=== PATIENT | female | born 1975 | race Caucasian/White ===

== ENCOUNTER 2021-03-25 10:08 | Inpatient (IN) ==
[2021-03-25] MEDS ORDERED: CEFEPIME 2,000 MG/20 ML VIAL IV STA (10:52)
[2021-03-25] MEDS ORDERED: SODIUM CHLORIDE 0.9% 1000ML 1,000 ML IV SCH ×2 (11:00→12:00)
[2021-03-25] MEDS ORDERED: ACETAMINOPHEN 1000 MG/100 ML IV IV STA (11:02)
--- NOTE | 2021-03-25 11:09 | Emergency Department Note ---
Impression & Plan Fever, Tachycardia, Dysuria, Vaginal discharge, Failure of outpatient treatment ED Provider Note NAME: YANE OCONNOR AGE: 45 SEX: F : 1975 ARRIVES VIA: Ambulance INFORMANT: [Patient] ED PROVIDER(S): [Manjinder Garay MD] CHIEF COMPLAINT: Illness HISTORY OF PRESENT ILLNESS: The patient is a 45-year-old female presents with about 10 days of symptoms. She initially had some burning with urination and felt she may have had a UTI. She was started on Cipro for a UTI by her doctors office but, the culture returned negative so it was stopped. The patient then went to urgent care. A pelvic exam was performed and she was given antibiotics for the possibility of PID. She received a shot of what sounds like ceftriaxone and was placed on doxycycline and Flagyl. The patient states that she was told that all of her STD cultures returned negative. The patient has had a fever, headache and some nausea with some mild diarrhea for about a week. She has noticed continued vaginal discharge. Patient was seen a few days ago here in the ED and a Gomez catheter was placed because of urinary retention. She was placed on cefdinir in addition to the doxycycline and Flagyl for a potential of UTI. Yesterday, the patient saw urology and they felt this was a pelvic issue, not a urinary issue. 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 There has been no cough or congestion. She has had no vomiting. She does have an IUD. She is vaccinated for COVID-19, no influenza vaccination. REVIEW OF SYSTEMS: See HPI for pertinent positives and negatives. A total of ten systems were reviewed and were otherwise negative. PMHx/PSHx: See Below SOCIAL HISTORY: See Below. PHYSICAL EXAM: GENERAL: Patient is in no acute distress. HEENT: No acute trauma, normocephalic atraumatic, mucous membranes moist, no nasal congestion, no scleral icterus. NECK: No stridor, no adenopathy, no meningismus, trachea is midline. LUNGS: Clear to auscultation bilaterally, no wheeze, no rhonchi, breath sounds equal. HEART: Mildly tachycardic, regular rhythm, no murmurs. ABDOMEN: Soft, nontender, bowel sounds positive, no hernias, no peritonitis. EXTREMITIES: No cyanosis or edema, full range of motion of all the joints without pain or difficulty, no signs for acute trauma. NEUROLOGIC: Oriented x 3, no acute motor or sensory deficits, no focal weakness. SKIN: No rash, no jaundice, no diaphoresis. Vaginal: There is a Gomez catheter in place. Patient has a brown murky di scharge noted vaginally. A culture was obtained. She is quite tender in the vaginal area although, there is no erythema of the vaginal area/groin that would indicate cellulitis. The patient could not tolerate a speculum exam. This exam was performed with a nurse duralumin mechanic. DIFFERENTIAL DIAGNOSIS: Endometritis, UTI, PID, vaginitis, cervicitis, sepsis, bacteremia, dehydration, viral illness, COVID-19 or influenza, among others. EMERGENCY DEPARTMENT COURSE/PROCEDURES: ECG: Indication was tachycardia. The ECG shows a sinus tachycardia with a rate of 107. There is no ST elevation, no PVCs. The QTc is 448. Continuous Cardiac Monitoring: An order was placed for continuous cardiac monitoring. The monitor shows a rate of 109 with sinus tachycardia. Critical Care Note: I have personally spent 47 minutes of critical care time in the direct management of this patient. This includes bedside care, interpretation of diagnostic studies, and testing, discussion with consultants, patient, and family members, and other required patient management activities. This 47 minutes is in excess of all separately billable procedures. MEDICAL DECISION MAKING: There is no leukocytosis, in fact, the white count was slightly low. There was a subtle anemia with a hemoglobin of 11.7. There was a normal platelet count. No coagulopathy. Sodium was slightly low at 133, no kidney failure. Lactic acid level was not elevated making severe sepsis less likely. AST was slightly elevated, the alk phos and bilirubin were essentially normal. Procalcitonin level was normal. testing was negative. Urinalysis showed some blood and a few white cells, no bacteria by UA. Covid testing returned negative. Influenza testing returned negative. RSV testing returned negative. Chest film did not show any evidence for pneumonia. A culture of the vaginal discharge was sent. The patient presents febrile and tachycardic. She has been on different antibiotics without any improvement. She presents today as she is feeling no better. I do think the patient requires a hospital stay. I am concerned about a vaginal/uterine infection. I did contact OB. The patient was seen by OB in this ED department. The patient will be hospitalized. OB was concerned for the possibility of a herpes infection. The patient is aware of her findings. She understands the need for a hospital stay. I did speak with case management. During the patient's ER time, she was given IV saline, 2 L. She was given IV cefepime and IV Tylenol. Past Med/Surg History Medical History (Updated 03/25/21 @ 14:20 by Manjinder Garay MD) Chronic steroid use Diabetes Hearing loss IUD (intrauterine device) in place No pertinent family history UTI (urinary tract infection) Surgical History H/O sinus surgery Family History Other No pertinent family history Social History Smoking Status: Never smoker Preferred Language: Slovenian Communication Ability: Effective Visual Impairment: No Limitations Hearing Ability: Hard of Hearing Feels Safe at Home: Yes Allergies Allergies Allergy/AdvReac Type Severity Reaction Status Date / Time morphine Allergy Mild HIVES Verified 03/25/21 12:13 Penicillins Allergy Mild HIGH FEVER Verified 03/25/21 12:13 AND HIVES Sulfa (Sulfonamide Allergy Mild HIVES Verified 03/25/21 12:13 Antibiotics) clindamycin Allergy Hives Unverified 03/25/21 12:13 Home Meds Home Medications Medication Instructions Recorded Confirmed azathioprine 50 mg tablet 100 mg PO BID 07/19/18 03/25/21 ibuprofen 200 mg tablet 600 mg PO QID PRN 07/19/18 03/25/21 lisinopril 20 0 tab PO QAM 07/19/18 03/25/21 mg-hydrochlorothiazide 12.5 mg tablet omeprazole 20 mg capsule,delayed 20 mg PO QAM 07/19/18 03/25/21 release semaglutide 1 mg/dose (2 mg/1.5 1 mg SUBCUT WK 07/19/18 03/25/21 mL) subcutaneous pen injector (Ozempic) cholecalciferol (vitamin D3) 25 1,000 unit PO QAM 08/29/18 03/25/21 mcg (1,000 unit) capsule (Vitamin D3) levonorgestrel 14 mcg/24 hrs (3 14 mcg INTRAUTERINE UD 08/29/18 03/23/21 yrs) 13.5 mg intrauterine device (Yumiko) prednisone 5 mg tablet 7.5 mg PO QAM 08/29/18 03/25/21 doxycycline hyclate 100 mg capsule 100 mg PO BID 03/23/21 03/25/21 acetaminophen 500 mg tablet 1,000 mg PO QID PRN 03/25/21 03/25/21 Previous Rx's Medication Instructions Recorded cefdinir 300 mg capsule 300 mg PO BID 10 Days #20 cap 03/23/21 Results & Data (ED) Vital Signs Vital Signs - 24 hr 03/25/21 10:13 03/25/21 12:45 03/25/21 13:00 Temperature 39.3 C H Temperature Source Oral Pulse Rate - Lying 107 H Pulse Rate - Sitting 119 H Pulse Rate - Standing 122 H Pulse Rate 120 H Pulse Rate [Right Finger] 109 H Respiratory Rate 18 18 Respiratory Depth Normal Blood Pressure - Lying 103/69 Blood Pressure - Sitting 116/72 Blood Pressure- Standing 105/69 Blood Pressure 139/76 Blood Pressure [Left Arm] 128/73 Blood Pressure Mean 97 Blood Pressure Mean [Left Arm] 91 Pulse Oximetry 97 97 Oxygen Delivery Method Room Air Room Air Sepsis Recent Fever Within 48 Hours No Sepsis New/Unexplained Change in Mental Status N/A Sepsis Action Taken by Nursing Physician Notified 03/25/21 13:03 Temperature Temperature Source Pulse Rate - Lying Pulse Rate - Sitting Pulse Rate - Standing Pulse Rate Pulse Rate [Right Finger] Respiratory Rate Respiratory Depth Blood Pressure - Lying Blood Pressure - Sitting Blood Pressure- Standing Blood Pressure Blood Pressure [Left Arm] Blood Pressure Mean Blood Pressure Mean [Left Arm] Pulse Oximetry Oxygen Delivery Method Room Air Sepsis Recent Fever Within 48 Hours Sepsis New/Unexplained Change in Mental Status Sepsis Action Taken by Assisted Medications Current Medication List: was personally reviewed by me Laboratory Data Attestation: I reviewed the patient's lab results. Result diagrams: 03/25/21 11:09 03/25/21 11:09 Lab Results 03/25/21 03/25/21 03/25/21 Range/Units 11:09 11:09 11:09 WBC 4.48 L (4.8-10.8) K/uL RBC 3.77 L (4.2-5.4) M/uL Hgb 11.7 L (12.0-16.0) g/dL Hct 35.2 L (37-47) % MCV 93.4 (80-100) fL MCH 31.0 (25-34) pg MCHC 33.2 (32-36) g/dL RDW Std Deviation 53.9 H (36.4-46.3) fL RDW Coeff of Don 15.7 H (11.5-14.5) % Plt Count 244 (130-400) K/uL MPV 10.9 H (7.4-10.4) fL Immature Gran % (Auto) 1.6 % Neut % (Auto) 87.7 % Lymph % (Auto) 5.4 % [place] % (Auto) 4.9 % Eos % (Auto) 0.2 % Baso % (Auto) 0.2 % Neut # (Auto) 3.93 (1.4-6.5) K/uL Lymph # (Auto) 0.24 L (1.2-3.4) K/uL [place] # (Auto) 0.22 (0.11-0.59) K/uL Eos # (Auto) 0.01 (0-0.5) K/uL Baso # (Auto) 0.01 (0-0.2) K/uL Immature Gran # (Auto) 0.07 H (0.00-0.02) K/uL PT 11.7 (9.0-12.0) Seconds INR 1.2 H (0.9-1.1) APTT 28.5 (21.0-31.0) Seconds PTT Ratio 1.1 Sodium (136-145) mmol/L Potassium (3.5-5.1) mmol/L Chloride (98-107) mmol/L Carbon Dioxide (21-32) mmol/L Anion Gap (3-11) BUN (7-18) mg/dl Creatinine (0.6-1.2) mg/dl Est Cr Clr Drug Dosing ml/min Est GFR ( Amer) ml/min Est GFR (Non-Af Amer) ml/min BUN/Creatinine Ratio (10-20) Glucose (70-99) mg/dl Lactate (0.4-2.0) mmol/L Calcium (8.5-10.1) mg/dl Magnesium (1.8-2.4) mg/dl Total Bilirubin (0.2-1) mg/dl AST (15-37) U/L ALT (12-78) Alkaline Phosphatase (45-117) U/L Total Protein (6.4-8.2) gm/dl Albumin (3.4-5.0) gm/dl Globulin (2.5-4.0) gm/dl Albumin/Globulin Ratio (0.9-2) Procalcitonin 0.34 (0-0.5) ng/ml HCG, Qual Negative (Negative) Urine Color Urine Appearance (Clear) Urine pH (4.5-7.5) Ur Specific Ransom (1.000-1.030) Urine Protein (Negative) Urine Glucose (UA) (Negative) Urine Ketones (Negative) Urine Blood (Negative) Urine Nitrite (Negative) Urine Bilirubin (Negative) Urine Urobilinogen (Negative) Ur Leukocyte Esterase (Negative) Urine WBC (Auto) (0-5) /hpf Urine RBC (Auto) (0-4) /hpf U Hyaline Cast (Auto) (0-5) /lpf U Epithel Cells (Auto) (0-5) /lpf Urine Bacteria (Auto) (Negative) SARS-CoV-2 (PCR) (Negative) Influenza Type A (PCR) (Neg) Influenza Type B (PCR) (Neg) RSV (RT-PCR) (Neg) 03/25/21 03/25/21 03/25/21 Range/Units 11:09 11:09 12:30 WBC (4.8-10.8) K/uL RBC (4.2-5.4) M/uL Hgb (12.0-16.0) g/dL Hct (37-47) % MCV (80-100) fL MCH (25-34) pg MCHC (32-36) g/dL RDW Std Deviation (36.4-46.3) fL RDW Coeff of Don (11.5-14.5) % Plt Count (130-400) K/uL MPV (7.4-10.4) fL Immature Gran % (Auto) % Neut % (Auto) % Lymph % (Auto) % [place] % (Auto) % Eos % (Auto) % Baso % (Auto) % Neut # (Auto) (1.4-6.5) K/uL Lymph # (Auto) (1.2-3.4) K/uL [place] # (Auto) (0.11-0.59) K/uL Eos # (Auto) (0-0.5) K/uL Baso # (Auto) (0-0.2) K/uL Immature Gran # (Auto) (0.00-0.02) K/uL PT (9.0-12.0) Seconds INR (0.9-1.1) APTT (21.0-31.0) Seconds PTT Ratio Sodium 133 L (136-145) mmol/L Potassium 3.5 (3.5-5.1) mmol/L Chloride 102 (98-107) mmol/L Carbon Dioxide 25 (21-32) mmol/L Anion Gap 6.0 (3-11) BUN 8 D (7-18) mg/dl Creatinine 0.82 (0.6-1.2) mg/dl Est Cr Clr Drug Dosing 95.4 ml/min Est GFR ( Amer) 101.6 ml/min Est GFR (Non-Af Amer) 87.6 ml/min BUN/Creatinine Ratio 9.3 L (10-20) Glucose 158 H (70-99) mg/dl Lactate 0.9 (0.4-2.0) mmol/L Calcium 8.6 (8.5-10.1) mg/dl Magnesium 2.0 (1.8-2.4) mg/dl Total Bilirubin 0.8 (0.2-1) mg/dl AST 87 H (15-37) U/L ALT 68 (12-78) Alkaline Phosphatase 44 L (45-117) U/L Total Protein 7.1 (6.4-8.2) gm/dl Albumin 2.5 L (3.4-5.0) gm/dl Globulin 4.6 H (2.5-4.0) gm/dl Albumin/Globulin Ratio 0.5 L (0.9-2) Procalcitonin (0-0.5) ng/ml HCG, Qual (Negative) Urine Color Dark Yellow Urine Appearance Clear (Clear) Urine pH 6.0 (4.5-7.5) Ur Specific [place]ansom 1.022 (1.000-1.030) Urine Protein 1+ H (Negative) Urine Glucose (UA) Negative (Negative) Urine Ketones 1+ H (Negative) Urine Blood 3+ H (Negative) Urine Nitrite Negative (Negative) Urine Bilirubin Negative (Negative) Urine Urobilinogen Negative (Negative) Ur Leukocyte Esterase 1+ H (Negative) Urine WBC (Auto) 10-30 H (0-5) /hpf Urine RBC (Auto) >30 H (0-4) /hpf U Hyaline Cast (Auto) 1-5 (0-5) /lpf U Epithel Cells (Auto) 20-30 H (0-5) /lpf Urine Bacteria (Auto) Negative (Negative) SARS-CoV-2 (PCR) (Negative) Influenza Type A (PCR) (Neg) Influenza Type B (PCR) (Neg) RSV (RT-PCR) (Neg) 03/25/21 Range/Units 13:13 WBC (4.8-10.8) K/uL RBC (4.2-5.4) M/uL Hgb (12.0-16.0) g/dL Hct (37-47) % MCV (80-100) fL MCH (25-34) pg MCHC (32-36) g/dL RDW Std Deviation (36.4-46.3) fL RDW Coeff of Don (11.5-14.5) % Plt Count (130-400) K/uL MPV (7.4-10.4) fL Immature Gran % (Auto) % Neut % (Auto) % Lymph % (Auto) % [place] % (Auto) % Eos % (Auto) % Baso % (Auto) % Neut # (Auto) (1.4-6.5) K/uL Lymph # (Auto) (1.2-3.4) K/uL [place] # (Auto) (0.11-0.59) K/uL Eos # (Auto) (0-0.5) K/uL Baso # (Auto) (0-0.2) K/uL Immature Gran # (Auto) (0.00-0.02) K/uL PT (9.0-12.0) Seconds INR (0.9-1.1) APTT (21.0-31.0) Seconds PTT Ratio Sodium (136-145) mmol/L Potassium (3.5-5.1) mmol/L Chloride (98-107) mmol/L Carbon Dioxide (21-32) mmol/L Anion Gap (3-11) BUN (7-18) mg/dl Creatinine (0.6-1.2) mg/dl Est Cr Clr Drug Dosing ml/min Est GFR ( Amer) ml/min Est GFR (Non-Af Amer) ml/min BUN/Creatinine Ratio (10-20) Glucose (70-99) mg/dl Lactate (0.4-2.0) mmol/L Calcium (8.5-10.1) mg/dl Magnesium (1.8-2.4) mg/dl Total Bilirubin (0.2-1) mg/dl AST (15-37) U/L ALT (12-78) Alkaline Phosphatase (45-117) U/L Total Protein (6.4-8.2) gm/dl Albumin (3.4-5.0) gm/dl Globulin (2.5-4.0) gm/dl Albumin/Globulin Ratio (0.9-2) Procalcitonin (0-0.5) ng/ml HCG, Qual (Negative) Urine Color Urine Appearance (Clear) Urine pH (4.5-7.5) Ur Specific [place] (1.000-1.030) Urine Protein (Negative) Urine Glucose (UA) (Negative) Urine Ketones (Negative) Urine Blood (Negative) Urine Nitrite (Negative) Urine Bilirubin (Negative) Urine Urobilinogen (Negative) Ur Leukocyte Esterase (Negative) Urine WBC (Auto) (0-5) /hpf Urine RBC (Auto) (0-4) /hpf U Hyaline Cast (Auto) (0-5) /lpf U Epithel Cells (Auto) (0-5) /lpf Urine Bacteria (Auto) (Negative) SARS-CoV-2 (PCR) NEGATIVE (Negative) Influenza Type A (PCR) Negative (Neg) Influenza Type B (PCR) Negative (Neg) RSV (RT-PCR) Negative (Neg) Administered Medications Valacyclovir HCl (Valacyclovir Hcl 500 Mg Tablet) 1,000 mg PO BID KATHY Stop: 04/04/21 12:59 Last Admin: 03/25/21 13:37 Dose: 1,000 mg Documented by: [id number] Discontinued Medications Acetaminophen (Acetaminophen 1000 Mg/100 Ml Iv) 1,000 mg IV NOW STA Stop: 03/25/21 11:03 Last Admin: 03/25/21 12:31 Dose: 1,000 mg Documented by: [id number] Cefepime HCl (Maxipime) 2,000 mg in 20 mls @ 5 mls/min IV NOW STA; Protocol Stop: 03/25/21 10:55 Last Admin: 03/25/21 12:21 Dose: 5 mls/min Documented by: [id number] Imaging Data Radiologist's Impression: Chest X-Ray 03/25/21 10:53 XR chest 1V portable CLINICAL HISTORY: SEPSIS COMPARISON STUDY: Chest radiograph and chest CT September 14, 2020. FINDINGS: Lung volumes are normal. Linear left lower lung opacity reflects subsegmental atelectasis. There is no pneumothorax or pleural effusion. Cardiac size is normal. Mediastinal contours are normal. There is no evidence for pulmonary edema. IMPRESSION: No acute cardiopulmonary findings. ACT 112: Negative or not required by law. Electronically signed by: Aldo Reeder M.D. 03/25/2021 11:07 AM Discharge Plan Visit Data Chief Complaint: Illness ED Provider: Manjinder Garay Discharge Problem: Fever, Tachycardia, Dysuria, Vaginal discharge, Failure of outpatient treatment Patient Disposition: Admitted As Inpatient Condition: Fair Forms Stand Alone Forms: [facility] Nicut Xierkang Prescriptions Prescriptions: No Action prednisone 5 mg tablet 7.5 mg PO QAM RF: 0 cholecalciferol (vitamin D3) [Vitamin D3] 1,000 unit Capsule 1,000 unit PO QAM RF: 0 Yumiko 14 mcg/24 hrs (3 yrs) 13.5 mg Intrauterine Device 14 mcg INTRAUTERINE UD RF: 0 lisinopril-hydrochlorothiazide 20-12.5 mg tablet 0 tab PO QAM RF: 0 azathioprine 50 mg tablet 100 mg PO BID RF: 0 ibuprofen 200 mg Tablet 600 mg PO QID PRN (Reason: Pain) RF: 0 omeprazole 20 mg capsule,delayed release(DR/EC) 20 mg PO QAM RF: 0 Ozempic 1 mg/dose (2 mg/1.5 mL) pen injector 1 mg subcut WK RF: 0 acetaminophen 500 mg Tablet 1,000 mg PO QID PRN (Reason: Fever) RF: 0 doxycycline hyclate 100 mg capsule 100 mg PO BID RF: 0 cefdinir 300 mg capsule 300 mg PO BID 10 Days Qty: 20 RF: 0 Referrals Referrals: John Matt DO [Primary Care Provider] -
[2021-03-25 12:37] LABS: Hematocrit (blood only) 35.2 % (37-47); Hemoglobin 11.7 g/dL (12.0-16.0); Mean Corpuscular Hgb Conc 33.2 g/dL (32-36); Mean Corpuscular Volume 93.4 fL (80-100); Red Blood Count 3.77 M/uL (4.2-5.4); White Blood Count 4.48 K/uL (4.8-10.8)
[2021-03-25 12:38] LABS: Basophils # (auto) 0.01 K/uL (0-0.2); Basophils % (auto) 0.2 %; Eosinophils # (auto) 0.01 K/uL (0-0.5); Eosinophils % (auto) 0.2 %; Immature Granulocytes # (auto) 0.07 K/uL (0.00-0.02); Immature Granulocytes % (auto) 1.6 %; Lymphocytes # (auto) 0.24 K/uL (1.2-3.4); Lymphocytes % (auto) 5.4 %; Mean Platelet Volume 10.9 fL (7.4-10.4); Monocytes # (auto) 0.22 K/uL (0.11-0.59); Monocytes % (auto) 4.9 %; Neutrophils # (auto) 3.93 K/uL (1.4-6.5); Neutrophils % (auto) 87.7 %; Platelet Count 244 K/uL (130-400); RDW Coefficient of Variation 15.7 % (11.5-14.5); RDW Standard Deviation 53.9 fL (36.4-46.3)
[2021-03-25 12:48] LABS: Appearance Urine Clear (Clear); Bacteria Urine Automated Negative (Negative); Bilirubin Urine Negative (Negative); Blood Urine 3+ (Negative); Color Urine Dark Yellow; Epithelial Cell Urine Auto 20-30 /lpf (0-5); Glucose Urine UA Negative (Negative); Ketones Urine 1+ (Negative); Leukocyte Esterase Urine 1+ (Negative); Nitrite Urine Negative (Negative); Protein Urine 1+ (Negative); RBC Urine Automated >30 /hpf (0-4); Specific Gravity Urine 1.022 (1.000-1.030); Urobilinogen Urine Negative (Negative)
[2021-03-25 12:51] LABS: INR 1.2 (0.9-1.1); Partial Thromboplastin Ratio 1.1; Partial Thromboplastin Time 28.5 Seconds (21.0-31.0); Prothrombin Time 11.7 Seconds (9.0-12.0)
[2021-03-25 13:02] LABS: Pregnancy Test, Serum Negative (Negative)
[2021-03-25 13:14] LABS: Albumin Globulin Ratio 0.5 (0.9-2); Albumin Level 2.5 gm/dl (3.4-5.0); BUN Creatinine Ratio 9.3 (10-20); Bilirubin,Total 0.8 mg/dl (0.2-1); Calcium 8.6 mg/dl (8.5-10.1); Creatinine Clr Calc Pharmacy 95.4 ml/min; Est GFR (African American) 101.6 ml/min; Est GFR (Non-African American) 87.6 ml/min; Globulin 4.6 gm/dl (2.5-4.0); Potassium 3.5 mmol/L (3.5-5.1); Total Protein 7.1 gm/dl (6.4-8.2)
[2021-03-25 13:20] LABS: Procalcitonin 0.34 ng/ml (0-0.5)
[2021-03-25] MEDS: valACYclovir HCL 500 MG TABLET PO SCH ×2 (13:37→22:06)
[2021-03-25 14:03] LABS: Influenza A virus by PCR Negative (Neg); Influenza B virus by PCR Negative (Neg); RSV by PCR Negative (Neg)
[2021-03-25] MEDS: LACTATED RINGER'S 1,000 ML IV SCH (17:00)
[2021-03-25] MEDS: IBUPROFEN 600 MG TAB PO PRN (19:53)
[2021-03-25] MEDS ORDERED: GLUCOSE 40% GEL 15 GM TUBE PO PRN (20:15)
[2021-03-25] MEDS ORDERED: GLUCAGON FOR INJ 1 MG VIAL SQ PRN (20:15)
[2021-03-25] MEDS ORDERED: GLUCOSE 10 TABS/TUBE PO PRN (20:15)
[2021-03-25] MEDS ORDERED: CARBOHYDRATES FOR HYPOGLYCEMIA PO PRN (20:15)
[2021-03-25] MEDS ORDERED: DEXTROSE 50% 50 ML SYRINGE IV PRN (20:15)
[2021-03-25] MEDS ORDERED: INSULIN ASPART 100 UNITS/ML 3 ML PEN SC SCH (21:00)
[2021-03-25] MEDS: CEFDINIR 300 MG CAP PO SCH (22:04)
[2021-03-25] MEDS: DOXYCYCLINE HYCLATE 100 MG CAP PO SCH (22:05)
[2021-03-25] MEDS: azaTHIOprine 50 MG TAB PO SCH (22:07)
[2021-03-26] MEDS: LACTATED RINGER'S 1,000 ML IV SCH ×3 (00:55→16:48)
[2021-03-26] MEDS: azaTHIOprine 50 MG TAB PO SCH ×2 (08:51→20:13)
[2021-03-26] MEDS: CEFDINIR 300 MG CAP PO SCH ×2 (08:53→20:14)
[2021-03-26] MEDS: CHOLECALCIFEROL 1,000 UNITS 25 MCG TAB PO SCH (08:54)
[2021-03-26] MEDS: DOXYCYCLINE HYCLATE 100 MG CAP PO SCH ×2 (08:54→20:13)
[2021-03-26] MEDS: LISINOPRIL/HCTZ 20/12.5MG 1 TAB TAB PO SCH (08:55)
[2021-03-26] MEDS: PANTOprazole 40 MG TAB PO SCH (08:57)
[2021-03-26] MEDS: predniSONE 2.5 MG TAB PO SCH (08:57)
[2021-03-26] MEDS: valACYclovir HCL 500 MG TABLET PO SCH ×2 (08:58→20:12)
--- NOTE | 2021-03-26 11:55 | Progress Note ---
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
[2021-03-26 12:08] LABS: Basophils # (auto) 0.01 K/uL (0-0.2); Basophils % (auto) 0.3 %; Eosinophils # (auto) 0.03 K/uL (0-0.5); Eosinophils % (auto) 0.9 %; Hematocrit (blood only) 34.3 % (37-47); Immature Granulocytes # (auto) 0.05 K/uL (0.00-0.02); Immature Granulocytes % (auto) 1.5 %; Lymphocytes # (auto) 0.26 K/uL (1.2-3.4); Mean Corpuscular Hemoglobin 30.7 pg (25-34); Mean Corpuscular Volume 95.8 fL (80-100); Mean Platelet Volume 10.3 fL (7.4-10.4); Monocytes # (auto) 0.19 K/uL (0.11-0.59); Monocytes % (auto) 5.9 %; Neutrophils # (auto) 2.69 K/uL (1.4-6.5); Neutrophils % (auto) 83.4 %; Platelet Count 267 K/uL (130-400); RDW Standard Deviation 56.6 fL (36.4-46.3); Red Blood Count 3.58 M/uL (4.2-5.4); White Blood Count 3.23 K/uL (4.8-10.8)
[2021-03-26 12:12] LABS: Mean Corpuscular Hgb Conc 32.1 g/dL (32-36)
[2021-03-26 12:33] LABS: Albumin Level 2.2 gm/dl (3.4-5.0); BUN Creatinine Ratio 11.9 (10-20); Creatinine Clr Calc Pharmacy 130.4 ml/min; Est GFR (African American) 132.4 ml/min; Est GFR (Non-African American) 114.2 ml/min; Potassium 3.5 mmol/L (3.5-5.1)
[2021-03-26 12:36] LABS: Albumin Globulin Ratio 0.5 (0.9-2); Bilirubin,Total 0.8 mg/dl (0.2-1); Globulin 4.2 gm/dl (2.5-4.0); Total Protein 6.4 gm/dl (6.4-8.2)
--- NOTE | 2021-03-26 12:55 | Electrocardiogram Report ---
Test Reason : Blood Pressure : / mmHG Vent. Rate : 107 BPM Atrial Rate : 107 BPM P-R Int : 152 ms QRS Dur : 076 ms QT Int : 336 ms P-R-T Axes : 046 043 048 degrees QTc Int : 448 ms Sinus tachycardia Otherwise normal ECG When compared with ECG of 14-SEP-2020 11:04, No significant change was found Confirmed by Abhishek Kidd ([id number]) on 03/26/2021 12:55:07 PM Referred By: REFERRED SELF Confirmed By:Abhishek Kidd
[2021-03-26] MEDS: LIDOCAINE 4% CREAM 15 GM TUBE EXT PRN (16:51)
[2021-03-26] MEDS: IBUPROFEN 600 MG TAB PO PRN (16:52)
[2021-03-26] MEDS: ACETAMINOPHEN 500 MG TAB PO PRN (20:33)
[2021-03-27] MEDS: LACTATED RINGER'S 1,000 ML IV SCH ×2 (00:15→08:09)
--- NOTE | 2021-03-27 07:14 | Gynecologic Progress Note ---
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 Plan to d/c home tomorrow if doing well Admission and Anticipated Discharge Date Admission Date: March 25, 2021 Subjective Patient comfortable in bed, was unable to urinate during night or first thing this AM. States she did not drink much liquid overnight, however normally she is able to urinate first thing in the morning. She had diarrhea last night. Denies fevers or chills. Otherwise feeling well. Patient states she is not keen to have a catheter placed, and one of the worse top 3 pains of her life. Review of Systems Review of Systems: All systems reviewed & are unremarkable except as noted in HPI & below Physical Exam Constitutional: WD/WN, vitals as above Respiratory: normal respiratory effort, lungs clear to auscultation Cardiovascular: RRR, no murmur, no edema Gastrointestinal (Abdomen): normal bowel sounds, soft, nontender, no hepatosplenomegaly Results & Data ([facility]) Vital Signs (Past 12 Hours) Vital Signs Temp Pulse Resp BP Pulse Ox 03/27/21 00:15 36.5 C 78 16 118/71 98 03/26/21 19:55 37.0 C 87 17 111/77 98
[2021-03-27] MEDS ORDERED: LORazepam 0.5 MG TAB SL STA (07:55)
[2021-03-27] MEDS: CEFDINIR 300 MG CAP PO SCH ×2 (08:05→20:59)
[2021-03-27] MEDS: azaTHIOprine 50 MG TAB PO SCH ×2 (08:05→20:59)
[2021-03-27] MEDS: DOXYCYCLINE HYCLATE 100 MG CAP PO SCH ×2 (08:06→21:00)
[2021-03-27] MEDS: CHOLECALCIFEROL 1,000 UNITS 25 MCG TAB PO SCH (08:06)
[2021-03-27] MEDS: LISINOPRIL/HCTZ 20/12.5MG 1 TAB TAB PO SCH (08:07)
[2021-03-27] MEDS: predniSONE 2.5 MG TAB PO SCH (08:07)
[2021-03-27] MEDS: PANTOprazole 40 MG TAB PO SCH (08:07)
[2021-03-27] MEDS: valACYclovir HCL 500 MG TABLET PO SCH ×2 (08:08→20:59)
[2021-03-27] MEDS ORDERED: BENZOCAINE 20% AER SPR 82.5 GM CAN EXT PRN (08:48)
[2021-03-27] MEDS: LIDOCAINE 4% CREAM 15 GM TUBE EXT PRN (08:50)
[2021-03-27] MEDS ORDERED: BENZOCAINE 20% AER SPR 82.5 GM CAN EXT ONE (08:50)
[2021-03-27] MEDS: ACETAMINOPHEN 500 MG TAB PO PRN (16:17)
[2021-03-27] MEDS: IBUPROFEN 600 MG TAB PO PRN (17:35)
[2021-03-27 18:16] LABS: SARS CoV2 RNA(COVID-19) InHosp NEGATIVE (Negative)
[2021-03-28 05:45] LABS: Basophils # (auto) 0.02 K/uL (0-0.2); Basophils % (auto) 0.5 %; Eosinophils # (auto) 0.07 K/uL (0-0.5); Eosinophils % (auto) 1.9 %; Hemoglobin 10.9 g/dL (12.0-16.0); Immature Granulocytes # (auto) 0.04 K/uL (0.00-0.02); Immature Granulocytes % (auto) 1.1 %; Lymphocytes # (auto) 0.73 K/uL (1.2-3.4); Lymphocytes % (auto) 19.6 %; Mean Corpuscular Hemoglobin 30.9 pg (25-34); Mean Corpuscular Hgb Conc 32.1 g/dL (32-36); Mean Corpuscular Volume 96.3 fL (80-100); Mean Platelet Volume 9.5 fL (7.4-10.4); Monocytes % (auto) 10.8 %; Neutrophils # (auto) 2.46 K/uL (1.4-6.5); Neutrophils % (auto) 66.1 %; Platelet Count 350 K/uL (130-400); RDW Coefficient of Variation 15.6 % (11.5-14.5); RDW Standard Deviation 54.9 fL (36.4-46.3); Red Blood Count 3.53 M/uL (4.2-5.4); White Blood Count 3.72 K/uL (4.8-10.8)
[2021-03-28 06:23] LABS: Albumin Level 2.2 gm/dl (3.4-5.0); BUN Creatinine Ratio 10.2 (10-20); Calcium 8.5 mg/dl (8.5-10.1); Creatinine Clr Calc Pharmacy 119.7 ml/min; Est GFR (African American) 128.7 ml/min; Potassium 3.5 mmol/L (3.5-5.1)
[2021-03-28 06:26] LABS: Albumin Globulin Ratio 0.6 (0.9-2); Bilirubin,Total 0.7 mg/dl (0.2-1); Total Protein 6.2 gm/dl (6.4-8.2)
[2021-03-28] MEDS: valACYclovir HCL 500 MG TABLET PO SCH ×2 (07:44→20:52)
[2021-03-28] MEDS: DOXYCYCLINE HYCLATE 100 MG CAP PO SCH (07:44)
[2021-03-28] MEDS: CHOLECALCIFEROL 1,000 UNITS 25 MCG TAB PO SCH (07:45)
[2021-03-28] MEDS: PANTOprazole 40 MG TAB PO SCH (07:45)
[2021-03-28] MEDS: azaTHIOprine 50 MG TAB PO SCH ×2 (07:45→20:52)
[2021-03-28] MEDS: LISINOPRIL/HCTZ 20/12.5MG 1 TAB TAB PO SCH (07:45)
[2021-03-28] MEDS: CEFDINIR 300 MG CAP PO SCH (07:46)
[2021-03-28] MEDS: predniSONE 2.5 MG TAB PO SCH (07:46)
--- NOTE | 2021-03-28 17:26 | Obstetrical Progress Note ---
Date of Service March 28, 2021 Assessment & Plan (1) Herpes, vulvovaginitis: Hd #4 Pt doing well Folety cath reinserted yesterday for urinary retention PE; Vulva lesions improved compared to day of admission Discussed continuing marvin for 1 more week before removal or trial of removal with Cardura tonight Pt Wishes to try the later Plan remove marvin tonight and start Cardura and blader scan Subjective Review of Systems All systems reviewed & are unremarkable except as noted in HPI & below Physical Exam Constitutional WD/WN, vitals as above Eyes PERRL, conjunctivae normal, anicteric sclerae ENMT external ear and nose normal, oropharynx normal Neck trachea midline, no thyromegaly Respiratory normal respiratory effort, lungs clear to auscultation Cardiovascular RRR, no murmur, no edema Chest (Breasts) normal inspection/palpation of breasts Gastrointestinal (Abdomen) normal bowel sounds, soft, nontender, no hepatosplenomegaly Musculoskeletal no cyanosis or clubbing, extremities motor strength 5/5 Skin + incision (Incision clean,dry and intact) Neurologic patellar DTR's 2+ bilat, sensation intact Psychiatric A+Ox3, euthymic affect Genitourinary no vaginal lesions, no adnexal mass Lymphatic no cervical or axillary lymphadenopathy Results & Data ([facility]) Vital Signs (Past 12 Hours) Vital Signs Temp Pulse Resp BP Pulse Ox 03/28/21 15:27 36.8 C 84 18 116/73 97 03/28/21 11:15 36.9 C 84 18 118/79 96 03/28/21 07:45 37.6 C H 84 18 123/76 96
[2021-03-28] MEDS ORDERED: DOXAZosin MESYLATE TAB 2 MG TAB PO SCH (21:00)
[2021-03-29] MEDS: valACYclovir HCL 500 MG TABLET PO SCH (08:25)
[2021-03-29] MEDS: azaTHIOprine 50 MG TAB PO SCH (08:25)
[2021-03-29] MEDS: CHOLECALCIFEROL 1,000 UNITS 25 MCG TAB PO SCH (08:26)
[2021-03-29] MEDS: PANTOprazole 40 MG TAB PO SCH (08:26)
[2021-03-29] MEDS: LISINOPRIL/HCTZ 20/12.5MG 1 TAB TAB PO SCH (08:27)
[2021-03-29] MEDS: predniSONE 2.5 MG TAB PO SCH (08:27)
[2021-03-29] MEDS: LIDOCAINE 4% CREAM 15 GM TUBE EXT PRN (08:28)
[2021-03-29] MEDS ORDERED: SEMAGLUTIDE INJ SQ SCH ×2 (09:00)
--- NOTE | 2021-03-29 09:15 | Gynecologic Progress Note ---
Date of Service March 29, 2021 Assessment & Plan (1) Herpes, vulvovaginitis: Plan: Hd #5 Pt doing well Continue Cardura and f/u in office in 1 week Admission and Anticipated Discharge Date Admission Date: March 25, 2021 Subjective Patient doing well since Gomez was removed. She is able to ambulate, and urinate. Postvoid residual bladder scans have all been less than 100. She is keen to go home this morning. No other complaints. Review of Systems Review of Systems: All systems reviewed & are unremarkable except as noted in HPI & below Physical Exam Constitutional: WD/WN, vitals as above Respiratory: normal respiratory effort, lungs clear to auscultation Cardiovascular: RRR, no murmur, no edema Gastrointestinal (Abdomen): normal bowel sounds, soft, nontender, no hepatosplenomegaly Results & Data ([facility]) Vital Signs (Past 12 Hours) Vital Signs Temp Pulse Pulse Resp BP Pulse Ox 03/29/21 07:40 36.4 C L 101 H 16 109/73 03/29/21 03:30 36.4 C L 96 H 18 111/74 96 03/28/21 23:30 37.1 C 92 H 16 115/73 96
[2021-03-29 11:11] LABS: Chlamydia Trach RNA NOT DETECTED (NOT DETECTED); GC (Neis gonorrhoeae) RNA NOT DETECTED (NOT DETECTED)
[2021-03-29 21:06] LABS: Herpes Simplex Ab IgG-1 <0.90 index; Herpes Simplex Ab IgG-2 <0.90 index
== END 2021-03-29 11:58 | disposition home or self-care (01) | DRG 758 ==
LOC: ED 10:08 → EDINP 12:10 → 4N 19:09

== ENCOUNTER 2023-03-31 18:59 | Inpatient (IN) ==
--- OUTSIDE RECORDS SUMMARY | 2023-03-31 19:05 | External Medical Summary ---
Author Name Unknown Address Unknown Organization [id number]:[facility] [place] [address] Laboratory Report Ordering Provider Test Date Status 03/28/2023 10:51:27 Final Observation Date Value Abnormality Reference (Units ) Status BUN 03/28/2023 10:51:27 21 Above high normal 6-20 (mg/dL) Final Creatinine 03/28/2023 10:51:27 0.8 0.5-1.0 (mg/dL) Final Glomerular filtration rate/1.73 sq M.predicted [Volume Rate/Area] in Serum, Plasma or Blood by Creatinine-based formula (CKD-EPI) 03/28/2023 10:51:27 >90 >=60 (mL/min) Final eGFR is calculated based on the CKD-EPI 2020 equation SODIUM 03/28/2023 10:51:27 133 Below low normal 135 -146 (mmol/L) Final Potassium 03/28/2023 10:51:27 4.1 3.5-5.1 (m mol/L) Final Cl 03/28/2023 10:51:27 99 98-107 (mm ol/L) Final CO2 03/28/2023 10:51:27 20 Below low normal 22- 32 (mmol/L) Final Anion gap 03/28/2023 10:51:27 14 7-15 (mmol /L) Final Glucose 03/28/2023 10:51:27 208 Above high normal 70 -120 (mg/dL) Final Calcium 03/28/2023 10:51:27 8.4 8.4-10.2 ( mg/dL) Final Performing Location [facility] [place] [address]
--- OUTSIDE RECORDS SUMMARY | 2023-03-31 19:05 | External Medical Summary | Summary of Care ---
Author Name Unknown Organization [facility] Address [address] [place] [address] Phone [phone] Care Team Providers Care Central Supply Supervisor Name Role Phone Babatunde Mattnancy Buitragosimon Primary Care Provider Reason for Visit * Reason Comments Emergency Department Follow-Up Pt save stew with a fever the Saturday before , went to urgent care-started on doxy, continued to not feel better-went to ER treated for UTI, this past week fever was 104 at night. Went back to ER and was started back on doxy for anaplasmosis. Temp this morning was 100, pt now c/o nausea, heart is racing, short of breath, weakness. Encounter Details Date Type Department Care Team (Late st Contact Info) Description 03/28/2023 9:40 AM EST Office Visit [facility] [address] [facility] [address] Alisia Walton PA-C [address] [place] [place] [address] Anaplasmosis*; Generalized weakness; Fever in other diseases; Nausea; Dehydration; Type 2 diabetes mellitus with hemoglobin A1c goal of less than 7.0% (HCC); HTN, goal below 140/90 Allergies Active Allergy Reactions Criticality Noted Date Comments Clindamycin Hives 09/13/2020 Morphine Sulfate 01/05/2005 Penicillins 01/24/1999 hives Sulfa Antibiotics 09/03/2002 documented as of this encounter (statuses as of 03/28/2023) Medications Medication Sig Dispensed Refills Start Date End Date Status FERROUS GLUCONATE 225 (27 FE) MG PO TABS Take by mouth every morning. 0 Active Blood Glucose Monitoring Suppl (ONETOUCH ULTRA SYSTEM) w/Device KITIndications:Typ e 2 diabetes mellitus with hemoglobin A1c goal of less than 7.0% (HCC),Family history of ischemic heart disease,HTN, goal below 140/90 Use as directed 4 times a day as needed for Hyperglycemia (high sugar). 1 Kit 0 01/20/2018 Active Cholecalciferol (VITAMIN D) 1000 units Tablet Take 1 Tablet by mouth in the morning. 0 Active Kyleena 19.5 MG Intrauterine Intrauterine Device (Levonorgestrel)In dications:Encounte r for IUD insertion Insert 1 Each into uterus once. 0 Active OneTouch Ultra Blue In Vitro Strip (Glucose Blood)Indications: Type 2 diabetes mellitus with hemoglobin A1c goal of less than 7.0% (HCC),Family history of ischemic heart disease,HTN, goal below 140/90 Use up to four times a day as directed 400 Strip 4 12/12/2021 Active metFORMIN HCl 500 MG Oral Tablet (Glucophage)Indica tions:Type 2 diabetes mellitus with hemoglobin A1c goal of less than 7.0% (HCC),Family history of ischemic heart disease,HTN, goal below 140/90 TAKE 1 TABLET BY MOUTH EVERY DAY WITH BREAKFAST 90 Tablet 3 01/26/2022 Active B-12-SL 1000 MCG Sublingual Tablet Sublingual (Cyanocobalamin)In dications:B12 deficiency Place 1,000 mcg under the tongue in the morning. 90 Tablet 3 07/03/2022 Active Ozempic (1 MG/DOSE) 4 MG/3ML Subcutaneous Solution Pen-injector (Semaglutide (1 MG/DOSE))Indicatio ns:Type 2 diabetes mellitus with hemoglobin A1c goal of less than 7.0% (HCC) Inject 1 mg under the skin once a week. 9 mL 5 07/03/2022 Active Lisinopril 20 MG Oral Tablet (Prinivil)Indicati ons:HTN, goal below 140/90 TAKE 1 TABLET BY MOUTH EVERY MORNING 90 Tablet 3 07/06/2022 Active Diclofenac Sodium 1 % External Gel (Voltaren)Indicati ons:Plantar fasciitis,Right foot pain,Left foot pain APPLY 4 GRAMS TOPICALLY ON THE AREA OF THE BILATERAL FEET UP TO THREE TIMES DAILY NEEDED FOR PAIN. 150 g 3 08/03/2022 Active azaTHIOprine 50 MG Oral Tablet (Imuran)Indication s:pt taking 4 pills daily Take 2 Tablets by mouth in the morning and 2 Tablets before bedtime. 4 pills daily. 360 Tablet 3 10/15/2022 Active predniSONE 5 MG Oral Tablet (Deltasone)Indicat ions:Autoimmune inner ear disease, bilateral Take 1.5 Tablets by mouth in the morning. 135 Tablet 3 10/15/2022 Active valACYclovir HCl 500 MG Oral Tablet (Valtrex)Indicatio ns:Herpes simplex virus infection TAKE 1 TABLET BY MOUTH EVERY DAY FOR TRANSMISSION REDUCTION 90 Tablet 3 12/13/2022 Active OneTouch Delica Lancets 33GIndications:Typ e 2 diabetes mellitus with hemoglobin A1c goal of less than 7.0% ([facility]),Type 2 diabetes mellitus with diabetic polyneuropathy, without long-term current use of insulin ([facility]) Use up to 4 times daily as needed to check for hyper or hypo glycemia 100 Each 3 01/01/2023 Active Omeprazole 20 MG Oral Capsule Delayed Release (PriLOSEC)Indicati ons:Gastro-esophag eal reflux disease without esophagitis TAKE 1 CAPSULE BY MOUTH EVERY MORNING 90 Capsule 1 03/15/2023 Active Doxycycline Hyclate 100 MG Oral Tablet Take 1 Tablet by mouth in the morning and 1 Tablet before bedtime. 0 03/20/2023 Active Probiotic Daily Oral Capsule Take 1 Capsule by mouth in the morning. 0 Active Ondansetron HCl 4 MG Oral TabletIndications: Nausea Take 1 Tablet by mouth every 6 hours as needed for Nausea. 30 Tablet 1 03/28/2023 Active documented as of this encounter (statuses as of 03/28/2023) Active Problems Problem Noted Date Diagnosed Date URI with cough and congestion 07/18/2022 Type 2 diabetes mellitus with diabetic polyneuro anton 07/18/2021 Acute urinary retention 05/04/2021 Neuropathy 10/26/2020 Gastro-esophageal reflux disease without esophag itis 10/26/2020 Posterior subcapsular polar age-related cataract , bilateral 10/26/2020 Disorder involving the immune mechanism 05/06/19 20 High risk for fracture due to osteoporosis by DE XA scan 05/06/2019 Oscillopsia 07/02/2017 HTN, goal below 140/90 06/27/2015 Overview: Consider change to Labetalol before attempting conception Type 2 diabetes mellitus wit h hemoglobin A1c goal of less than 7.0% 07/20/2014 Overview: ICD-10 update of inactive term 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 Rheum consult suggested, placed. Balance disorder 05/19/2014 Family history of ischemic heart disease 012 Vertigo 10/17/2009 documented as of this encounter (statuses as of 03/28/2023) Resolved Problems Problem Noted Date Diagnosed Date Resolved Date PID (acute pelvic inflammatory disease) 04/10/2021 04/10/2021 Cervical high risk human pap illomavirus (HPV) DNA test positive 07/19/2017 05/06/2019 Overview: Pap negative, 2018. Suggest colpo. IUD (intrauterine device) in place 07/09/2017 04/24/2021 Overview: Yumiko. 2017. 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 CDC/WHO level 3 risk Tobacco use disorder 10/04/2005 012 PRESCRIP-ORAL CONTRACEPT 10/04/2005 documented as of this encounter (statuses as of 03/28/2023) Immunizations Name Administration Dates Next Due COVID-19 mRNA, LNP-s, No Pre serve, 2-Dose Series (TrepUp) 04/26/2021,08/26/2020,08/03/2020 Hepatitis B, 20+ yrs 10/20/2004,05/23/2004,04/22 PPD 05/22/2010 Pneumococcal Conjugate Vacc, 13 Valent (Prevnar) 06/02/2019 Pneumococcal Conjugate Vacci ne, 20-valent ([id number]) 07/03/2022 Pneumococcal Polysaccharide PPV23 (Pneumovax) 10/18/2014 SEASONAL INFLUENZA, PF, 6 M & Above, IM , (FLULAVAL or FLUZONE) 01/01/2023,02/13/2020 Seasonal Influenza, QUAD, wi th Preserv, 6 mons & Above, 0.5 mL, IM 04/10/2022 TDAP (age 10 and older)(Boostrix) 10/26/2020 TDAP (age 11 and older)(Adacel) 05/22/2010 documented as of this encounter Social History Tobacco Use Types Packs/Day Years Used Date Smoking Tobacco: Former Cigarettes 0.5 12 Q uit: 07/28/2010 Smokeless Tobacco: Never Comments:started age 20 Alcohol Use Standard Drinks/Week Comments Yes 0 (1 standard drink = 0.6 oz pur e alcohol) glass wine every month PHQ-2 Answer Date Recorded PHQ Adult Total Score 1 07/03/2022 Hunger Vital Sign Answer Date Recorded Worried About Running Out of Food in the Last Ye ar Never true 07/01/2019 Ran Out of Food in the Last Year Never true 07/01/2019 Sex and Gender Information Value Date Recorded Sex Assigned at Female 09/15/2020 2:43 PM EDT Gender Identity Female 09/15/2020 2:43 PM EDT Sexual Orientation Straight 09/15/2020 2: 43 PM EDT Job Start Date Occupation Industry Not on file Not on file Not on file documented as of this encounter Last Filed Vital Signs Vital Sign Reading Time Taken Comments Blood Pressure 80/44 03/28/2023 9:38 AM EST Pulse 114 03/28/2023 9:38 AM EST Temperature 36.8 C (98.2 F) 03/28/2023 9:38 AM ES T Respiratory Rate 16 03/28/2023 9:38 AM EST Oxygen Saturation 96% 03/28/2023 9:38 AM EST Inhaled Oxygen Concentration - - Weight 78.5 kg (173 lb 1.9 oz) 03/28/2023 9:38 A M EST Height 165.1 cm (5' 5") 03/28/2023 9:38 AM EST Body Mass Index 28.81 03/28/2023 9:38 AM EST documented in this encounter Progress Notes * Alisia Walton PA-C - 03/28/2023 10:16 AM EST Images from the original note were not included. History of Present Illness Tahira Alvarado is a 47 year old female that presents for Emergency Department Follow-Up (Pt started with a fever the Saturday before , went to urgent care-started on doxy, continued to notfeel better-went to ER treated for UTI, this past week fever was 104 at night. Went back to ER and was started back on doxy for anaplasmosis. Temp this morning was 100, pt now c/o nausea, heart is racing, short of breath, weakness.) Patient is a 47 year old female who presents for a follow up from the ER. Has had multiple trips tothe ER with illness. She has been experiencing fever, headache, weakness, fatigue Vegetarian diet. Diabetic Has not been able to eat much Physical Exam Vitals: 03/28/23 0938 Temp: 36.8 C (98.2 F) Pulse: 114 Resp: 16 SpO2: 96% BP: 80/44 BMI: 28.81 BP Readings from Last 3 Encounters: 03/28/23 80/44 03/13/23 106/68 01/01/23 112/78 Wt Readings from Last 3 Encounters: 03/28/23 78.5 kg (173 lb 1.9 oz) 03/13/23 83.6 kg (184 lb 6.4 oz) 01/01/23 84.4 kg (186 lb 2 oz) General: alert, no distress, well nourished, well developed, and cooperative Head: Normocephalic, No masses, lesions, tenderness or abnormalities Eye Exam: PERRLA, extraocular movements intact, conjunctiva are pink and non- injected, sclera clear Ears: External ears normal, Canals clear, TM's Normal Nose: no mucosal erythema, no mucosal edema, no purulent discharge Oropharynx: no exudate, no erythema, lips, buccal mucosa, and tongue normal, and mucous membranes are moist Neck: supple, no adenopathy, no bruits, thyroid normal size, non-tender, without nodularity Heart: regular rate & rhythm, no murmur, and no gallops Lungs: chest symmetric with normal AP diameter, no chest deformities noted, normal respiratory rateand rhythm, no chest wall tenderness, diaphragmatic excursion normal, lungs clear to auscultation Abdomen: abdomen soft, non-tender, normal bowel sounds, no masses or organomegaly, no rebound or guarding, no CVA tenderness, no bladder distention identified, and no bruits Extremities: less than 2 second capillary refill, no joint deformities, effusion, or inflammation, no edema, no skin discoloration, no clubbing, no cyanosis Skin: skin color, texture, turgor are normal, no rashes or significant lesions I have reviewed the following results: CBC and BMP Assessment and Plan Anaplasmosis (Primary) Generalized weakness Fever in other diseases Nausea - Ondansetron HCl 4 MG Oral Tablet; Take 1 Tablet by mouth every 6 hours as needed for Nausea. Dehydration - CBC; Future; Expected date: 03/28/2023 - BASIC METABOLIC PANEL; Future; Expected date: 03/28/2023 - IV HYDRATION, INITIAL, 31 MIN - 1 HR - CBC - BASIC METABOLIC PANEL Type 2 diabetes mellitus with hemoglobin A1c goal of less than 7.0% (HCC) HTN, goal below 140/90 Unable to get IV. Patient refused 2nd attempt at an IV. Discussed diet recommended ensure. Wrap-Up Time: I spent a total of 30-39 minutes (exact time 39 mins) on the date of service in preparation, delivery, and documentation of the care provided to Tahira Alvarado excluding any time spent in the performance of separately billed services. documented in this encounter Nursing Notes * Mago Flores LPN - 03/28/2023 9:38 AM EST The patient has been properly identified by confirmation of name and date of . Chief Complaint Patient presents with Emergency Department Follow-Up Pt started with a fever the Saturday before , went to urgent care- started on doxy, continued to not feel better-went to ER treated for UTI, this past week fever was 104 at night. Went back to ER and was started back on doxy for anaplasmosis. Temp this morning was 100, pt now c/o nausea, heart is racing, short of breath, weakness. documented in this encounter Plan of Treatment Upcoming Encounters Date Type Department Care Team (Late st Contact Info) Description 07/18/2023 4:40 PM EDT Office Visit Family Practice [facility] [address] [place] [address] John Matt, [address] [place] [address] 11/04/2023 4:00 PM EDT Imaging Radiology [facility] [address] [place] [address] Scheduled Orders Name Type Priority Associated Diagnoses Orde r Schedule IV HYDRATION, INITIAL, 31 MIN - 1 HR Procedures Routine Dehydration Ordered: 03/28/2023 Health Maintenance Due Date Last Done Comments HPV/Co-Test 09/15/2007 Cologuard 2022 Colonoscopy 2022 Colorectal Cancer Screening 2022 Fecal Occult Blood Test 2022 Sigmoidoscopy 2022 Cervical Cancer Screening 12/09/2022 Pap Smear 12/09/2022 12/10/2019, 04/23, 07/09/2017, Additional history exists COVID-19 Vaccine ( season) 2022 04/26/2021, 08/26/2020, 08/03/2020 HbA1c 06/29/2023 12/29/2022, 03/0 12/2022, 09/25/2021, Additional history exists Depression Screening 07/04/2023 07/03/2022 Diabetic Foot Exam 07/04/2023 07/03/2022, 0 07/03/2022, 03/31/2020, Additional history exists Diabetic Eye Exam 07/07/2023 07/06/2022, , 03/31/2020, Additional history exists DXA Scan 10/11/2023 10/10/2020, 10/07/2017 Mammogram 11/02/2023 11/01/2022, 02/20, 09/16/2020, Additional history exists Albumin/Creatinine Ratio 12/30/2023 023, 06/28/2022, 10/07/2019, Additional history exists B-12 12/30/2023 12/29/2022, 05/2022, 09/25/2021, Additional history exists GFR 03/28/2024 03/28/2023, 12/2022, 06/28/2022, Additional history exists Lipid Panel 12/30/2027 12/29/2022, 12/2022, 09/25/2021, Additional history exists DTaP,Tdap,and Td Vaccines (8 - Td or Tdap) 10/26/2030 10/26/2020, 05/22/2010, 06/08/2003, Additional history exists Hepatitis B Completed 10/20/2004, 04/2004, 04/22/2004 Pneumococcal Vaccine: Pediatrics (0 to 5 Years) and At-Risk Patients (6 to 64 Years) Completed 07/03/2022, 06/02/2019, 10/18/2014 Influenza Vaccine (FLU shot) Completed 03/2023, 04/10/2022, 02/13/2020 GARDASIL-HPV IMMUNIZATION SERIES Aged Out No longer eligible based on patient's age to complete this topic MENINGOCOCCAL (MENACTRA/MENVEO) Aged Out No longer eligible based on patient's age to complete this topic documented as of this encounter Medical Devices Implanted Type Area Vermin Exterminator Device Identifier Shelf Expiration Date Model / Serial / Lot Screw 4mm Ti Low Pro Sdrill - [id number] Implanted:Qty: 2 on 10/20/2019 by Eriberto Gar MD at [facility] Right: Ear [employer] 10/19/2020 [id number] / / documented as of this encounter Procedures Procedure Name Priority Date/Time Associated Diagnosis Comments BASIC METABOLIC PANEL Routine 03/28/2023 10:51 AM EST Dehydration CBC Routine 03/28/2023 10:51 AM EST Dehydration documented in this encounter Results * (ABNORMAL) BASIC METABOLIC PANEL (03/28/2023 10:51 AM EST) BUN 21(H) 6 - 20 mg/dL 03/28/2023 12:37 PM EST [place] [address] Creatinine 0.8 0.5 - 1.0 mg/dL 03/28/2023 12:37 PM EST [place] [address] Estimated Glomerular Filtration Rate >90 >=60 mL/min 03/28/2023 12:[address] Comment:eGFR is calculated b ased on the CKD-EPI 2020 equation Sodium 133(L) 135 - 146 mmol/L 03/28/2023 12:37 PM [place] [address] Potassium 4.1 3.5 - 5.1 mmol/L 03/28/2023 12:37 PM EST [place] [address] Chloride 99 98 - 107 mmol/L 03/28/2023 12:37 PM [place] [address] CO2 20(L) 22 - 32 mmol/L 03/28/2023 12:37 PM [place] [address] Anion Gap 14 7 - 15 mmol/L 03/28/2023 12:37 PM [place] [address] Glucose 208(H) 70 - 120 mg/dL 03/28/2023 12:37 PM [place] [address] Calcium 8.4 8.4 - 10.2 mg/dL 03/28/2023 12:37 PM [place] [address] Blood Venous blood specimen / Unknown Venipuncture / Unknown 03/28/2023 10:51 AM EST 03/28/2023 10:51 AM EST July Isabelle MARQUEZ LAB BLOOD ORDERABLES [place] [address] [place] [address] * (ABNORMAL) CBC (03/28/2023 10:51 AM EST) WBC 1.13(L) 4.00 - 10.80 K/uL 03/28/2023 11:21 AM EST [place] [address] Comment: Results rechecked. RBC 2.62 3.85 - 5.15 M/uL 03/28/2023 11:[address] HGB 8.4(L) 12.0 - 15.3 g/dL 03/28/2023 11:[address] HCT 26.4(L) 36.0 - 45.2 % 03/28/2023 11:[address] MCV 100.8 81.5 - 97.5 fL 03/28/2023 11:[address] MCH 32.1 27.0 - 34.0 pg 03/28/2023 11:[address] MCHC 31.8 32.0 - 36.0 g/dL 03/28/2023 11:[address] RDW 17.0 11.5 - 15.5 % 03/28/2023 11:[address] PLT 56(L) 140 - 400 K/uL 03/28/2023 11:[address] Comment: Results rechecked. MPV 14.0 6.6 - 11.1 fL 03/28/2023 11:[address] Blood Venous blood specimen / Unknown Venipuncture / Unknown 03/28/2023 10:51 AM EST 03/28/2023 10:51 AM EST July Isabelle MARQUEZ LAB BLOOD ORDERABLES [place] [address] [place] [address] documented in this encounter Visit Diagnoses Diagnosis Anaplasmosis- Primary Other ehrlichiosis Generalized weakness Other malaise and fatigue Fever in other diseases Nausea Nausea alone Dehydration Type 2 diabetes mellitus with hemoglobin A1c goal of less than 7.0% (HCC) HTN, goal below 140/90 Unspecified essential hypertension documented in this encounter Advance Directives Latest Code Status on File Code Status Date Activated Date Inactivated Comments Full Code 10/20/2019 11:18 AM 10/20/2019 9:30 PM This order reflects the patients wishes and were consensually agreed upon. Question Answer Comments Discussion of Advance Directives occurred with: Not Discussed Code Status History Code Status Date Activated Date Inactivated Comments Full Code 04/30/2017 7:55 AM 04/30/2017 1:36 PM This or irish reflects the patients wishes and were consensually agreed upon. Care Teams Central Supply Supervisor Relationship Specialty Start Date End Date John Matt DO [address] [place] [address] PCP - General Family Medicine 05/06/19 documented as of this encounter
--- OUTSIDE RECORDS SUMMARY | 2023-03-31 19:05 | External Medical Summary ---
Author Name Unknown Address Unknown Organization [id number] [place] [address] Laboratory Report Ordering Provider Test Date Status 03/28/2023 10:51:27 Final Observation Date Value Abnormality Reference (Units ) Status WBC, Total 03/28/2023 10:51:27 1.13 Below low normal 4. 00-10.80 (K/uL) Final Results rechecked.
null RBC 03/28/2023 10:51:27 2.62 3.85-5.15 (M/uL) Final Hemoglobin 03/28/2023 10:51:27 8.4 Below low normal 12 .0-15.3 (g/dL) Final HCT 03/28/2023 10:51:27 26.4 Below low normal 36. 0-45.2 (%) Final MCV 03/28/2023 10:51:27 100.8 81.5-97.5 (fL) Final MCH 03/28/2023 10:51:27 32.1 27.0-34.0 (pg) Final MCHC 03/28/2023 10:51:27 31.8 32.0-36.0 (g/dL) Final RDW 03/28/2023 10:51:27 17.0 11.5-15.5 (%) Final Platelets 03/28/2023 10:51:27 56 Below low normal 140 -400 (K/uL) Final Results rechecked.
null MPV 03/28/2023 10:51:27 14.0 6.6-11.1 ( fL) Final Performing Location [facility] [place] [address]
[2023-03-31] MEDS ORDERED: CEFEPIME 2,000 MG/20 ML VIAL IV STA (19:14)
[2023-03-31] MEDS ORDERED: SODIUM CHLORIDE 0.9% 1,000 ML IV SCH ×2 (19:15→21:45)
[2023-03-31] MEDS ORDERED: ACETAMINOPHEN 1,000 MG/100 ML VIAL IV STA (19:28)
--- NOTE | 2023-03-31 19:35 | Emergency Department Note ---
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 She is still on doxycycline. She thought for a while her fever was improving and her symptoms were improving but then in the last 2 days, things seemed to be worsening. She feels dehydrated, she has no appetite. She has lost weight. She now has a fever again. Today, she had rigors and was flushed. She presents for evaluation. The patient has no urinary complaints. There has been no diarrhea. She does admit to some nausea with occasional vomiting and she believes this is from her doxycycline. No sore throat, no cough or congestion. She does admit to some mild shortness of breath this evening. PMHx/PSHx/Social Hx: See Below PHYSICAL EXAM: GENERAL: Patient is in no acute distress. HEENT: No acute trauma, normocephalic atraumatic, mucous membranes dry, no nasal congestion. Face is flushed. NECK: No stridor, no adenopathy, no meningismus, trachea is midline. LUNGS: Clear to auscultation bilaterally, no wheeze, no rhonchi, breath sounds equal. HEART: Tachycardic, regular rhythm, no murmurs. ABDOMEN: Soft, nontender, no peritonitis. EXTREMITIES: No cyanosis, full range of motion of all the joints without pain or difficulty. NEUROLOGIC: Oriented x 3, no acute motor or sensory deficits, no focal weakness. SKIN: No jaundice, no diaphoresis. DIFFERENTIAL DIAGNOSIS: Sepsis or bacteremia, tickborne illness, UTI, viral illness, dehydration, electrolyte imbalance, failed outpatient management, among others. EMERGENCY DEPARTMENT PROCEDURES: MEDICAL DECISION MAKING: There is a neutropenia noted with a white count of 0.26. Hemoglobin is low at 6.7. Platelet count is quite low at 17. No renal failure. Lactic acid level is elevated at over 4 consistent with infection/sepsis. Magnesium is slightly low. Liver enzyme elevations were noted. ECG showed a sinus tachycardia, no ischemia. Cardiac enzyme testing x 1 was not consistent with acute cardiac injury. Procalcitonin level was elevated consistent with bacterial infection. Respiratory bio fire was completely negative. Lyme disease testing was equivocally positive with IgM positive findings and IgG negative findings. Babesia and anaplasmosis smears were both negative. Send out reference testing is pending. Ehrlichiosis send out testing is pending. Chest x-ray did not show mediastinal widening, pneumonia or pneumothorax. [place] testing returned negative. On exam, the patient was tachycardic and febrile. Her blood pressure was borderline low. The patient does meet criteria for sepsis. Given her laboratory findings, I was concerned with tickborne illness, in particular, Babesia infection. The patient received 2.5 L of IV saline, this was coverage for 30 cc/kg of fluid hydration given her actual body weight. She was initially to receive IV cefepime as empiric coverage but, developed itching and what appeared to be an allergic reaction to the cefepime. This medication was halted and she received 25 mg of IV Benadryl. The Benadryl did seem to cause resolution of symptoms. Patient was ordered for IV Zithromax as this is coverage for babesiosis. She received IV Tylenol. The patient is in need of a hospital stay. She does meet criteria for sepsis. She will likely require a red blood cell transfusion, I suspect she will benefit from an ID consult while here in the hospital. Tickborne disease does seem a very likely possibility and again, I am concerned about babesiosis. Patient has done well in the ED with treatment. She does not appear toxic to me by exam. She is not hypoxic. I did speak with the patient at length, I spoke with her family. I spoke with case management, the on-call hospitalist was consulted. Prior/Outside records/notes reviewed: Family practice note from 03/21/2023 discussing her fever and anaplasmosis and the plan moving forward. ECG per my interpretation: Indication was tachycardia. The ECG shows a sinus tachycardia with a rate of 134. There is no ST elevation, no PVCs. There is some diffuse nonspecific ST change. The QTc is 412. Continuous Cardiac Monitoring per my interpretation: An order was placed for continuous cardiac monitoring. The monitor shows a rate of 126 with sinus tachycardia. Imaging/x-ray results per my interpretation: Chest x-ray does not show mediastinal widening, pneumonia or pneumothorax. Chronic Medical/Social conditions affecting care: Significant hearing loss Care/Management discussed with: Case management, the on-call hospitalist. Level of care consideration(s): After review of the information above and other included data: --I believe the patient requires escalation of care to admission Critical Care Note: I have personally spent 47 minutes of critical care time in the direct management of this patient. This includes bedside care, interpretation of diagnostic studies, and testing, discussion with consultants, patient, and family members, and other required patient management activities. This 47 minutes is in excess of all separately billable procedures. DISPOSITION: Admission Past Med/Surg History Medical History Finger amputation, traumatic Failure of outpatient treatment Vaginal discharge Dysuria Tachycardia Fever UTI (urinary tract infection) IUD (intrauterine device) in place Chronic steroid use Diabetes Hearing loss Surgical History History of cochlear implant Uses cochlear implant No pertinent family history 2 left Wrist surgery H/O sinus surgery Family History Other Alcoholism Arthritis Bipolar 1 disorder Cataract Diabetes 1.5, managed as type 2 Glaucoma Heart disease Hyperlipemia Hypertension No pertinent family history Testicular cancer Social History Smoking Status: Former smoker Tobacco Type: Cigarettes Second Hand Exposure: No; Do You Dip or Chew Tobacco: No; Hx Alcohol Use: No Hx Substance Use: No Preferred Language: Greek Communication Ability: Effective Visual Impairment: No Limitations Hearing Ability: Hard of Hearing Prorate Clerk Required: No Beliefs That Will Affect Care: None Current Living Situation: Alone and Spouse Current Living Situation Comment: Lives at home alone/sig other Other Information That Helps Us Care for You: No Feels Safe at Home: Yes Safety Concerns: Feels Safe At This Time Assistive Devices: None Allergies Allergies Allergy/AdvReac Type Severity Reaction Status Date / Time clindamycin Allergy Intermediate Hives Verified 03/21/23 10:41 morphine Allergy Intermediate HIVES Verified 03/21/23 10:41 Penicillins Allergy Intermediate HIGH FEVER Verified 03/21/23 10:41 AND HIVES Sulfa (Sulfonamide Allergy Intermediate HIVES Verified 03/21/23 10:41 Antibiotics) Home Meds Home Medications Medication Instructions Recorded Confirmed azathioprine 50 mg tablet 100 mg PO BID 07/19/18 03/31/23 ibuprofen 200 mg tablet 600 mg PO QID PRN Pain 07/19/18 03/31/23 omeprazole 20 mg capsule,delayed 20 mg PO QAM 07/19/18 03/31/23 release cholecalciferol (vitamin D3) 25 1,000 unit PO QAM 08/29/18 03/31/23 mcg (1,000 unit) capsule (Vitamin D3) prednisone 5 mg tablet 7.5 mg PO QAM 08/29/18 03/31/23 acetaminophen 500 mg tablet 1,000 mg PO DIRECTED PRN 03/25/21 03/31/23 Fever/PAIN cyanocobalamin (vitamin B-12) 1,000 mcg PO DAILY 03/20/23 03/31/23 1,000 mcg tablet (Vitamin B-12) ferrous sulfate 325 mg (65 mg 325 mg PO DAILY 03/20/23 03/31/23 iron) tablet (iron) lisinopril 20 mg tablet 20 mg PO QAM 03/20/23 03/31/23 semaglutide 1 mg/dose (4 mg/3 mL) 1 mg subcut WK 03/20/23 03/31/23 subcutaneous pen injector (Ozempic) valacyclovir 500 mg tablet 500 mg PO QPM 03/20/23 03/31/23 ondansetron HCl 4 mg tablet 4 mg PO Q6 PRN Nausea 03/31/23 03/31/23 Previous Rx's Medication Instructions Recorded doxycycline hyclate 100 mg tablet 100 mg PO Q12H 14 days #28 tabs 03/20/23 Results & Data (ED) Vital Signs Vital Signs - 24 hr 03/31/23 19:08 03/31/23 19:08 03/31/23 19:15 Temperature 38.1 C H Temperature Source Oral Pulse Rate 126 H 133 H Pulse Rate [Apical] 126 H Pulse Rate from SpO2 Sensor Respiratory Rate 20 20 Respiratory Effort / Characteristics Non-Labored Spontaneous Non-Labored Spontaneous Respiratory Depth Normal Normal Blood Pressure 104/64 Blood Pressure [Right Arm] 104/64 Blood Pressure Mean 77 Blood Pressure Mean [Right Arm] 77 Blood Pressure Position Lying Blood Pressure Position [Right Arm] Lying Pulse Oximetry 94 94 Oxygen Delivery Method Room Air Room Air Sepsis Recent Fever Within 48 Hours Yes Sepsis New/Unexplained Change in Mental Status N/A Sepsis Action Taken by Nursing Physician Notified 03/31/23 19:16 03/31/23 19:30 03/31/23 19:48 Temperature Temperature Source Pulse Rate 133 H 135 H Pulse Rate [Apical] Pulse Rate from SpO2 Sensor 133 H 134 H Respiratory Rate 17 17 Respiratory Effort / Characteristics Respiratory Depth Blood Pressure 92/43 L Blood Pressure [Right Arm] Blood Pressure Mean 60 Blood Pressure Mean [Right Arm] Blood Pressure Position Blood Pressure Position [Right Arm] Pulse Oximetry 96 95 Oxygen Delivery Method Sepsis Recent Fever Within 48 Hours Sepsis New/Unexplained Change in Mental Status Sepsis Action Taken by Nursing 03/31/23 19:48 03/31/23 20:00 03/31/23 20:00 Temperature Temperature Source Pulse Rate 138 H 134 H Pulse Rate [Apical] Pulse Rate from SpO2 Sensor 137 H 134 H Respiratory Rate 19 22 Respiratory Effort / Characteristics Respiratory Depth Blood Pressure 88/48 L Blood Pressure [Right Arm] Blood Pressure Mean 60 Blood Pressure Mean [Right Arm] Blood Pressure Position Blood Pressure Position [Right Arm] Pulse Oximetry 95 93 Oxygen Delivery Method Sepsis Recent Fever Within 48 Hours Sepsis New/Unexplained Change in Mental Status Sepsis Action Taken by Nursing 03/31/23 20:30 03/31/23 20:30 03/31/23 21:00 Temperature Temperature Source Pulse Rate 123 H Pulse Rate [Apical] Pulse Rate from SpO2 Sensor 123 H Respiratory Rate 17 Respiratory Effort / Characteristics Respiratory Depth Blood Pressure 99/56 L 83/46 L Blood Pressure [Right Arm] Blood Pressure Mean 94 69 Blood Pressure Mean [Right Arm] Blood Pressure Position Blood Pressure Position [Right Arm] Pulse Oximetry 95 Oxygen Delivery Method Sepsis Recent Fever Within 48 Hours Sepsis New/Unexplained Change in Mental Status Sepsis Action Taken by Nursing 03/31/23 21:00 03/31/23 21:11 03/31/23 21:11 Temperature Temperature Source Pulse Rate 116 H 113 H Pulse Rate [Apical] Pulse Rate from SpO2 Sensor 114 H Respiratory Rate 21 18 Respiratory Effort / Characteristics Respiratory Depth Blood Pressure 101/52 L Blood Pressure [Right Arm] Blood Pressure Mean 67 Blood Pressure Mean [Right Arm] Blood Pressure Position Blood Pressure Position [Right Arm] Pulse Oximetry 94 Oxygen Delivery Method Sepsis Recent Fever Within 48 Hours Sepsis New/Unexplained Change in Mental Status Sepsis Action Taken by Nursing 03/31/23 21:30 03/31/23 21:30 Temperature Temperature Source Pulse Rate 115 H Pulse Rate [Apical] Pulse Rate from SpO2 Sensor 115 H Respiratory Rate 17 Respiratory Effort / Characteristics Respiratory Depth Blood Pressure 85/49 L Blood Pressure [Right Arm] Blood Pressure Mean 66 Blood Pressure Mean [Right Arm] Blood Pressure Position Blood Pressure Position [Right Arm] Pulse Oximetry 93 Oxygen Delivery Method Sepsis Recent Fever Within 48 Hours Sepsis New/Unexplained Change in Mental Status Sepsis Action Taken by Group Home Medications Current Medication List: was personally reviewed by me Laboratory Data Attestation: I reviewed the patient's lab results. 03/31/23 19:19 03/31/23 19:19 Lab Results 03/31/23 03/31/23 03/31/23 Range/Units 19:19 20:58 21:08 WBC 0.26 L* (4.8-10.8) K/ul RBC 2.14 L (4.20-5.40) M/uL Hgb 6.7 L* (12.0-16.0) g/dl Hct 20.7 L* (37.0-47.0) % MCV 96.7 (80.0-100.0) fL MCH 31.3 (25.0-34.0) pg MCHC 32.4 (32.0-36.0) g/dL RDW Std Deviation 59.6 H (36.4-46.3) fL RDW Coeff of Don 16.7 H (11.5-14.5) % Plt Count 17 L* (130-400) K/uL MPV 13.4 H (9.4-12.4) fL Immature Gran % (Auto) Cancelled Neut % (Auto) Cancelled Lymph % (Auto) Cancelled [place] % (Auto) Cancelled Eos % (Auto) Cancelled Baso % (Auto) Cancelled Neut # (Auto) Cancelled Lymph # (Auto) Cancelled [place] # (Auto) Cancelled Eos # (Auto) Cancelled Baso # (Auto) Cancelled Immature Gran # (Auto) Cancelled Neutrophils % (Manual) Cancelled Band Neutrophils % Cancelled Lymphocytes % (Manual) Cancelled Prolymphocyte % Cancelled Reactive Lymphs % (Man) Cancelled Monocytes % (Manual) Cancelled Eosinophils % (Manual) Cancelled Basophils % (Manual) Cancelled Metamyelocytes % (Man) Cancelled Myelocytes % (Man) Cancelled Promyelocytes % (Man) Cancelled Blast Cells % (Manual) Cancelled Plasma Cell % (Manual) Cancelled Other Cells % Cancelled Nucleated RBC % Cancelled Neutrophils # (Manual) Cancelled Band Neutrophils # Cancelled Total Absolute Neuts Cancelled Lymphocytes # (Manual) Cancelled Prolymphocyte # Cancelled Reactive Lymphs # Cancelled Total Abs Lymphocytes Cancelled Monocytes # (Manual) Cancelled Eosinophils # (Manual) Cancelled Basophils # (Manual) Cancelled Metamyelocytes # (Man) Cancelled Myelocytes # (Manual) Cancelled Promyelocytes # (Man) Cancelled Blast Cells # (Man) Cancelled Plasma Cell # (Manual) Cancelled Other Cells # Cancelled Nucleated RBCs # (Man) Cancelled Hypersegmented Neuts Cancelled Hyposegmented Neuts Cancelled Hypogranular Neuts Cancelled Large Granular Lymphs Cancelled # Lrg Granular Lymphs Cancelled Hairy Cells Cancelled Smudge Cells Cancelled Toxic Granulation Cancelled Toxic Vacuolation Cancelled Dohle Bodies Cancelled Bubba Rods Cancelled Platelet Estimate Signific. Decreased L (Normal) Hypogranular Platelets Cancelled Giant Platelets Cancelled Platelet Satelliting Cancelled RBC Morphology Cancelled Polychromasia Cancelled Hypochromasia Cancelled Poikilocytosis Cancelled Basophilic Stippling Cancelled Anisocytosis Cancelled Microcytosis Cancelled Macrocytosis Cancelled Spherocytes Cancelled Pappenheimer Bodies Cancelled Sickle Cells Cancelled Target Cells Cancelled Tear Drop Cells Cancelled Ovalocytes Cancelled Stomatocytes Cancelled [place] Bodies Cancelled Echinocytes Cancelled Acanthocytes (Spur) Cancelled Rouleaux Cancelled RBC Agglutinates Cancelled Schistocytes Cancelled [place] Cell Cancelled Sodium 135 L (136-145) mmol/L Potassium 4.3 (3.5-5.1) mmol/L Chloride 108 H (98-107) mmol/L Carbon Dioxide 17 L (21-32) mmol/L Anion Gap 10 (3-11) BUN 24 H (6-23) mg/dl Creatinine 0.71 (0.6-1.2) mg/dl Est Cr Clr Drug Dosing 104.1 ml/min Est GFR ( Amer) 119.2 ml/min Est GFR (Non-Af Amer) 102.9 ml/min BUN/Creatinine Ratio 33.8 H (10-20) Glucose 132 H (70-99(Fasting)) mg/dl Lactate 4.2 H* 2.8 H* (0.4-2.0) mmol/L Calcium 7.8 L (8.6-10.3) mg/dl Magnesium 1.6 L (1.7-2.4) mg/dl Total Bilirubin 2.0 H (0.2-1.0) mg/dl Direct Bilirubin 1.2 H (0-0.2) mg/dl AST 97 H (13-39) U/L ALT 33 (7-52) U/L Alkaline Phosphatase 202 H (34-104) U/L Lactate Dehydrogenase 343 H (86-244) U/L Troponin I High Sens 10.2 (0-14) pg/ml Total Protein 4.5 L (6.0-8.3) gm/dl Albumin 2.1 L (3.4-5.0) gm/dl Procalcitonin 1.01 H (0-0.5) ng/ml Random Cortisol 5.42 mcg/dl Adenovirus (PCR) Not Detected (NotDetected) Anaplasma Smear See Comment Babesia Smear See Comment B. pertussis DNA (PCR) Not Detected (NotDetected) B.parapertussis DNA PCR Not Detected (NotDetected) Lyme Disease IgG Ab Negative (Negative) Lyme Disease IgM Ab Positive A (Negative) C. pneumoniae DNA (PCR) Not Detected (NotDetected) Coronavirus OC43 (PCR) Not Detected (NotDetected) Coronavirus HKU1 (PCR) Not Detected (NotDetected) Coronavirus 229E (PCR) Not Detected (NotDetected) SARS-CoV-2 (PCR) Not Detected (NotDetected) Coronavirus NL63 (PCR) Not Detected (NotDetected) Monoscreen Negative (Negative) Human Metapneumovir PCR Not Detected (NotDetected) Influenza Type A (PCR) Not Detected (NotDetected) Influenza Type B (PCR) Not Detected (NotDetected) M. pneumoniae (PCR) Not Detected (NotDetected) Parainfluenza 1 (PCR) Not Detected (NotDetected) Parainfluenza 2 (PCR) Not Detected (NotDetected) Parainfluenza 3 (PCR) Not Detected (NotDetected) Parainfluenza 4 (PCR) Not Detected (NotDetected) RSV (PCR) Not Detected (NotDetected) Entero/Rhino (PCR) Not Detected (NotDetected) Blood Parasites ID Cancelled Blood Type Antibody Screen Crossmatch 03/31/23 Range/Units 21:09 WBC (4.8-10.8) K/ul RBC (4.20-5.40) M/uL Hgb (12.0-16.0) g/dl Hct (37.0-47.0) % MCV (80.0-100.0) fL MCH (25.0-34.0) pg MCHC (32.0-36.0) g/dL RDW Std Deviation (36.4-46.3) fL RDW Coeff of Don (11.5-14.5) % Plt Count (130-400) K/uL MPV (9.4-12.4) fL Immature Gran % (Auto) Neut % (Auto) Lymph % (Auto) [place] % (Auto) Eos % (Auto) Baso % (Auto) Neut # (Auto) Lymph # (Auto) [place] # (Auto) Eos # (Auto) Baso # (Auto) Immature Gran # (Auto) Neutrophils % (Manual) Band Neutrophils % Lymphocytes % (Manual) Prolymphocyte % Reactive Lymphs % (Man) Monocytes % (Manual) Eosinophils % (Manual) Basophils % (Manual) Metamyelocytes % (Man) Myelocytes % (Man) Promyelocytes % (Man) Blast Cells % (Manual) Plasma Cell % (Manual) Other Cells % Nucleated RBC % Neutrophils # (Manual) Band Neutrophils # Total Absolute Neuts Lymphocytes # (Manual) Prolymphocyte # Reactive Lymphs # Total Abs Lymphocytes Monocytes # (Manual) Eosinophils # (Manual) Basophils # (Manual) Metamyelocytes # (Man) Myelocytes # (Manual) Promyelocytes # (Man) Blast Cells # (Man) Plasma Cell # (Manual) Other Cells # Nucleated RBCs # (Man) Hypersegmented Neuts Hyposegmented Neuts Hypogranular Neuts Large Granular Lymphs # Lrg Granular Lymphs Hairy Cells Smudge Cells Toxic Granulation Toxic Vacuolation Dohle Bodies Bubba Rods Platelet Estimate (Normal) Hypogranular Platelets Giant Platelets Platelet Satelliting RBC Morphology Polychromasia Hypochromasia Poikilocytosis Basophilic Stippling Anisocytosis Microcytosis Macrocytosis Spherocytes Pappenheimer Bodies Sickle Cells Target Cells Tear Drop Cells Ovalocytes Stomatocytes [place] Bodies Echinocytes Acanthocytes (Spur) Rouleaux RBC Agglutinates Schistocytes [place] Cell Sodium (136-145) mmol/L Potassium (3.5-5.1) mmol/L Chloride (98-107) mmol/L Carbon Dioxide (21-32) mmol/L Anion Gap (3-11) BUN (6-23) mg/dl Creatinine (0.6-1.2) mg/dl Est Cr Clr Drug Dosing ml/min Est GFR ( Amer) ml/min Est GFR (Non-Af Amer) ml/min BUN/Creatinine Ratio (10-20) Glucose (70-99(Fasting)) mg/dl Lactate (0.4-2.0) mmol/L Calcium (8.6-10.3) mg/dl Magnesium (1.7-2.4) mg/dl Total Bilirubin (0.2-1.0) mg/dl Direct Bilirubin (0-0.2) mg/dl AST (13-39) U/L ALT (7-52) U/L Alkaline Phosphatase (34-104) U/L Lactate Dehydrogenase (86-244) U/L Troponin I High Sens (0-14) pg/ml Total Protein (6.0-8.3) gm/dl Albumin (3.4-5.0) gm/dl Procalcitonin (0-0.5) ng/ml Random Cortisol mcg/dl Adenovirus (PCR) (NotDetected) Anaplasma Smear Babesia Smear B. pertussis DNA (PCR) (NotDetected) B.parapertussis DNA PCR (NotDetected) Lyme Disease IgG Ab (Negative) Lyme Disease IgM Ab (Negative) C. pneumoniae DNA (PCR) (NotDetected) Coronavirus OC43 (PCR) (NotDetected) Coronavirus HKU1 (PCR) (NotDetected) Coronavirus 229E (PCR) (NotDetected) SARS-CoV-2 (PCR) (NotDetected) Coronavirus NL63 (PCR) (NotDetected) Monoscreen (Negative) Human Metapneumovir PCR (NotDetected) Influenza Type A (PCR) (NotDetected) Influenza Type B (PCR) (NotDetected) M. pneumoniae (PCR) (NotDetected) Parainfluenza 1 (PCR) (NotDetected) Parainfluenza 2 (PCR) (NotDetected) Parainfluenza 3 (PCR) (NotDetected) Parainfluenza 4 (PCR) (NotDetected) RSV (PCR) (NotDetected) Entero/Rhino (PCR) (NotDetected) Blood Parasites ID Blood Type A Positive Antibody Screen NEGATIVE Crossmatch See Detail Administered Medications Magnesium Sulfate/Dextrose (Magnesium Sulfate / D5w) 1 gm in 100 mls @ 50 mls/hr IV Q2H KATHY Stop: 04/01/23 01:29 Last Admin: 03/31/23 23:41 Dose: 50 mls/hr Documented By: CANDICE Discontinued Medications Atovaquone (Atovaquone 750 Mg/5 Ml Udc) 750 mg PO ONE STA Stop: 03/31/23 22:00 Last Admin: 03/31/23 23:51 Dose: 750 mg Documented By: CANDICE Diphenhydramine HCl (Diphenhydramine 50 Mg/Ml Vial) Confirm Administered Dose 50 mg .ROUTE .STK-MED ONE Stop: 03/31/23 19:52 Last Admin: 03/31/23 21:34 Dose: Not Given Documented By: ROLANDA Diphenhydramine HCl (Diphenhydramine 50 Mg/Ml Vial) 25 mg IV NOW STA Stop: 03/31/23 20:00 Last Admin: 03/31/23 20:11 Dose: 25 mg Documented By: ROLANDA Sodium Chloride (Nss) 1,000 mls @ 999 mls/hr IV .Q1H1M KATHY Stop: 03/31/23 20:15 Last Infusion: 03/31/23 22:25 Dose: Infused Documented By: Admin: 03/31/23 19:36 Dose: 999 mls/hr Documented By: ROLANDA Cefepime HCl (Maxipime) 2,000 mg in 20 mls @ 5 mls/min IV NOW STA; Protocol Stop: 03/31/23 19:17 Last Admin: 03/31/23 19:44 Dose: 5 mls/min Documented By: ROLANDA Acetaminophen (Ofirmev) 1,000 mg in 100 mls @ 400 mls/hr IV NOW STA Stop: 03/31/23 19:42 Last Infusion: 03/31/23 20:47 Dose: Infused Documented By: Admin: 03/31/23 19:33 Dose: 400 mls/hr Documented By: ROLANDA Lactated Ringer's (Lr) 1,000 mls @ 999 mls/hr IV .Q1H1M ONE Stop: 03/31/23 20:41 Last Infusion: 03/31/23 22:25 Dose: Infused Documented By: Admin: 03/31/23 20:44 Dose: 999 mls/hr Documented By: MICHEAL Levofloxacin/Dextrose (Levaquin/D5w) 750 mg in 150 mls @ 100 mls/hr IV NOW STA; Protocol Stop: 03/31/23 21:25 Last Admin: 03/31/23 21:35 Dose: Not Given Documented By: ROLANDA Sodium Chloride (Nss) 500 mls @ 999 mls/hr IV .Q31M ONE Stop: 03/31/23 20:28 Last Infusion: 03/31/23 22:25 Dose: Infused Documented By: Admin: 03/31/23 20:44 Dose: 999 mls/hr Documented By: MICHEAL Azithromycin 500 mg/ Dextrose 255 mls @ 125 mls/hr IV ONE ONE Stop: 03/31/23 22:12 Last Admin: 03/31/23 23:51 Dose: 125 mls/hr Documented By: CANDICE Sodium Chloride (Nss) 1,000 mls @ 999 mls/hr IV .Q1H1M KATHY Stop: 03/31/23 22:45 Last Admin: 03/31/23 23:50 Dose: Not Given Documented By: CANDICE Non-Formulary Medication (Doxycycline Hyclate) 100 mg PO Q12H [facility] Stop: 04/30/23 23:29 Last Admin: 03/31/23 23:57 Dose: Not Given Documented By: CANDICE Imaging Data Radiologist's Impression: Abdomen/Pelvis CT 03/31/23 21:34 Exam(s): CT ABDOMEN + PELVIS Without Contrast EXAM: CT Abdomen and Pelvis Without Intravenous Contrast CLINICAL HISTORY: Reason for exam: elevated lfts. sepsis. TECHNIQUE: Axial computed tomography images of the abdomen and pelvis without intravenous contrast. CTDI is 45.81 mGy and DLP is 1928.24 mGy-cm. Automated exposure control was utilized for the study. A dose lowering technique was utilized adhering to the principles of ALARA. COMPARISON: CT abdomen pelvis March 18, 2023 FINDINGS: Lung bases: Unremarkable. No mass. No consolidation. ABDOMEN: Liver: Unremarkable. Gallbladder and bile ducts: Unremarkable. No calcified stones. No ductal dilation. Pancreas: Unremarkable. No ductal dilation. Spleen: Splenomegaly measuring up to 19.7 cm. This has increased when compared to CT scan from March 18, 2023. Correlate for etiology (correlate for lymphoma or mononucleosis). Indeterminate, peripherally calcified lesion in the spleen measures 5.0 x 4.7 cm. Stable when compared to March 18, 2023. Adrenals: Unremarkable. No mass. Kidneys and ureters: Unremarkable. No obstructing stones. No hydronephrosis. Stomach and bowel: Diverticulosis, without acute diverticulitis. No small bowel obstruction. PELVIS: Appendix: No findings to suggest acute appendicitis. Bladder: Unremarkable. No stones. Reproductive: IUD in the uterus. Calcified uterine fibroid measures 1. 8 cm. ABDOMEN and PELVIS: Intraperitoneal space: Unremarkable. No free air. No significant fluid collection. Bones/joints: No acute fracture. No dislocation. Soft tissues: Unremarkable. Vasculature: Unremarkable. No abdominal aortic aneurysm. Lymph nodes: Unremarkable. No enlarged lymph nodes. IMPRESSION: 1. Splenomegaly measuring up to 19.7 cm. This has increased when compared to CT scan from March 18, 2023. Correlate for etiology (correlate for lymphoma or mononucleosis). 2. Indeterminate, peripherally calcified lesion in the spleen measures 5. 0 x 4.7 cm. Stable when compared to March 18, 2023. 3. IUD in the uterus. 4. Diverticulosis, without acute diverticulitis. No small bowel obstruction. 5. No CT evidence of hepatic cirrhosis. Electronically signed by: Karthikeyan Barron MD 03/31/23 23:14 PM Discharge Plan Visit Data Chief Complaint: Illness Stated Complaint: ILLNESS, FEVER ED Provider: Manjinder Garay Discharge Problem: Sepsis, Leukopenia, Anemia, Thrombocytopenia, Elevated liver enzymes, Elevated lactic acid level, Failure of outpatient treatment Patient Disposition: Admitted As Inpatient Condition: Serious Discharge Instructions Interventions: ED Discharge Assessment Last Done: 03/31/23 23:12 Discharge Problem: Sepsis Qualifiers: Sepsis type: sepsis due to unspecified organism Sepsis acute organ dysfunction status: unspecified Qualified Code(s): A41.9 - Sepsis, unspecified organism Leukopenia Qualifiers: Leukopenia type: neutropenia Neutropenia type: due to infection Qualified Code(s): D70.3 - Neutropenia due to infection Anemia Qualifiers: Anemia type: unspecified type Qualified Code(s): D64.9 - Anemia, unspecified
[2023-03-31] MEDS ORDERED: LACTATED RINGER'S 1,000 ML IV ONE (19:41)
[2023-03-31] MEDS ORDERED: diphenhydrAMINE 50 MG/ML VIAL ONE (19:51)
[2023-03-31 19:53] LABS: Albumin Level 2.1 gm/dl (3.4-5.0); BUN Creatinine Ratio 33.8 (10-20); Bilirubin Direct 1.2 mg/dl (0-0.2); Calcium 7.8 mg/dl (8.6-10.3); Creatinine Clr Calc Pharmacy 104.1 ml/min; Est GFR (African American) 119.2 ml/min; Est GFR (Non-African American) 102.9 ml/min; Magnesium 1.6 mg/dl (1.7-2.4); Potassium 4.3 mmol/L (3.5-5.1); Total Protein 4.5 gm/dl (6.0-8.3)
[2023-03-31] MEDS ORDERED: levoFLOXacin/D5W 750 MG/150 ML BAG IV STA (19:56)
[2023-03-31] MEDS ORDERED: SODIUM CHLORIDE 0.9% 500 ML IV ONE (19:58)
[2023-03-31 19:59] LABS: Troponin I High Sensitivity 10.2 pg/ml (0-14)
[2023-03-31] MEDS ORDERED: diphenhydrAMINE 50 MG/ML VIAL IV STA (19:59)
[2023-03-31 20:01] LABS: Hematocrit (blood only) 20.7 % (37.0-47.0); Hemoglobin 6.7 g/dl (12.0-16.0); Mean Corpuscular Hemoglobin 31.3 pg (25.0-34.0); Mean Corpuscular Hgb Conc 32.4 g/dL (32.0-36.0); Mean Corpuscular Volume 96.7 fL (80.0-100.0); RDW Coefficient of Variation 16.7 % (11.5-14.5); RDW Standard Deviation 59.6 fL (36.4-46.3); Red Blood Count 2.14 M/uL (4.20-5.40); White Blood Count 0.26 K/ul (4.8-10.8)
[2023-03-31 20:09] LABS: Procalcitonin 1.01 ng/ml (0-0.5)
[2023-03-31] MEDS ORDERED: AZITHROMYCIN 500 MG in DEXTROSE 5% 250 ML IV ONE (20:10)
[2023-03-31 20:14] LABS: Mean Platelet Volume 13.4 fL (9.4-12.4); Platelet Count 17 K/uL (130-400)
[2023-03-31 20:16] LABS: Lyme Ab IgG w/WB Rflx Negative (Negative)
[2023-03-31 20:32] LABS: Lyme Ab IgM w/WB Rflx Positive (Negative)
[2023-03-31 20:37] LABS: Platelet Estimate Signific. Decreased (Normal)
[2023-03-31] MEDS ORDERED: SODIUM CHLORIDE 0.9% 250 ML IV PRN (21:44)
[2023-03-31] MEDS ORDERED: ATOVAQUONE 750 MG/5 ML UDC PO STA (21:59)
[2023-03-31 22:01] LABS: Adenovirus PCR Not Detected (NotDetected); Bordetella parapertussis PCR Not Detected (NotDetected); Bordetella pertussis PCR Not Detected (NotDetected); Chlamydia pneumoniae PCR Not Detected (NotDetected); Coronavirus 229E PCR Not Detected (NotDetected); Coronavirus CoV-2 (COVID19)PCR Not Detected (NotDetected); Coronavirus HKU1 PCR Not Detected (NotDetected); Coronavirus NL63 PCR Not Detected (NotDetected); Coronavirus OC43PCR Not Detected (NotDetected); Human Metapneumovirus PCR Not Detected (NotDetected); Influenza A PCR Not Detected (NotDetected); Influenza B PCR Not Detected (NotDetected); Mycoplasma pneumoniae PCR Not Detected (NotDetected); Parainfluenza Virus 1 PCR Not Detected (NotDetected); Parainfluenza Virus 2 PCR Not Detected (NotDetected); Parainfluenza Virus 3 PCR Not Detected (NotDetected); Parainfluenza Virus 4 PCR Not Detected (NotDetected); Respiratory Syncytial VirusPCR Not Detected (NotDetected); Rhinovirus/Enterovirus PCR Not Detected (NotDetected)
--- NOTE | 2023-03-31 22:22 | Critical Care Consultation ---
Date of Consultation March 31, 2023 Assessment & Plan (1) Pancytopenia: (2) Septic shock: (3) Tick-borne disease: (4) Diabetes: (5) Hearing loss: (6) Spleen enlarged: (7) Electrolyte abnormality: (8) Metabolic acidosis: Plan Reason Critically Ill: 47 YOF with persistent fevers for 2.5 weeks on doxycycline for ~10 days. Comes to the EMD meeting SIRS criteria with elevated lactate and acute pancytopenia. Admitted to ICU for monitoring of organ dysfunction continued resuscitation work up for her pancytopenia and enlarged spleen in this chronically immunosuppressed patient . DDX at this time is broad to consider- tick borne illness; HLH from tick borne, parasitic illness, bacterial illness, or blood line cancer or any combination of the above Neuro - No acute needs CAM ICU: NEGATIVE - Patient reports headache has improved, she is without meningismus signs and is without nausea/vomiting nor is she encephalopathic - at this time defer further imaging while awaiting peripheral smear and culture data - pending the above LP may be warranted Cardiac - Septic shock, HTN - Patient with SIRS criteria and source at this time suspected some tick borne disease see below heme onc/ID section - Has received 2.5 liters of crystalloid in EMD with decrease in lactate level- she will also receive unit of PRBC for symptomatic anemia - follow MAPS and UO - Vasopressors if needed - Follow clinical course as needed - She is with random cortisol of 5.42- would expect this to be higher under stress- will currently hold on stress dose steroids until clinical picture becomes more clear - if requiring multiple pressors, will add stress dose steroids. Respiratory - No acute needs - She is without cough, or sputum production - respiratory biofire is negative for testable viruses - CT chest without notable lymphadenopathy or opacification GI - Fatty liver on CT, elevated AST - She is currently not jaundiced and is without icterus - Regular diet - check Tylenol and salicylate level with frequent ingestion over the past 2.5 weeksf - does not appear to have an underlying gallbladder disease RENAL/LYTES - Metabolic acidosis, multiple electrolyte disturbances - non anion gap acidosis- likely secondary to volume status with elevated fevers- follow as above check Tylenol and salicylate levels - replete electrolytes - no acute needs - awaiting urine ENDO - DMII - ICU hyperglycemic protocol goal <180mg/dl HEME - Pancytopenia, Spleenomegally - Acute onset of pancytopenia within the past 10 days - DDX at this time is broad to consider- tick borne illness, parasytic illness, bacterial illness, HLH from tick borne, or blood line cancer or any combination of the above - Await peripheral smear in morning continue treatment for Babesia and REAGAN/ehrlichia/lyme - blood cultures have been sent as well - If ferritin elevated and bili increases further makes HLH likely and could place on higher pulse dose steroid- will send trigs, and ferritin- calculate H score when all data is available - LDH 343, previous urine samples was with trace blood- and RBC 10-30 noted in NOV and 2+ bilirubin - Coga panel to include Fibrinogen - If this is Babesia and/or her end organ failure worsens and refractory may need transfer for PLEX - Pending peripheral smear in morning consider heme/onc consultation - Peripheral smear patho consult on 03/16/23- The main finding present is leukopenia and a single cytoplasmic structure in a neutrophil is noted. 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 Anaplasma PCR is pending. No Babesia like organisms are noted. 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, Lyme IGg Positive IGM negative - Will send REAGAN, Parvo, LDH - Will continue with Doxycycline, Atovaquone - Babesia/malaria, Azithro for Babesia - Patient reports clindamycin allergy with hives and throat swelling - No other persons close to her with any symptoms - Denies any new medications or vaccinations or travel LINES/IV ACCESS - PIV Continue use of these lines DVT PROPHYLAXIS - SCDS, chemoprophylaxis will be held in setting of thrombocytopenia DISPO: ICU until hemodynamics proven stable and no worsening of end organ dysfunction I have personally spent 60 minutes of critical care time in the direct manageme nt of this patient. This is a life/limb threatening event. This includes time spent evaluating patient, direct bedside care, chart review, placing orders, interpretation of diagnostic studies, discussion with consultants, patient, and family members, as well as other required patient management activities. This time is exclusive of all separately billable procedures, and teaching time and separate from and in addition to any other critical care service time. Thank you for allowing us to participate in the care of this patient. Please refer to my attending physician's documentation for any further recommendations. 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 Patient came to the [facility] today for worsening symptoms of fevers, dyspnea, weakness. Patient reports that the week prior to , she started having fevers, posterior left sided headache, sinus congestion, and joint pain. At that time, she went to urgent care, had flu/COVID test performed that was negative, she was reportedly given antibiotic- possibly azithromycin and was discharged home, the patient followed up in the [facility] oon - at that time she was tested for Lyme and Anaplasmosis and had UA performed. Anaplasmosis smear at that time was suggested positive with smear to follow. Her Urine culture was without growth, she was discharged on Cefdinir as well as Doxycycline for presumed anaplasmosis. As she could not get in with her original PCP on as she continued to report fevers with TMax at home of 104, she had a walk in urgent appointment with Dr. Marie and [facility] PCP- she had blood cultures ordered and urine culture again as well as procalcitonin completed and CT abd/pelvis with oral and IV contrast performed. Her CT scan at that time revealed no lymphadenopathy, no acute process in abdomen or pelvis, fatty liver, possible cholelithiasis. She was placed on Ciprofloxacin at that time and appears Doxycycline was stopped. - patient returned to the [facility] for continued report of fevers, she had EBV testing performed that was IGGab positive but IGM negative, she was placed back on Doxycyline at that time and patient reports that she had continued on that. She had follow up with her PCP on and noted some diarrhea at that time, stool samples were ordered and appears that this was not obtained/completed. Review of lab history from 2020 through 03/14 shows that the patient has been chronically leukopenic with 3.17-4.48 range and anemic with HGB levels 10-11 range, Platelet counts have been normal. [id number]- Patient returns to the [facility] for continued fevers, myalgias, increase in dyspnea and fatigue. She reports that her headaches have improved and is not associated with photosensitivity, nausea/vomiting, or stiffness or pain in her neck, she has not had a tick on her that she recalls, and she also does not recall any rashes, itching spots, or changes to skin including palms of hands and soles of feet. She reports that her fevers are worse at night and that she has and she notes that it ranges from 103-104 and that every morning she wakes up with the sheets soaked in sweat. She has not traveled to any other areas, however she [place] living [place], [place] turnover of horses, but she is without contact to them, other than walking her dog through the adjacent pastures. She reports that she has not done this since Early February secondary to tick concerns. She currently denies any sinus congestion or pain, no pain in her flank or abdomen pain. She reports that she continues to take Tylenol and Motrin around the clock every 3-4 hours to control her fevers. [id number] On arrival to the [facility] the patient was noted to be tachycardic to the 130s, temperature at 38.1, and hypotensive to 88/48. She had routine labs performed to include blood cultures, PCT, Babesia, lyme, ehrlichia, mono, HPV and full respiratory biofire sent. Of these, Lyme IGM was positive- this was negative on 03/16/23, Babesia initial smear is negative as well as anaplasma smear. Her CBC was notable for Pancytopenia- her WBC count has dropped from 3.17 to now 0.26, HGB dropped from 10 to now 6.7, Platelet count has dropped from 154 to now 17. Her LFTs are noted with increase in AST from 42-97 stable ALT and elevated ALK PO4 to 202. LDH is elevated to 343. Her PCT is elevated to 1.01. The patient was treated for possible Babesia in the [facility] with Cefepime, Azithromycin, and Levaquin. She developed hives and itching post Cefepime and was given Benadryl with rapid resolution of symptoms. She was given 2.5 liters of crystalloid with improvement in her HR and her lactate went down from 4.3-2.8. She has been consented for blood by admitting service and will receive 1 unit of PRBC. Patient will be admitted to the ICU for continued sepsis resuscitation, work up for her pancytopenia, obtain imaging of CT chest, abdomen/pelvis. She without furhter evidence of end organ dysfunction at this time relating to brain, kidney, heart, lungs. Will await peripheral smear info, add on rickettsia for REAGAN as well as parvo. ID Consultation as well. CODE: FULL Allergies Allergy/AdvReac Type Severity Reaction Status Date / Time clindamycin Allergy Intermediate Hives Verified 03/21/23 10:41 morphine Allergy Intermediate HIVES Verified 03/21/23 10:41 Penicillins Allergy Intermediate HIGH FEVER Verified 03/21/23 10:41 AND HIVES Sulfa (Sulfonamide Allergy Intermediate HIVES Verified 03/21/23 10:41 Antibiotics) Home Medications Medication Instructions Recorded Confirmed Type azathioprine 50 mg tablet 100 mg PO BID 07/19/18 03/31/23 History ibuprofen 200 mg tablet 600 mg PO QID PRN Pain 07/19/18 03/31/23 History omeprazole 20 mg capsule,delayed 20 mg PO QAM 07/19/18 03/31/23 History release cholecalciferol (vitamin D3) 25 1,000 unit PO QAM 08/29/18 03/31/23 History mcg (1,000 unit) capsule (Vitamin D3) prednisone 5 mg tablet 7.5 mg PO QAM 08/29/18 03/31/23 History acetaminophen 500 mg tablet 1,000 mg PO DIRECTED PRN 03/25/21 03/31/23 History Fever/PAIN cyanocobalamin (vitamin B-12) 1,000 mcg PO DAILY 03/20/23 03/31/23 History 1,000 mcg tablet (Vitamin B-12) ferrous sulfate 325 mg (65 mg 325 mg PO DAILY 03/20/23 03/31/23 History iron) tablet (iron) lisinopril 20 mg tablet 20 mg PO QAM 03/20/23 03/31/23 History semaglutide 1 mg/dose (4 mg/3 mL) 1 mg subcut WK 03/20/23 03/31/23 History subcutaneous pen injector (Ozempic) valacyclovir 500 mg tablet 500 mg PO QPM 03/20/23 03/31/23 History ondansetron HCl 4 mg tablet 4 mg PO Q6 PRN Nausea 03/31/23 03/31/23 History Patient History Medical History Finger amputation, traumatic Failure of outpatient treatment Vaginal discharge Dysuria Tachycardia Fever UTI (urinary tract infection) IUD (intrauterine device) in place Chronic steroid use Diabetes Hearing loss Surgical History History of cochlear implant Uses cochlear implant No pertinent family history 2 left Wrist surgery H/O sinus surgery Family History Other Alcoholism Arthritis Bipolar 1 disorder Cataract Diabetes 1.5, managed as type 2 Glaucoma Heart disease Hyperlipemia Hypertension No pertinent family history Testicular cancer Social History Smoking Status: Former smoker Tobacco Type: Cigarettes Second Hand Exposure: No; Do You Dip or Chew Tobacco: No; Hx Alcohol Use: No Hx Substance Use: No Preferred Language: Zambian Communication Ability: Effective Visual Impairment: No Limitations Hearing Ability: Hard of Hearing Soda Worker Required: No Beliefs That Will Affect Care: None Current Living Situation: Alone and Spouse Current Living Situation Comment: Lives at home alone/sig other Feels Safe at Home: Yes Assistive Devices: None Review of Systems Review of Systems: REVIEW OF SYSTEMS: Constitutional: + fever, sweats or chills, myalgias Eyes: No diplopia, no worsening or blurred vision ENT: + chronic hearing loss with implants, improved congestion, no trouble swallowing Respiratory: +dyspnea, No cough, sputum, Cardiovascular: No chest pain, tightness or palpitations Abdomen: + nausea, No pain, vomiting, diarrhea or constipation Musculoskeletal: + myalgias to large joints, right index finger amputation chronic, No joint pain, calf pain, swelling Neurologic: No weakness, numbness/tingling, or balance problems Psychiatric: No anxiety or depression Skin: No rash or itch Physical Exam Physical Exam: PHYSICAL EXAM: General: awake, alert, no apparent distress Head: Normocephalic, atraumatic, no meningismus signs, ENT: PERRL, EOMI, conjunctivae pale, non icteric, no pharyngeal exudate, mucous membranes moist Neuro: AAO x 3, speech clear and appropriate, strength intact bilaterally 5/5, sensation intact and equal all extremities and dermatomes, no pronator drift Chest: equal rise and fall of the chest, no accessory muscle use, no heaves or thrills, Clear to auscultation, on room air, Cardiac: Regular rate and rhythm, telemetry reviewed- sinus tachycardia, skin warm dry, cap refill <3 seconds, peripheral pulses +2 no JVD, grade I systolic murmur, no JVD, no edema GI: NABS x 4 quadrants, soft, tender to palpation throughout, no rebound, guarding or tenderness : Spontaneously voiding, no pain, no CVA tenderness, Extremities: Normal inspection, no peripheral edema or erythema, calfs nontender to palpation Psych: Normal mood and affect Skin: skin color is normal, no rash or erythema, no fingernail lesions, no oral lesions Results & Data Results & Data Vital Signs (Past 12 Hours) Vital Signs Temp Pulse Pulse Resp BP BP Pulse Ox 03/31/23 21:43 109 H 20 94 03/31/23 21:30 115 H 17 93 03/31/23 21:30 85/49 L 03/31/23 21:11 101/52 L 03/31/23 21:11 113 H 18 94 03/31/23 21:00 116 H 21 03/31/23 21:00 83/46 L 03/31/23 20:30 123 H 17 95 03/31/23 20:30 99/56 L 03/31/23 20:00 134 H 22 93 03/31/23 20:00 88/48 L 03/31/23 19:48 138 H 19 95 03/31/23 19:48 92/43 L 03/31/23 19:30 135 H 17 95 03/31/23 19:16 133 H 17 96 03/31/23 19:15 133 H 03/31/23 19:08 126 H 20 104/64 94 03/31/23 19:08 38.1 C H 126 H 20 104/64 94 O2 Del Method 03/31/23 21:43 Room Air 03/31/23 21:30 03/31/23 21:30 03/31/23 21:11 03/31/23 21:11 03/31/23 21:00 03/31/23 21:00 03/31/23 20:30 03/31/23 20:30 03/31/23 20:00 03/31/23 20:00 03/31/23 19:48 03/31/23 19:48 03/31/23 19:30 03/31/23 19:16 03/31/23 19:15 03/31/23 19:08 Room Air 03/31/23 19:08 Room Air Laboratory Results Abnormal lab results 03/31/23 03/31/23 03/31/23 Range/Units 19:19 21:08 21:09 WBC 0.26 L* (4.8-10.8) K/ul RBC 2.14 L (4.20-5.40) M/uL Hgb 6.7 L* (12.0-16.0) g/dl Hct 20.7 L* (37.0-47.0) % RDW Std Deviation 59.6 H (36.4-46.3) fL RDW Coeff of Don 16.7 H (11.5-14.5) % Plt Count 17 L* (130-400) K/uL MPV 13.4 H (9.4-12.4) fL Platelet Estimate Signific. Decreased L (Normal) Sodium 135 L (136-145) mmol/L Chloride 108 H (98-107) mmol/L Carbon Dioxide 17 L (21-32) mmol/L BUN 24 H (6-23) mg/dl BUN/Creatinine Ratio 33.8 H (10-20) Glucose 132 H (70-99(Fasting)) mg/dl Lactate 4.2 H* 2.8 H* (0.4-2.0) mmol/L Calcium 7.8 L (8.6-10.3) mg/dl Magnesium 1.6 L (1.7-2.4) mg/dl Total Bilirubin 2.0 H (0.2-1.0) mg/dl Direct Bilirubin 1.2 H (0-0.2) mg/dl AST 97 H (13-39) U/L Alkaline Phosphatase 202 H (34-104) U/L Lactate Dehydrogenase 343 H (86-244) U/L Total Protein 4.5 L (6.0-8.3) gm/dl Albumin 2.1 L (3.4-5.0) gm/dl Procalcitonin 1.01 H (0-0.5) ng/ml Lyme Disease IgM Ab Positive A (Negative) Crossmatch See Detail Diagnostic Findings Abdomen/Pelvis CT 03/31/23 21:34 Exam(s): CT ABDOMEN + PELVIS Without Contrast EXAM: CT Abdomen and Pelvis Without Intravenous Contrast CLINICAL HISTORY: Reason for exam: elevated lfts. sepsis. TECHNIQUE: Axial computed tomography images of the abdomen and pelvis without intravenous contrast. CTDI is 45.81 mGy and DLP is 1928.24 mGy-cm. Automated exposure control was utilized for the study. A dose lowering technique was utilized adhering to the principles of ALARA. COMPARISON: CT abdomen pelvis March 18, 2023 FINDINGS: Lung bases: Unremarkable. No mass. No consolidation. ABDOMEN: Liver: Unremarkable. Gallbladder and bile ducts: Unremarkable. No calcified stones. No ductal dilation. Pancreas: Unremarkable. No ductal dilation. Spleen: Splenomegaly measuring up to 19.7 cm. This has increased when compared to CT scan from March 18, 2023. Correlate for etiology (correlate for lymphoma or mononucleosis). Indeterminate, peripherally calcified lesion in the spleen measures 5.0 x 4.7 cm. Stable when compared to March 18, 2023. Adrenals: Unremarkable. No mass. Kidneys and ureters: Unremarkable. No obstructing stones. No hydronephrosis. Stomach and bowel: Diverticulosis, without acute diverticulitis. No small bowel obstruction. PELVIS: Appendix: No findings to suggest acute appendicitis. Bladder: Unremarkable. No stones. Reproductive: IUD in the uterus. Calcified uterine fibroid measures 1. 8 cm. ABDOMEN and PELVIS: Intraperitoneal space: Unremarkable. No free air. No significant fluid collection. Bones/joints: No acute fracture. No dislocation. Soft tissues: Unremarkable. Vasculature: Unremarkable. No abdominal aortic aneurysm. Lymph nodes: Unremarkable. No enlarged lymph nodes. IMPRESSION: 1. Splenomegaly measuring up to 19.7 cm. This has increased when compared to CT scan from March 18, 2023. Correlate for etiology (correlate for lymphoma or mononucleosis). 2. Indeterminate, peripherally calcified lesion in the spleen measures 5. 0 x 4.7 cm. Stable when compared to March 18, 2023. 3. IUD in the uterus. 4. Diverticulosis, without acute diverticulitis. No small bowel obstruction. 5. No CT evidence of hepatic cirrhosis. Electronically signed by: Karthikeyan Barron MD 03/31/23 23:[address] 03/31/23 22:16 Exam(s): CT CHEST Without Contrast EXAM: CT Chest Without Intravenous Contrast CLINICAL HISTORY: Reason for exam: eval for opacity/lymphadenopathy. TECHNIQUE: Axial computed tomography images of the chest without intravenous contrast. CTDI is 45.81 mGy and DLP is 1928.24 mGy-cm. Automated exposure control was utilized for the study. A dose lowering technique was utilized adhering to the principles of ALARA. COMPARISON: No relevant prior studies available. FINDINGS: Lungs: Unremarkable. No mass. No consolidation. Pleural space: Unremarkable. No focal infiltrate, pleural effusion, or pneumothorax. Heart: Unremarkable. No cardiomegaly. No significant pericardial effusion. No significant coronary artery calcifications. Bones/joints: Unremarkable. No acute fracture. No dislocation. Soft tissues: Unremarkable. Vasculature: Unremarkable. No thoracic aortic aneurysm. Lymph nodes: Unremarkable. No enlarged lymph nodes. Spleen: Enlarged spleen measures 19.7 cm. Correlate for lymphoma or mononucleosis. IMPRESSION: 1. No focal infiltrate, pleural effusion, or pneumothorax. 2. Enlarged spleen measures 19.7 cm. Correlate for lymphoma or mononucleosis. Electronically signed by: Karthikeyan Barron MD 03/31/23 23:13 PM Medications Administered Discontinued Medications Diphenhydramine HCl (Diphenhydramine 50 Mg/Ml Vial) Confirm Administered Dose 50 mg .ROUTE .STK-MED ONE Stop: 03/31/23 19:52 Last Admin: 03/31/23 21:34 Dose: Not Given Documented By: ROALNDA Diphenhydramine HCl (Diphenhydramine 50 Mg/Ml Vial) 25 mg IV NOW STA Stop: 03/31/23 20:00 Last Admin: 03/31/23 20:11 Dose: 25 mg Documented By: ROLANDA Sodium Chloride (Nss) 1,000 mls @ 999 mls/hr IV .Q1H1M KATHY Stop: 03/31/23 20:15 Last Infusion: 03/31/23 22:25 Dose: Infused Documented By: Admin: 03/31/23 19:36 Dose: 999 mls/hr Documented By: ROLANDA Cefepime HCl (Maxipime) 2,000 mg in 20 mls @ 5 mls/min IV NOW STA; Protocol Stop: 03/31/23 19:17 Last Admin: 03/31/23 19:44 Dose: 5 mls/min Documented By: ROLANDA Acetaminophen (Ofirmev) 1,000 mg in 100 mls @ 400 mls/hr IV NOW STA Stop: 03/31/23 19:42 Last Infusion: 03/31/23 20:47 Dose: Infused Documented By: Admin: 03/31/23 19:33 Dose: 400 mls/hr Documented By: ROLANDA Lactated Ringer's (Lr) 1,000 mls @ 999 mls/hr IV .Q1H1M ONE Stop: 03/31/23 20:41 Last Infusion: 03/31/23 22:25 Dose: Infused Documented By: Admin: 03/31/23 20:44 Dose: 999 mls/hr Documented By: MICHEAL Levofloxacin/Dextrose (Levaquin/D5w) 750 mg in 150 mls @ 100 mls/hr IV NOW STA; Protocol Stop: 03/31/23 21:25 Last Admin: 03/31/23 21:35 Dose: Not Given Documented By: ROLANDA Sodium Chloride (Nss) 500 mls @ 999 mls/hr IV .Q31M ONE Stop: 03/31/23 20:28 Last Infusion: 03/31/23 22:25 Dose: Infused Documented By: Admin: 03/31/23 20:44 Dose: 999 mls/hr Documented By: MICHEAL ECG Additional Comments: Sinus tachycardia T wave abnormality, consider inferior ischemia Abnormal ECG When compared with ECG of 25-MAR-2021 12:57, Nonspecific T wave abnormality now evident in Inferior leads Nonspecific T wave abnormality now evident in Anterolateral leads Coding Level of Care Code 69846 CRITICAL CARE 1ST 30-74M Diagnoses Pancytopenia D61.818 Septic shock A41.9; R65.21 Tick-borne disease B88.2 Diabetes E11.9 Hearing loss H91.90 Spleen enlarged R16.1 Electrolyte abnormality E87.8 Metabolic acidosis E87.20
--- NOTE | 2023-03-31 23:14 | CT Scan Report ---
Exam(s): CT CHEST Without Contrast EXAM: CT Chest Without Intravenous Contrast CLINICAL HISTORY: Reason for exam: eval for opacity/lymphadenopathy. TECHNIQUE: Axial computed tomography images of the chest without intravenous contrast. CTDI is 45.81 mGy and DLP is 1928.24 mGy-cm. Automated exposure control was utilized for the study. A dose lowering technique was utilized adhering to the principles of ALARA. COMPARISON: No relevant prior studies available. FINDINGS: Lungs: Unremarkable. No mass. No consolidation. Pleural space: Unremarkable. No focal infiltrate, pleural effusion, or pneumothorax. Heart: Unremarkable. No cardiomegaly. No significant pericardial effusion. No significant coronary artery calcifications. Bones/joints: Unremarkable. No acute fracture. No dislocation. Soft tissues: Unremarkable. Vasculature: Unremarkable. No thoracic aortic aneurysm. Lymph nodes: Unremarkable. No enlarged lymph nodes. Spleen: Enlarged spleen measures 19.7 cm. Correlate for lymphoma or mononucleosis. IMPRESSION: 1. No focal infiltrate, pleural effusion, or pneumothorax. 2. Enlarged spleen measures 19.7 cm. Correlate for lymphoma or mononucleosis. Electronically signed by: Karthikeyan Barron MD 03/31/23 23:13 PM
--- NOTE | 2023-03-31 23:15 | CT Scan Report ---
Exam(s): CT ABDOMEN + PELVIS Without Contrast EXAM: CT Abdomen and Pelvis Without Intravenous Contrast CLINICAL HISTORY: Reason for exam: elevated lfts. sepsis. TECHNIQUE: Axial computed tomography images of the abdomen and pelvis without intravenous contrast. CTDI is 45.81 mGy and DLP is 1928.24 mGy-cm. Automated exposure control was utilized for the study. A dose lowering technique was utilized adhering to the principles of ALARA. COMPARISON: CT abdomen pelvis March 18, 2023 FINDINGS: Lung bases: Unremarkable. No mass. No consolidation. ABDOMEN: Liver: Unremarkable. Gallbladder and bile ducts: Unremarkable. No calcified stones. No ductal dilation. Pancreas: Unremarkable. No ductal dilation. Spleen: Splenomegaly measuring up to 19.7 cm. This has increased when compared to CT scan from March 18, 2023. Correlate for etiology (correlate for lymphoma or mononucleosis). Indeterminate, peripherally calcified lesion in the spleen measures 5.0 x 4.7 cm. Stable when compared to March 18, 2023. Adrenals: Unremarkable. No mass. Kidneys and ureters: Unremarkable. No obstructing stones. No hydronephrosis. Stomach and bowel: Diverticulosis, without acute diverticulitis. No small bowel obstruction. PELVIS: Appendix: No findings to suggest acute appendicitis. Bladder: Unremarkable. No stones. Reproductive: IUD in the uterus. Calcified uterine fibroid measures 1. 8 cm. ABDOMEN and PELVIS: Intraperitoneal space: Unremarkable. No free air. No significant fluid collection. Bones/joints: No acute fracture. No dislocation. Soft tissues: Unremarkable. Vasculature: Unremarkable. No abdominal aortic aneurysm. Lymph nodes: Unremarkable. No enlarged lymph nodes. IMPRESSION: 1. Splenomegaly measuring up to 19.7 cm. This has increased when compared to CT scan from March 18, 2023. Correlate for etiology (correlate for lymphoma or mononucleosis). 2. Indeterminate, peripherally calcified lesion in the spleen measures 5. 0 x 4.7 cm. Stable when compared to March 18, 2023. 3. IUD in the uterus. 4. Diverticulosis, without acute diverticulitis. No small bowel obstruction. 5. No CT evidence of hepatic cirrhosis. Electronically signed by: Karthikeyan Barron MD 03/31/23 23:14 PM
[2023-03-31] MEDS ORDERED: GLUCAGON FOR INJ 1 MG VIAL SQ PRN (23:30)
[2023-03-31] MEDS ORDERED: GLUCOSE 10 TAB/TUBE PO PRN (23:30)
[2023-03-31] MEDS ORDERED: NON-FORMULARY MEDICATION (Doxycycline Hyclate 100 mg tablet) PO SCH (23:30)
[2023-03-31] MEDS ORDERED: DEXTROSE 50% 50 ML SYRINGE IV PRN (23:30)
[2023-03-31] MEDS ORDERED: CARBOHYDRATES FOR HYPOGLYCEMIA PO PRN (23:30)
[2023-03-31] MEDS ORDERED: GLUCOSE 40% GEL 15 GM TUBE PO PRN (23:30)
[2023-03-31] MEDS: MAGNESIUM SULFATE / D5W 1 GM/100 ML BAG IV SCH (23:41)
[2023-04-01] MEDS ORDERED: DOXYCYCLINE HYCLATE 100 MG in DEXTROSE 5% MINI-B 100 ML IV SCH
[2023-04-01 01:32] LABS: Acetaminophen 5 ug/ml (10-30); Salicylate < 3.0 mg/dl (3.0-30)
[2023-04-01] MEDS: MAGNESIUM SULFATE / D5W 1 GM/100 ML BAG IV SCH (01:52)
[2023-04-01] MEDS: SODIUM CHLORIDE 0.9% 1,000 ML IV SCH ×3 (02:38→08:14)
[2023-04-01 03:07] LABS: Appearance Urine Clear (Clear); Bacteria Urine Automated Negative (Negative); Bilirubin Urine Negative (Negative); Blood Urine Negative (Negative); Color Urine Dark Yellow; Epithelial Cell Urine Auto >30 /lpf (0-5); Glucose Urine UA Negative (Negative); Ketones Urine Negative (Negative); Leukocyte Esterase Urine Negative (Negative); Nitrite Urine Negative (Negative); Protein Urine 1+ (Negative); Specific Gravity Urine 1.018 (1.000-1.030); Urobilinogen Urine Negative (Negative)
[2023-04-01 03:22] LABS: RBC Urine Automated 0-4 /hpf (0-4)
[2023-04-01] MEDS: ACETAMINOPHEN 325 MG TAB PO PRN ×2 (03:34→08:21)
[2023-04-01 04:24] LABS: Triglycerides 399 mg/dl (0-150)
[2023-04-01 04:25] LABS: Albumin Level 2.3 gm/dl (3.4-5.0); BUN Creatinine Ratio 28.2 (10-20); Bilirubin Direct 1.4 mg/dl (0-0.2); Bilirubin,Total 2.6 mg/dl (0.2-1.0); Calcium 7.7 mg/dl (8.6-10.3); Creatinine Clr Calc Pharmacy 95.8 ml/min; Est GFR (African American) 106.4 ml/min; Est GFR (Non-African American) 91.8 ml/min; Magnesium 2.1 mg/dl (1.7-2.4); Phosphorus 2.1 mg/dl (2.5-4.9); Potassium 4.6 mmol/L (3.5-5.1); Total Protein 4.9 gm/dl (6.0-8.3)
--- NOTE | 2023-04-01 04:36 | History & Physical Report ---
Date of Service March 31, 2023 Assessment & Plan (1) Sepsis: Plan: 47-year-old female with past medical history significant for type 2 diabetes, diabetic polyneuropathy, hypertension, GERD, history of urinary retention, osteoporosis, history of autoimmune inner ear disease, bilateral cataracts, history of vertigo, states ongoing fevers, headaches and bodyaches going on since prior to . Patient went to urgent on March 14 and her resp biofire was negative and she was prescribed doxycycline She was in the ER on March 16 as well still having high fevers UA was positive and she was sent home on cefdinir and also complete the doxycycline course.She was seen by PCP next monady and as she was not improving she was switched to Ceftin and doxycycline was stopped after 4 days. Patient again came to ER on March 18 as she was having high fevers 103.9. Prior urine cultures were unremarkable. But Anaplasma screen came back positive. She was given doxycycline. Again she went to PCP on March 28 complaining of nausea, heart racing short of breath and weakness. There is a plan to get IV fluids but IV line could not be established. She comes to the ER today with complaining of shortness of breath, fevers, body aches, feeling of exhaustion, dry cough, headaches, poor appetite generalized weakness. Found to have Pancytopenia and tachycardia and temp spikes. Past Anaplasma DNA test came back negative. Labs are again sent for tick borne illness Lyme screen came back positive. Question of babesiosis. Denies any chest pain. No runny nose. No diarrhea . No hematuria. Patient is somewhat hard of hearing. Has cochlear implant. 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 Initial lactic acid was 4.2 and repeat is 2.8. Denies any blood in stools or hematuria. In the ER after cefepime deve loped itchiness and rash that resolved now Severe sepsis Most likely tickborne illness Anaplasmosis smear On 03/16/23 was positive but DNA test came back negative Today 03/31/23 Lyme screen is positive Anaplasma smear is negative and Babesia smear is negative Patient has been on doxycycline p.o. for last 10 days Presents with severe sepsis and severe pancytopenia and elevated LFTs Possible complication tickborne illness possible Babesia Empirically on IV erythromycin, IV doxycycline and p.o. atovaquone ID consulted Getting fluids Presented with lactic is 4 point 8 repeat is 2.8 close monitor hemodynamics in the ICU Follow cultures Follow repeat labs Appreciated critical care help Severe pancytopenia Elevated LFTs Possibly from tickborne illness or viral infection CT abdomen pelvis showing enlarged spleen Doubt any malignancy. Recent labs are okay Await tickborne studies to come. Parvovirus ordered Await ID input Ordered a unit of PRBC follow labs closely. History of diabetes insulin sliding scale Will monitor History of autoimmune inner ear disease on Imuran On prednisone. Currently on dexamethasone GERD Protonix Hypertension holding lisinopril for sepsis DVT prophylax SCDs as patient has thrombocytopenia Disposition close monitoring ICU Level 1 full code History of Present Illness Chief Complaint: Fevers, body aches for the pancytopenia. Possible tickborne illness Primary Care Provider: John Matt DO 47-year-old female with past medical history significant for type 2 diabetes, diabetic polyneuropathy, hypertension, GERD, history of urinary retention, osteoporosis, history of autoimmune inner ear disease, bilateral cataracts, history of vertigo, states ongoing fevers, headaches and bodyaches going on since prior to . Patient went to urgent on March 14 and her resp biofire was negative and she was prescribed doxycycline She was in the ER on March 16 as well still having high fevers UA was positive and she was sent home on cefdinir and also complete the doxycycline course.She was seen by PCP next monady and as she was not improving she was switched to Ceftin and doxycycline was stopped after 4 days. Patient again came to ER on March 18 as she was having high fevers 103.9. Prior urine cultures were unremarkable. But Anaplasma screen came back positive. She was given doxycycline. Again she went to PCP on March 28 complaining of nausea, heart racing short of breath and weakness. There is a plan to get IV fluids but IV line could not be established. She comes to the ER today with complaining of shortness of breath, fevers, body aches, feeling of exhaustion, dry cough, headaches, poor appetite generalized weakness. Found to have Pancytopenia and tachycardia and temp spikes. Past Anaplasma DNA test came back negative. Labs are again sent for tick borne illness Lyme screen came back positive. Question of babesiosis. Denies any chest pain. No runny nose. No diarrhea . No hematuria. Patient is somewhat hard of hearing. Has cochlear implant. 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 Initial lactic acid was 4.2 and repeat is 2.8. Denies any blood in stools or hematuria. In the ER after cefepime developed itchiness and rash that resolved now Past medical history. As mentioned above. Past surgical history. 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 Biopsy of soft tissue left ankle. Dental surgery. Cochlear device implantation with mastoidectomy right side. Left wrist surgery. Exploratory surgery on left wrist scar tissue removed. Social history. Quit smoking in 2010. Smoked half pack for 12 years. Alcohol glass of wine every month. No drug use Family history. Mother has diabetes. Hypertension. Father has hypertension. Glaucoma. Brother has hypertension Allergies Allergy/AdvReac Type Severity Reaction Status Date / Time clindamycin Allergy Intermediate Hives Verified 03/21/23 10:41 morphine Allergy Intermediate HIVES Verified 03/21/23 10:41 Penicillins Allergy Intermediate HIGH FEVER Verified 03/21/23 10:41 AND HIVES Sulfa (Sulfonamide Allergy Intermediate HIVES Verified 03/21/23 10:41 Antibiotics) Home Medications Medication Instructions Recorded Confirmed Type azathioprine 50 mg tablet 100 mg PO BID 07/19/18 03/31/23 History ibuprofen 200 mg tablet 600 mg PO QID PRN Pain 07/19/18 03/31/23 History omeprazole 20 mg capsule,delayed 20 mg PO QAM 07/19/18 03/31/23 History release cholecalciferol (vitamin D3) 25 1,000 unit PO QAM 08/29/18 03/31/23 History mcg (1,000 unit) capsule (Vitamin D3) prednisone 5 mg tablet 7.5 mg PO QAM 08/29/18 03/31/23 History acetaminophen 500 mg tablet 1,000 mg PO DIRECTED PRN 03/25/21 03/31/23 History Fever/PAIN cyanocobalamin (vitamin B-12) 1,000 mcg PO DAILY 03/20/23 03/31/23 History 1,000 mcg tablet (Vitamin B-12) doxycycline hyclate 100 mg tablet 100 mg PO Q12H 14 days #28 tabs 03/20/23 03/31/23 Rx ferrous sulfate 325 mg (65 mg 325 mg PO DAILY 03/20/23 03/31/23 History iron) tablet (iron) lisinopril 20 mg tablet 20 mg PO QAM 03/20/23 03/31/23 History semaglutide 1 mg/dose (4 mg/3 mL) 1 mg subcut WK 03/20/23 03/31/23 History subcutaneous pen injector (Ozempic) valacyclovir 500 mg tablet 500 mg PO QPM 03/20/23 03/31/23 History ondansetron HCl 4 mg tablet 4 mg PO Q6 PRN Nausea 03/31/23 03/31/23 History Past Med/Surg History Medical History Finger amputation, traumatic Failure of outpatient treatment Vaginal discharge Dysuria Tachycardia Fever UTI (urinary tract infection) IUD (intrauterine device) in place Chronic steroid use Diabetes Hearing loss Surgical History History of cochlear implant Uses cochlear implant No pertinent family history 2 left Wrist surgery H/O sinus surgery Family History Other Alcoholism Arthritis Bipolar 1 disorder Cataract Diabetes 1.5, managed as type 2 Glaucoma Heart disease Hyperlipemia Hypertension No pertinent family history Testicular cancer Social History Smoking Status: Former smoker Tobacco Type: Cigarettes Second Hand Exposure: No; Do You Dip or Chew Tobacco: No; Hx Alcohol Use: No Hx Substance Use: No Preferred Language: Bolivian Communication Ability: Effective Visual Impairment: No Limitations Hearing Ability: Hard of Hearing [place] Slabs Required: No Beliefs That Will Affect Care: None Current Living Situation: Alone and Spouse Current Living Situation Comment: Lives at home alone/sig other Other Information That Helps Us Care for You: No Feels Safe at Home: Yes Safety Concerns: Feels Safe At This Time Assistive Devices: None Review of Systems Review of Systems: All systems reviewed & are unremarkable except as noted in HPI & below Physical Exam Physical Exam: General- Not in acute distress Head- atraumatic Eyes- PERRL. ENT- oropharynx clear Neck- supple, no JVD Lungs- clear to auscultation , no wheezing or crackles. Heart- tachycardia; no murmur, no gallop. Abdomen- normal bowel sounds, soft, nontender, no distension Extremities- no pretibial edema, no calf tenderness; peripheral pulses intact Neuro- alert, oriented x 3; PERRL, EOMI; no facial palsy; no dysarthria; motor 5/5 bilaterally; no cogwheel rigidity; patellar DTRs +2/2; toes downgoing bilaterally; finger to nose intact bilaterally Skin- warm & dry Results & Data Results & Data Vital Signs (Past 12 Hours) Vital Signs Temp Pulse Pulse Resp BP BP Pulse Ox 03/31/23 21:43 109 H 20 94 03/31/23 21:30 115 H 17 93 03/31/23 21:30 85/49 L 03/31/23 21:11 101/52 L 03/31/23 21:11 113 H 18 94 03/31/23 21:00 116 H 21 03/31/23 21:00 83/46 L 03/31/23 20:30 123 H 17 95 03/31/23 20:30 99/56 L 03/31/23 20:00 134 H 22 93 03/31/23 20:00 88/48 L 03/31/23 19:48 138 H 19 95 03/31/23 19:48 92/43 L 03/31/23 19:30 135 H 17 95 03/31/23 19:16 133 H 17 96 03/31/23 19:15 133 H 03/31/23 19:08 126 H 20 104/64 94 03/31/23 19:08 38.1 C H 126 H 20 104/64 94 O2 Del Method 03/31/23 21:43 Room Air 03/31/23 21:30 03/31/23 21:30 03/31/23 21:11 03/31/23 21:11 03/31/23 21:00 03/31/23 21:00 03/31/23 20:30 03/31/23 20:30 03/31/23 20:00 03/31/23 20:00 03/31/23 19:48 03/31/23 19:48 03/31/23 19:30 03/31/23 19:16 03/31/23 19:15 03/31/23 19:08 Room Air 03/31/23 19:08 Room Air Diagnostic Findings Laboratory Results WBC 0.34 K/ul (4.8-10.8) L* 04/01/23 03:51 RBC 2.85 M/uL (4.20-5.40) L 04/01/23 03:51 Hgb 8.8 g/dl (12.0-16.0) L 04/01/23 03:51 Hct 26.9 % (37.0-47.0) L 04/01/23 03:51 MCV 94.4 fL (80.0-100.0) 04/01/23 03:51 MCH 30.9 pg (25.0-34.0) 04/01/23 03:51 MCHC 32.7 g/dL (32.0-36.0) 04/01/23 03:51 RDW Std Deviation 57.5 fL (36.4-46.3) H 04/01/23 03:51 RDW Coeff of Don 16.8 % (11.5-14.5) H 04/01/23 03:51 Plt Count 22 K/uL (130-400) L* 04/01/23 03:51 MPV 13.4 fL (9.4-12.4) H 03/31/23 19:19 Immature Gran % (Auto) Cancelled 04/01/23 03:51 Neut % (Auto) Cancelled 04/01/23 03:51 Lymph % (Auto) Cancelled 04/01/23 03:51 [place] % (Auto) Cancelled 04/01/23 03:51 Eos % (Auto) Cancelled 04/01/23 03:51 Baso % (Auto) Cancelled 04/01/23 03:51 Neut # (Auto) Cancelled 04/01/23 03:51 Lymph # (Auto) Cancelled 04/01/23 03:51 [place] # (Auto) Cancelled 04/01/23 03:51 Eos # (Auto) Cancelled 04/01/23 03:51 Baso # (Auto) Cancelled 04/01/23 03:51 Immature Gran # (Auto) Cancelled 04/01/23 03:51 Neutrophils % (Manual) Cancelled 04/01/23 03:51 Band Neutrophils % Cancelled 04/01/23 03:51 Lymphocytes % (Manual) Cancelled 04/01/23 03:51 Prolymphocyte % Cancelled 04/01/23 03:51 Reactive Lymphs % (Man) Cancelled 04/01/23 03:51 Monocytes % (Manual) Cancelled 04/01/23 03:51 Eosinophils % (Manual) Cancelled 04/01/23 03:51 Basophils % (Manual) Cancelled 04/01/23 03:51 Metamyelocytes % (Man) Cancelled 04/01/23 03:51 Myelocytes % (Man) Cancelled 04/01/23 03:51 Promyelocytes % (Man) Cancelled 04/01/23 03:51 Blast Cells % (Manual) Cancelled 04/01/23 03:51 Plasma Cell % (Manual) Cancelled 04/01/23 03:51 Other Cells % Cancelled 04/01/23 03:51 Nucleated RBC % Cancelled 04/01/23 03:51 Neutrophils # (Manual) Cancelled 04/01/23 03:51 Band Neutrophils # Cancelled 04/01/23 03:51 Total Absolute Neuts Cancelled 04/01/23 03:51 Lymphocytes # (Manual) Cancelled 04/01/23 03:51 Prolymphocyte # Cancelled 04/01/23 03:51 Reactive Lymphs # Cancelled 04/01/23 03:51 Total Abs Lymphocytes Cancelled 04/01/23 03:51 Monocytes # (Manual) Cancelled 04/01/23 03:51 Eosinophils # (Manual) Cancelled 04/01/23 03:51 Basophils # (Manual) Cancelled 04/01/23 03:51 Metamyelocytes # (Man) Cancelled 04/01/23 03:51 Myelocytes # (Manual) Cancelled 04/01/23 03:51 Promyelocytes # (Man) Cancelled 04/01/23 03:51 Blast Cells # (Man) Cancelled 04/01/23 03:51 Plasma Cell # (Manual) Cancelled 04/01/23 03:51 Other Cells # Cancelled 04/01/23 03:51 Nucleated RBCs # (Man) Cancelled 04/01/23 03:51 Hypersegmented Neuts Cancelled 04/01/23 03:51 Hyposegmented Neuts Cancelled 04/01/23 03:51 Hypogranular Neuts Cancelled 04/01/23 03:51 Large Granular Lymphs Cancelled 04/01/23 03:51 # Lrg Granular Lymphs Cancelled 04/01/23 03:51 Hairy Cells Cancelled 04/01/23 03:51 Smudge Cells Cancelled 04/01/23 03:51 Toxic Granulation Cancelled 04/01/23 03:51 Toxic Vacuolation Cancelled 04/01/23 03:51 Dohle Bodies Cancelled 04/01/23 03:51 Bubba Rods Cancelled 04/01/23 03:51 Platelet Estimate Signific. Decreased (Normal) L 03/31/23 19:19 Hypogranular Platelets Cancelled 04/01/23 03:51 Giant Platelets Cancelled 04/01/23 03:51 Platelet Satelliting Cancelled 04/01/23 03:51 RBC Morphology Cancelled 04/01/23 03:51 Polychromasia Cancelled 04/01/23 03:51 Hypochromasia Cancelled 04/01/23 03:51 Poikilocytosis Cancelled 04/01/23 03:51 Basophilic Stippling Cancelled 04/01/23 03:51 Anisocytosis Cancelled 04/01/23 03:51 Microcytosis Cancelled 04/01/23 03:51 Macrocytosis Cancelled 04/01/23 03:51 Spherocytes Cancelled 04/01/23 03:51 Pappenheimer Bodies Cancelled 04/01/23 03:51 Sickle Cells Cancelled 04/01/23 03:51 Target Cells Cancelled 04/01/23 03:51 Tear Drop Cells Cancelled 04/01/23 03:51 Ovalocytes Cancelled 04/01/23 03:51 Stomatocytes Cancelled 04/01/23 03:51 Acuña-Levering Bodies Cancelled 04/01/23 03:51 Echinocytes Cancelled 04/01/23 03:51 Acanthocytes (Spur) Cancelled 04/01/23 03:51 Rouleaux Cancelled 04/01/23 03:51 RBC Agglutinates Cancelled 04/01/23 03:51 Schistocytes Cancelled 04/01/23 03:51 Sezary Cell Cancelled 04/01/23 03:51 PT 12.8 Seconds (9.0-12.0) H 04/01/23 03:51 INR 1.2 (0.9-1.1) H 04/01/23 03:51 APTT 50 Seconds (21-31) H 04/01/23 03:51 PTT Ratio 1.8 04/01/23 03:51 Fibrinogen 90 mg/dl (184-400) L* 04/01/23 03:51 Sodium 134 mmol/L (136-145) L 04/01/23 03:51 Potassium 4.6 mmol/L (3.5-5.1) 04/01/23 03:51 Chloride 107 mmol/L (98-107) 04/01/23 03:51 Carbon Dioxide 18 mmol/L (21-32) L 04/01/23 03:51 Anion Gap 9 (3-11) 04/01/23 03:51 BUN 22 mg/dl (6-23) 04/01/23 03:51 Creatinine 0.78 mg/dl (0.6-1.2) 04/01/23 03:51 Est Cr Clr Drug Dosing 95.8 ml/min 04/01/23 03:51 Est GFR ( Amer) 106.4 ml/min 04/01/23 03:51 Est GFR (Non-Af Amer) 91.8 ml/min 04/01/23 03:51 BUN/Creatinine Ratio 28.2 (10-20) H 04/01/23 03:51 Glucose 122 mg/dl (70-99(Fasting)) H 04/01/23 03:51 POC Glucose 107 mg/dl (70-99) H 03/31/23 23:25 Estimat Average Glucose 137 mg/dl 04/01/23 03:51 Hemoglobin A1c 6.4 % (4.5-5.6) H 04/01/23 03:51 Lactate 2.8 mmol/L (0.4-2.0) H* 03/31/23 21:08 Calcium 7.7 mg/dl (8.6-10.3) L 04/01/23 03:51 Phosphorus 2.1 mg/dl (2.5-4.9) L 04/01/23 03:51 Magnesium 2.1 mg/dl (1.7-2.4) 04/01/23 03:51 Ferritin > 7500.0 ng/ml (8-388) H 04/01/23 03:51 Total Bilirubin 2.6 mg/dl (0.2-1.0) H 04/01/23 03:51 Direct Bilirubin 1.4 mg/dl (0-0.2) H 04/01/23 03:51 AST 114 U/L (13-39) H 04/01/23 03:51 ALT 37 U/L (7-52) 04/01/23 03:51 Alkaline Phosphatase 212 U/L (34-104) H 04/01/23 03:51 Lactate Dehydrogenase 343 U/L (86-244) H 03/31/23 19:19 Troponin I High Sens 10.2 pg/ml (0-14) 03/31/23 19:19 Total Protein 4.9 gm/dl (6.0-8.3) L 04/01/23 03:51 Albumin 2.3 gm/dl (3.4-5.0) L 04/01/23 03:51 Triglycerides 399 mg/dl (0-150) H 04/01/23 03:51 Procalcitonin 1.01 ng/ml (0-0.5) H 03/31/23 19:19 Random Cortisol 5.42 mcg/dl 03/31/23 19:19 Urine Color Dark Yellow 04/01/23 02:40 Urine Appearance Clear (Clear) 04/01/23 02:40 Urine pH 6.0 (4.5-7.5) 04/01/23 02:40 Ur Specific Isabella 1.018 (1.000-1.030) 04/01/23 02:40 Urine Protein 1+ (Negative) H 04/01/23 02:40 Urine Glucose (UA) Negative (Negative) 04/01/23 02:40 Urine Ketones Negative (Negative) 04/01/23 02:40 Urine Blood Negative (Negative) 04/01/23 02:40 Urine Nitrite Negative (Negative) 04/01/23 02:40 Urine Bilirubin Negative (Negative) 04/01/23 02:40 Urine Urobilinogen Negative (Negative) 04/01/23 02:40 Ur Leukocyte Esterase Negative (Negative) 04/01/23 02:40 Urine WBC (Auto) 1-5 /hpf (0-5) 04/01/23 02:40 Urine RBC (Auto) 0-4 /hpf (0-4) 04/01/23 02:40 U Hyaline Cast (Auto) 1-5 /lpf (0-5) 04/01/23 02:40 U Epithel Cells (Auto) >30 /lpf (0-5) H 04/01/23 02:40 Urine Bacteria (Auto) Negative (Negative) 04/01/23 02:40 Nasal Screen MRSA (PCR) Negative (Negative) 04/01/23 Unknown Salicylates < 3.0 mg/dl (3.0-30) L 04/01/23 00:27 Acetaminophen 5 ug/ml (10-30) L 04/01/23 00:27 Adenovirus (PCR) Not Detected (NotDetected) 03/31/23 20:58 Anaplasma Smear See Comment 03/31/23 19:19 Babesia Smear See Comment 03/31/23 19:19 B. pertussis DNA (PCR) Not Detected (NotDetected) 03/31/23 20:58 B.parapertussis DNA PCR Not Detected (NotDetected) 03/31/23 20:58 Lyme Disease IgG Ab Negative (Negative) 03/31/23 19:19 Lyme Disease IgM Ab Positive (Negative) A 03/31/23 19:19 C. pneumoniae DNA (PCR) Not Detected (NotDetected) 03/31/23 20:58 Coronavirus OC43 (PCR) Not Detected (NotDetected) 03/31/23 20:58 Coronavirus HKU1 (PCR) Not Detected (NotDetected) 03/31/23 20:58 Coronavirus 229E (PCR) Not Detected (NotDetected) 03/31/23 20:58 SARS-CoV-2 (PCR) Not Detected (NotDetected) 03/31/23 20:58 Coronavirus NL63 (PCR) Not Detected (NotDetected) 03/31/23 20:58 Monoscreen Negative (Negative) 03/31/23 19:19 Human Metapneumovir PCR Not Detected (NotDetected) 03/31/23 20:58 Influenza Type A (PCR) Not Detected (NotDetected) 03/31/23 20:58 Influenza Type B (PCR) Not Detected (NotDetected) 03/31/23 20:58 M. pneumoniae (PCR) Not Detected (NotDetected) 03/31/23 20:58 Parainfluenza 1 (PCR) Not Detected (NotDetected) 03/31/23 20:58 Parainfluenza 2 (PCR) Not Detected (NotDetected) 03/31/23 20:58 Parainfluenza 3 (PCR) Not Detected (NotDetected) 03/31/23 20:58 Parainfluenza 4 (PCR) Not Detected (NotDetected) 03/31/23 20:58 RSV (PCR) Not Detected (NotDetected) 03/31/23 20:58 Entero/Rhino (PCR) Not Detected (NotDetected) 03/31/23 20:58 Blood Parasites ID Cancelled 04/01/23 03:51 Blood Type A Positive 03/31/23 21:09 Blood Type Recheck A Positive 03/31/23 22:35 Antibody Screen NEGATIVE 03/31/23 21:09 Crossmatch See Detail 03/31/23 21:09 Impressions Chest X-Ray 03/31/23 19:14 XR chest 1V portable HISTORY: 47 years-old Female Sepsis acute sepsis COMPARISON: Chest CT of same day TECHNIQUE: AP view of the chest FINDINGS: Cardiomediastinal and hilar silhouettes are within normal limits. Mild reticular interstitial coarsening. No pneumothorax, pleural effusion or lobar airspace consolidation. The bones appear grossly intact. IMPRESSION: Mild reticular interstitial coarsening correlates with intralobular septal thickening on the comparison chest CT suggestive of pulmonary vascular congestion. ACT 112: Negative or not required by law. The above report was generated using voice recognition software. It may contain grammatical, syntax or spelling errors. Electronically signed by: Cam Sharif M.D. 04/01/2023 7:44 AM Abdomen/Pelvis CT 03/31/23 21:34 Exam(s): CT ABDOMEN + PELVIS Without Contrast EXAM: CT Abdomen and Pelvis Without Intravenous Contrast CLINICAL HISTORY: Reason for exam: elevated lfts. sepsis. TECHNIQUE: Axial computed tomography images of the abdomen and pelvis without intravenous contrast. CTDI is 45.81 mGy and DLP is 1928.24 mGy-cm. Automated exposure control was utilized for the study. A dose lowering technique was utilized adhering to the principles of ALARA. COMPARISON: CT abdomen pelvis March 18, 2023 FINDINGS: Lung bases: Unremarkable. No mass. No consolidation. ABDOMEN: Liver: Unremarkable. Gallbladder and bile ducts: Unremarkable. No calcified stones. No ductal dilation. Pancreas: Unremarkable. No ductal dilation. Spleen: Splenomegaly measuring up to 19.7 cm. This has increased when compared to CT scan from March 18, 2023. Correlate for etiology (correlate for lymphoma or mononucleosis). Indeterminate, peripherally calcified lesion in the spleen measures 5.0 x 4.7 cm. Stable when compared to March 18, 2023. Adrenals: Unremarkable. No mass. Kidneys and ureters: Unremarkable. No obstructing stones. No hydronephrosis. Stomach and bowel: Diverticulosis, without acute diverticulitis. No small bowel obstruction. PELVIS: Appendix: No findings to suggest acute appendicitis. Bladder: Unremarkable. No stones. Reproductive: IUD in the uterus. Calcified uterine fibroid measures 1. 8 cm. ABDOMEN and PELVIS: Intraperitoneal space: Unremarkable. No free air. No significant fluid collection. Bones/joints: No acute fracture. No dislocation. Soft tissues: Unremarkable. Vasculature: Unremarkable. No abdominal aortic aneurysm. Lymph nodes: Unremarkable. No enlarged lymph nodes. IMPRESSION: 1. Splenomegaly measuring up to 19.7 cm. This has increased when compared to CT scan from March 18, 2023. Correlate for etiology (correlate for lymphoma or mononucleosis). 2. Indeterminate, peripherally calcified lesion in the spleen measures 5. 0 x 4.7 cm. Stable when compared to March 18, 2023. 3. IUD in the uterus. 4. Diverticulosis, without acute diverticulitis. No small bowel obstruction. 5. No CT evidence of hepatic cirrhosis. Electronically signed by: Karthikeyan Barron MD 03/31/23 23:[address] 03/31/23 22:16 Exam(s): CT CHEST Without Contrast EXAM: CT Chest Without Intravenous Contrast CLINICAL HISTORY: Reason for exam: eval for opacity/lymphadenopathy. TECHNIQUE: Axial computed tomography images of the chest without intravenous contrast. CTDI is 45.81 mGy and DLP is 1928.24 mGy-cm. Automated exposure control was utilized for the study. A dose lowering technique was utilized adhering to the principles of ALARA. COMPARISON: No relevant prior studies available. FINDINGS: Lungs: Unremarkable. No mass. No consolidation. Pleural space: Unremarkable. No focal infiltrate, pleural effusion, or pneumothorax. Heart: Unremarkable. No cardiomegaly. No significant pericardial effusion. No significant coronary artery calcifications. Bones/joints: Unremarkable. No acute fracture. No dislocation. Soft tissues: Unremarkable. Vasculature: Unremarkable. No thoracic aortic aneurysm. Lymph nodes: Unremarkable. No enlarged lymph nodes. Spleen: Enlarged spleen measures 19.7 cm. Correlate for lymphoma or mononucleosis. IMPRESSION: 1. No focal infiltrate, pleural effusion, or pneumothorax. 2. Enlarged spleen measures 19.7 cm. Correlate for lymphoma or mononucleosis. Electronically signed by: Karthikeyan Barron MD 03/31/23 23:13 PM ECG Additional Comments: ECG shows sinus tachycardia rate of 134. Nonspecific ST abnormality seen Code Status & VTE Plan VTE Prophylaxis Plan VTE Prophylaxis will be ordered: Yes (1) Sepsis Sepsis acute organ dysfunction status: unspecified Sepsis type: sepsis due to unspecified organism Qualified Code(s): A41.9 - Sepsis, unspecified organism
[2023-04-01 04:46] LABS: Hematocrit (blood only) 26.9 % (37.0-47.0); Hemoglobin 8.8 g/dl (12.0-16.0); Mean Corpuscular Hemoglobin 30.9 pg (25.0-34.0); Mean Corpuscular Hgb Conc 32.7 g/dL (32.0-36.0); Mean Corpuscular Volume 94.4 fL (80.0-100.0); Platelet Count 22 K/uL (130-400); RDW Coefficient of Variation 16.8 % (11.5-14.5); RDW Standard Deviation 57.5 fL (36.4-46.3); Red Blood Count 2.85 M/uL (4.20-5.40); White Blood Count 0.34 K/ul (4.8-10.8)
[2023-04-01 04:50] LABS: INR 1.2 (0.9-1.1); Partial Thromboplastin Ratio 1.8; Partial Thromboplastin Time 50 Seconds (21-31); Prothrombin Time 12.8 Seconds (9.0-12.0)
[2023-04-01 04:59] LABS: Fibrinogen 90 mg/dl (184-400)
[2023-04-01 05:26] LABS: Ferritin > 7500.0 ng/ml (8-388)
[2023-04-01] MEDS ORDERED: PLASMA-LYTE A 500 ML IV ONE (06:02)
[2023-04-01 07:21] LABS: Estimated Average Glucose 137 mg/dl; Hemoglobin A1C 6.4 % (4.5-5.6)
[2023-04-01] MEDS ORDERED: INSULIN ASPART PER UNIT CHARGE SC SCH (07:30)
[2023-04-01] MEDS ORDERED: ICU Protocol for HYPERglycemia SCH (07:30)
--- NOTE | 2023-04-01 07:46 | XRay Report ---
XR chest 1V portable HISTORY: 47 years-old Female Sepsis acute sepsis COMPARISON: Chest CT of same day TECHNIQUE: AP view of the chest FINDINGS: Cardiomediastinal and hilar silhouettes are within normal limits. Mild reticular interstitial coarsen ing. No pneumothorax, pleural effusion or lobar airspace consolidation. The bones appear grossly inta ct. IMPRESSION: Mild reticular interstitial coarsening correlates with intralobular septal thickening on the comparison chest CT suggestive of pulmonary vascular congestion. ACT 112: Negative or not required by law. The above report was generated using voice recognition software. It may contain grammatical, syntax o r spelling errors. Electronically signed by: Cam Sharif M.D. 04/01/2023 7:44 AM
[2023-04-01] MEDS ORDERED: PANTOprazole 40 MG TAB PO SCH (09:00)
[2023-04-01] MEDS ORDERED: CHOLECALCIFEROL 1,000 UNITS 25 MCG TAB PO SCH (09:00)
[2023-04-01] MEDS ORDERED: FERROUS SULFATE 325 MG TAB PO SCH (09:00)
[2023-04-01] MEDS ORDERED: dexAMETHasone 10 MG in SYRINGE 0 ML IV SCH (09:00)
[2023-04-01] MEDS ORDERED: ATOVAQUONE 750 MG/5 ML UDC PO SCH (09:00)
[2023-04-01] MEDS ORDERED: azaTHIOprine 50 MG TAB PO SCH (09:00)
[2023-04-01] MEDS ORDERED: CYANOCOBALAMIN (B-12) 500 MCG TABLET PO SCH (09:00)
[2023-04-01] MEDS ORDERED: predniSONE 2.5 MG TAB PO ONE (09:12)
--- NOTE | 2023-04-01 09:24 | Communication Note ---
Date of Service: April 01, 2023 I took over care of the patient from [facility] at 0730. Reviewed labs have ordered send outs to include IL-2 level and CXCL9. Discussed the case with hematology oncology who is off-site and unable to see the patient at bedside, recommending transfer to minimize time without treatment, patient will likely need bone marrow biopsy and flow cytology. I discussed the case with [facility], patient is stable for downgrade to medicine service at our institution, there is no hypotension she is mildly tachycardic tolerating room air able to converse in full sentences. Patient requesting normal home dose of prednisone and azithromycin appearing, holding dexamethasone pending probable bone marrow to be performed today. 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 Discussed peripheral smear results with pathology, no evidence of acute leukemia on peripheral smear. I have ordered the chart as well as images to be transferred with the patient to [facility]. I have personally spent 60 minutes of critical care time in the direct management of this patient. This is a life/limb threatening event. This includes time spent evaluating patient, direct bedside care, chart review, placing orders, interpretation of diagnostic studies, discussion with consultants, patient, and/or family members regarding treatment decisions, as well as other required patient management activities. This time is exclusive of all separately billable procedures, and teaching time and separate from and in addition to any other critical care service time. Coding Level of Care Code 36107 CRITICAL CARE EA ADD 30M Additional Critical Care Time Additional 30min Critical Care Time: Yes - 93430 x 2 (60 addl min) Additional Codes Critical Care Time - Additional 30min Critical Care Time: Yes - 08733 x 2 (60 addl min) ([id number])
--- NOTE | 2023-04-01 11:37 | Consultation ---
Date of Consultation April 01, 2023 Assessment & Plan (1) Pancytopenia: 3-week illness with headaches, bodyaches, and high fevers (though not on this admission) and failure to improve after series of antibiotics. Now with trilineage pancytopenia though a pathologist review of peripheral smear that is relatively unremarkable except for those low blood counts and specifically does not suggest microangiopathic changes, immature/pathologic cell forms, or other acute process Patient did have an initial positive smear for intracytoplasmic neutrophilic inclusions though those are not seen on a more recent study, PCR for Anaplasma is pending. She did have positive IgM studies for Lyme and both HSV-1 and 2. We note that she is somewhat immunocompromised with long-term treatment with Imuran/prednisone and therefore may be more susceptible to both common and unusual infections. Her symptoms have not resolved even after antibiotics including doxycycline. Current database is significant for significant pancytopenia, notably hemoglobin improved after single unit of red cell transfusion overnight. Coagulation times are moderately prolonged with a depressed fibrinogen level and markedly elevated D-dimer suggesting an element of consumptive coagulopathy. Creatinine is quite stable, ferritin is severely elevated with liver enzymes moderately elevated noting the bilirubin of 2.6 but with normal ALT, AST only approximately 3 times normal, and alk phos only twice normal triglycerides are moderately increased, TSH is normal. Imaging shows a significant evolution of splenomegaly though without marked adenopathy or other major findings in the chest/abdomen/pelvis of concern Notably the LDH is only moderately elevated. The normal creatinine, and only moderate elevation of LDH with no schistocytes on peripheral smear all suggest against a microangiopathic process. While that does not exclude HLH seems to go somewhat against that as well. There is no evidence of immature forms in the peripheral circulation but that certainly does not exclude an acute leukemia, major lymphoproliferative process, or even a malignancy involving the marrow though the latter would be unlikely in the absence of peripheral manifestations on the CT scan. Aplastic anemia is a consideration and indeed the response to Red cell transfusion suggests that we are dealing with a hypoproductive process at least with regards to red cells rather than a destructive process. Haptoglobin and reticulocyte count are pending for further assessment of that. Aplastic anemia would not usually be associated with the high fevers and systemic manifestations that she showsit can be a late consequence of hepatitis C infection but not necessarily part of the initial presentation. Secondary pancytopenia due to a significant infectious process and/or drug effect (rare from cephalosporins but not completely excluded; azathioprine can certainly be associated with pancytopenia if there has been some alteration of his recent metabolixm) are certainly in the differential diagnosis as well Marrow aspiration and biopsy early on will be an important part of her overall evaluation to quickly and more definitively understand the presence or absence of a primary hematologic process both for prognostication but also for specific treatment planning. (2) Spleen enlarged: Acute onset of splenic enlargement could be secondary to a severe infection but as well could be an indicator for lymphoproliferative process even in the absence of pathologic adenopathy and a peripheral lymphocytosis. It is far preferable to avoid any biopsy, aspiration, removal of the spleen especially in acute circumstances. Marrow aspiration biopsy may indirectly offer diagnostic possibilities. Given that acute enlargement, she is at some risk for splenic rupture and any acute change in vital signs, abdominal symptoms, or mentation should include that in the differential. (3) Headache: History of headache with low blood counts and a febrile illness suggests a need for rigorous evaluation [employer] to exclude bleed, any signs of inflammation/infection or discrete lymphoma like mass. MRI of the brain might be more sensitive for meningeal changes that might accompany what ever systemic process she has. Depending on those findings and ongoing symptoms as well as any peripheral diagnosis of HLH, may have to also consider CSF sampling (4) Sepsis: Especially given her medication-induced immunocompromise, have to be very careful to appropriately treat her for sepsis empirically even as we pursue a more broad differential diagnosis. She does have some elements of DIC but the available chart data does not suggest that there is any major signs of hemostasis. In general, treatment of the latter condition specifically would focus primarily on addressing the underlying cause. Up-to-Date does not suggest plasma or platelet transfusions based on numbers alone (except for platelets less than 10-20,000) though it would be aggressive with those supplements if there are signs of any concern over bleeding. ID consultation and ongoing assistance in management will be critical to be sure we are incorporating appropriate empiric treatment for atypical etiologies pending more complete data Plan 1. Not clear that we are dealing with a primary hematologic disorder. Marrow aspiration biopsy could be pivotal in understanding the pancytopenia and the splenomegaly that might be primarily hematologic in origin. We can certainly perform marrow aspiration and biopsy here and get good initial interpretation though our turnaround on a more sophisticated studies is delayed because our lab is not set up to do those in house. Among the hematologic differentials, HLH and acute leukemia in particular and for that matter aplastic anemia would require quaternary center care. I think in a younger patient who is previously reasonably healthy, it would be far more prudent to transfer her to such a center earlier rather than later so that diagnostics can be more efficiently pursued and she has a focused hematology/ID/rheumatology team to help look after her 2. To supplement the current database, we will submit folic acid, B12, reticulocyte counts and request for an acute hepatitis and CMV IgM screen. Given her previous treatment with immunosuppressive medications we will check immunoglobulin levels - if IgG is low it may be worthwhile supplementing that to help overcome any infection. Would strongly suggest that patient be approached for consent to perform HIV screening to complete appropriate background assessmentsthis is not based on any concern that she has particular behaviors that put her at higher risk but unfortunately any patient who has been involved in medical care may have had inadvertent exposures through suboptimally sterilized equipment. This is extremely rare but would be important to exclude rigorously 3. The infectious disease spectrum of the differential is a very important part of our overall concern. ID consultation is pending here but again there may be richer resources available in a quaternary center. Given the history of autoimmune disorder, rheumatology evaluation may be part of her ongoing assessment and management. ID and pharmacy may also be able to get perspectives on any drug related concerns. Certainly the Imuran may contribute to pancyto penia especially if there has been a compromise of metabolism during this evolving illness and should remain on hold until we have a better understanding of her overall situation. 4. Need to be acutely aware of the risk for splenic rupture and rapidly react to any suggestive changes in status 5. In the absence of bleeding, would be prudent with transfusions. Would probably be worthwhile to keep her platelet counts above the 10-20,000 range as per up-to-date recommendations but it is not clear that we need to immediately supplement with plasma or cryoprecipitate based on their recommendations. Would be very conservative with cellular blood transfusions overall, aplastic anemia is unlikely but if she does have that diagnosis and is at all considered a candidate for aggressive and early transplant, cumulative transfusions may impact upon its outcome. In a younger patient who is oxygenating well and without major history of cardiovascular issues I would be fairly strict using a 7 g/dL threshold for transfusion of red cells and would radiate all transfused products for now Apparently plans are underway for her transfer to [facility]. I remain available electronically through [facility] if there are any issues or concerns that arise prior to the completion of that transfer History of Present Illness Requesting Physician: Dr. Restrepo Reason for Consultation: Pancytopenia in the context of a febrile illness Attending Physician: Esteban Bonilla MD History of Present Illness Please note that this is a consultation constructed purely from review of the electronic database. I am working remotely and unable to speak directly with the patient or examine her. I reviewed the current admission records which seem to be an accurate source of relevant information but I am completely reliant on that for my conclusions and perspectives. Given the urgency of the situation and the potential that there are issues that are beyond our usual treatment acumen and capabilities, I have suggested the patient be transferred to a quaternary institution for more definitive diagnosis and management. Will make some provisional comments and review here, however, to assure that the workup is ongoing even as we await determination as to whether that transfer can be accomplished and if so how quickly. The evaluation is consultative in nature and all patient care and treatment decisions can either be accepted or rejected by the patient's primary hospital- based treating physician using their own independent medical judgment for the patient. Patient is a 47-year-old woman without any listed previous diagnosis of hematologic or oncologic conditions. Notably, however, she apparently does have a history of autoimmune ear disorder and has been on treatment with prednisone and Imuran for that. She apparently first developed symptomatology 3 weeks ago with fevers as high as 103.9, headaches, body aches. She does have a service dog who goes out only in the yard, she [place] [facility] but does not sound like she has high likelihood of exposure to ticks and has no listed exposures to toxic substances, others with acute illness, or any other obvious source for this condition. Series of cultures have been relatively unremarkable with Paulette and Gardnerella growing from vaginal cultures but otherwise negative. She did have a positive screen for intracytoplasmic neutrophilic inclusions noted 03/16/2023 but a 03/31/2020 3 repeat is negative. She has positive IgM antibodies for Lyme, HSV 1, and HSV-2 on recent laboratory studies. A Monospot has been negative on 2 occasions. There are series of pending assessments including Anaplasma PCR. She has been treated with a sequence of antibiotics including cefdinir, doxycycline, Ceftin, and then apparently did receive a dose of cefepime in the emergency room with an acute rash reaction and pruritus but that is subsequently resolved. Admission history and physical suggest she is in "no acute distress". 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, bilateral cataracts, history of vertigo Allergies Allergy/AdvReac Type Severity Reaction Status Date / Time clindamycin Allergy Intermediate Hives Verified 03/21/23 10:41 morphine Allergy Intermediate HIVES Verified 03/21/23 10:41 Penicillins Allergy Intermediate HIGH FEVER Verified 03/21/23 10:41 AND HIVES Sulfa (Sulfonamide Allergy Intermediate HIVES Verified 03/21/23 10:41 Antibiotics) Home Medications Medication Instructions Recorded Confirmed Type azathioprine 50 mg tablet 100 mg PO BID 07/19/18 03/31/23 History ibuprofen 200 mg tablet 600 mg PO QID PRN Pain 07/19/18 03/31/23 History omeprazole 20 mg capsule,delayed 20 mg PO QAM 07/19/18 03/31/23 History release cholecalciferol (vitamin D3) 25 1,000 unit PO QAM 08/29/18 03/31/23 History mcg (1,000 unit) capsule (Vitamin D3) prednisone 5 mg tablet 7.5 mg PO QAM 08/29/18 03/31/23 History acetaminophen 500 mg tablet 1,000 mg PO DIRECTED PRN 03/25/21 03/31/23 History Fever/PAIN cyanocobalamin (vitamin B-12) 1,000 mcg PO DAILY 03/20/23 03/31/23 History 1,000 mcg tablet (Vitamin B-12) doxycycline hyclate 100 mg tablet 100 mg PO Q12H 14 days #28 tabs 03/20/23 03/31/23 Rx ferrous sulfate 325 mg (65 mg 325 mg PO DAILY 03/20/23 03/31/23 History iron) tablet (iron) lisinopril 20 mg tablet 20 mg PO QAM 03/20/23 03/31/23 History semaglutide 1 mg/dose (4 mg/3 mL) 1 mg subcut WK 03/20/23 03/31/23 History subcutaneous pen injector (Ozempic) valacyclovir 500 mg tablet 500 mg PO QPM 03/20/23 03/31/23 History ondansetron HCl 4 mg tablet 4 mg PO Q6 PRN Nausea 03/31/23 03/31/23 History Patient History Medical History Finger amputation, traumatic Failure of outpatient treatment Vaginal discharge Dysuria Tachycardia Fever UTI (urinary tract infection) IUD (intrauterine device) in place Chronic steroid use Diabetes Hearing loss Surgical History History of cochlear implant Uses cochlear implant No pertinent family history 2 left Wrist surgery H/O sinus surgery Family History Other Alcoholism Arthritis Bipolar 1 disorder Cataract Diabetes 1.5, managed as type 2 Glaucoma Heart disease Hyperlipemia Hypertension No pertinent family history Testicular cancer Social History Smoking Status: Former smoker Tobacco Type: Cigarettes Second Hand Exposure: No; Do You Dip or Chew Tobacco: No; Hx Alcohol Use: No Hx Substance Use: No Preferred Language: Georgian Communication Ability: Effective Visual Impairment: No Limitations Hearing Ability: 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 Pulse ox is excellent on room air, she does have a moderate tachycardia at 112 with BP 102/56 I cannot examine the patient myself currently but note that the admission history and physical from the hospital service suggest no ongoing skin rash, major petechiae/bruising or bleeding, adenopathy, abdominal tenderness, or other major focal change Results & Data Vital Signs (Past 12 Hours) Vital Signs Temp Pulse Pulse Resp BP BP Pulse Ox 04/01/23 10:34 37.4 C 112 H 22 102/56 L 97 04/01/23 10:15 37.6 C H 117 H 22 106/56 L 97 04/01/23 10:11 37.8 C H 100 H 23 101/55 L 96 04/01/23 09:57 37.8 C H 117 H 23 102/55 L 96 04/01/23 09:00 119 H 19 99 04/01/23 09:00 87/53 L 04/01/23 08:22 37.3 C 04/01/23 08:15 117 H 17 04/01/23 08:15 91/57 L 04/01/23 08:00 121 H 20 93 04/01/23 08:00 93/55 L 04/01/23 07:45 103/58 L 04/01/23 07:45 119 H 20 93 04/01/23 07:30 92/49 L 04/01/23 07:30 122 H 25 H 94 04/01/23 07:15 114 H 24 91 04/01/23 07:15 95/54 L 04/01/23 07:00 105/52 L 04/01/23 07:00 113 H 23 91 04/01/23 06:45 98/50 L 04/01/23 06:45 116 H 23 91 04/01/23 06:30 114 H 23 91 04/01/23 06:30 90/50 L 04/01/23 06:15 114 H 23 91 04/01/23 06:15 95/49 L 04/01/23 06:00 117 H 21 91 04/01/23 06:00 81/48 L 04/01/23 05:00 102/51 L 04/01/23 05:00 126 H 28 H 91 04/01/23 04:58 37.6 C H 04/01/23 04:16 131 H 27 H 92 04/01/23 04:16 113/58 L 04/01/23 04:13 37.6 C H 04/01/23 03:00 115 H 28 H 04/01/23 03:00 109/82 04/01/23 02:45 114 H 24 04/01/23 02:45 114/74 04/01/23 02:19 37.5 C 04/01/23 02:18 37.5 C 111 H 21 104/65 98 04/01/23 02:00 104/65 04/01/23 02:00 108 H 20 99 04/01/23 01:28 37.1 C 103 H 17 102/61 98 04/01/23 01:13 37 C 04/01/23 01:00 103 H 17 98 04/01/23 01:00 94/55 L 04/01/23 00:58 37 C 104 H 19 94/55 L 98 04/01/23 00:43 36.9 C 102 H 17 96/56 L 98 04/01/23 00:42 36.9 C 04/01/23 00:30 103 H 17 98 04/01/23 00:30 84/54 L 04/01/23 00:27 108 H 17 97 04/01/23 00:27 86/55 L 04/01/23 00:26 107 H 13 97 04/01/23 00:26 77/54 L 04/01/23 00:20 37.2 C 109 H 18 86/55 L 99 04/01/23 00:00 105 H 04/01/23 00:00 104 H 17 96 04/01/23 00:00 84/58 L 03/31/23 23:55 104 H 14 95 03/31/23 23:55 88/61 L Laboratory Results Laboratory Results - last 24 hr 03/31/23 03/31/23 03/31/23 19:19 20:58 21:08 WBC 0.26 L* RBC 2.14 L Hgb 6.7 L* Hct 20.7 L* MCV 96.7 MCH 31.3 MCHC 32.4 RDW Std Deviation 59.6 H RDW Coeff of Don 16.7 H Plt Count 17 L* MPV 13.4 H Immature Gran % (Auto) Cancelled Neut % (Auto) Cancelled Lymph % (Auto) Cancelled [place] % (Auto) Cancelled Eos % (Auto) Cancelled Baso % (Auto) Cancelled Neut # (Auto) Cancelled Lymph # (Auto) Cancelled [place] # (Auto) Cancelled Eos # (Auto) Cancelled Baso # (Auto) Cancelled Immature Gran # (Auto) Cancelled Neutrophils % (Manual) Cancelled Band Neutrophils % Cancelled Lymphocytes % (Manual) Cancelled Prolymphocyte % Cancelled Reactive Lymphs % (Man) Cancelled Monocytes % (Manual) Cancelled Eosinophils % (Manual) Cancelled Basophils % (Manual) Cancelled Metamyelocytes % (Man) Cancelled Myelocytes % (Man) Cancelled Promyelocytes % (Man) Cancelled Blast Cells % (Manual) Cancelled Plasma Cell % (Manual) Cancelled Other Cells % Cancelled Nucleated RBC % Cancelled Neutrophils # (Manual) Cancelled Band Neutrophils # Cancelled Total Absolute Neuts Cancelled Lymphocytes # (Manual) Cancelled Prolymphocyte # Cancelled Reactive Lymphs # Cancelled Total Abs Lymphocytes Cancelled Monocytes # (Manual) Cancelled Eosinophils # (Manual) Cancelled Basophils # (Manual) Cancelled Metamyelocytes # (Man) Cancelled Myelocytes # (Manual) Cancelled Promyelocytes # (Man) Cancelled Blast Cells # (Man) Cancelled Plasma Cell # (Manual) Cancelled Other Cells # Cancelled Nucleated RBCs # (Man) Cancelled Hypersegmented Neuts Cancelled Hyposegmented Neuts Cancelled Hypogranular Neuts Cancelled Large Granular Lymphs Cancelled # Lrg Granular Lymphs Cancelled Hairy Cells Cancelled Smudge Cells Cancelled Toxic Granulation Cancelled Toxic Vacuolation Cancelled Dohle Bodies Cancelled Bubba Rods Cancelled Platelet Estimate Signific. Decreased L Hypogranular Platelets Cancelled Giant Platelets Cancelled Platelet Satelliting Cancelled RBC Morphology Cancelled Polychromasia Cancelled Hypochromasia Cancelled Poikilocytosis Cancelled Basophilic Stippling Cancelled Anisocytosis Cancelled Microcytosis Cancelled Macrocytosis Cancelled Spherocytes Cancelled Pappenheimer Bodies Cancelled Sickle Cells Cancelled Target Cells Cancelled Tear Drop Cells Cancelled Ovalocytes Cancelled Stomatocytes Cancelled [place] Bodies Cancelled Echinocytes Cancelled Acanthocytes (Spur) Cancelled Rouleaux Cancelled RBC Agglutinates Cancelled Schistocytes Cancelled Peripher Smr Path Cons Sezary Cell Cancelled Haptoglobin PT INR APTT PTT Ratio Fibrinogen Sodium 135 L Potassium 4.3 Chloride 108 H Carbon Dioxide 17 L Anion Gap 10 BUN 24 H Creatinine 0.71 Est Cr Clr Drug Dosing 104.1 Est GFR ( Amer) 119.2 Est GFR (Non-Af Amer) 102.9 BUN/Creatinine Ratio 33.8 H Glucose 132 H POC Glucose Estimat Average Glucose Hemoglobin A1c Lactate 4.2 H* 2.8 H* Calcium 7.8 L Phosphorus Magnesium 1.6 L Ferritin Total Bilirubin 2.0 H Direct Bilirubin 1.2 H AST 97 H ALT 33 Alkaline Phosphatase 202 H Lactate Dehydrogenase 343 H Troponin I High Sens 10.2 Total Protein 4.5 L Albumin 2.1 L Triglycerides Interleukin 2-Receptor Procalcitonin 1.01 H TSH Random Cortisol 5.42 Urine Color Urine Appearance Urine pH Ur Specific [place] Urine Protein Urine Glucose (UA) Urine Ketones Urine Blood Urine Nitrite Urine Bilirubin Urine Urobilinogen Ur Leukocyte Esterase Urine WBC (Auto) Urine RBC (Auto) U Hyaline Cast (Auto) U Epithel Cells (Auto) Urine Bacteria (Auto) Nasal Screen MRSA (PCR) Salicylates Acetaminophen Adenovirus (PCR) Not Detected Anaplasma Smear See Comment A. phagocytophilum DNA Pending Babesia Smear See Comment Babesia microti DNA PCR Pending B. pertussis DNA (PCR) Not Detected B.parapertussis DNA PCR Not Detected Lyme Disease IgG Ab Negative Lyme IgG (Western Blot) Pending Lyme IgG 18 kDa Band Pending Lyme IgG 23 kDa Band Pending Lyme IgG 28 kDa Band Pending Lyme IgG 30 kDa Band Pending Lyme IgG 39 kDa Band Pending Lyme IgG 41 kDa Band Pending Lyme IgG 45 kDa Band Pending Lyme IgG 58 kDa Band Pending Lyme IgG 66 kDa Band Pending Lyme IgG 93 kDa Band Pending Lyme IgM Ab (WB) Pending Lyme Disease IgM Ab Positive A Lyme IgM 23 kDa Band Pending Lyme IgM 39 kDa Band Pending Lyme IgM 41 kDa Band Pending C. pneumoniae DNA (PCR) Not Detected Coronavirus OC43 (PCR) Not Detected Coronavirus HKU1 (PCR) Not Detected Coronavirus 229E (PCR) Not Detected SARS-CoV-2 (PCR) Not Detected Coronavirus NL63 (PCR) Not Detected E. chaffeensis IgG Ab Pending E. chaffeensis IgM Ab Pending E.chaffeensis DNA (PCR) Pending E. chaffeensis Interp Pending E. chaffeensis Comment Pending Monoscreen Negative Human Metapneumovir PCR Not Detected Influenza Type A (PCR) Not Detected Influenza Type B (PCR) Not Detected M. pneumoniae (PCR) Not Detected Parainfluenza 1 (PCR) Not Detected Parainfluenza 2 (PCR) Not Detected Parainfluenza 3 (PCR) Not Detected Parainfluenza 4 (PCR) Not Detected Parvovirus Source Parvovirus B19 Detect RSV (PCR) Not Detected Entero/Rhino (PCR) Not Detected Rickettsia IgG Ab Rickettsia IgM Ab Blood Parasites ID Cancelled Miscellaneous Test Blood Type Blood Type Recheck Antibody Screen Crossmatch 03/31/23 03/31/23 03/31/23 21:09 22:35 23:25 WBC RBC Hgb Hct MCV MCH MCHC RDW Std Deviation RDW Coeff of Don Plt Count MPV Immature Gran % (Auto) Neut % (Auto) Lymph % (Auto) [place] % (Auto) Eos % (Auto) Baso % (Auto) Neut # (Auto) Lymph # (Auto) [place] # (Auto) Eos # (Auto) Baso # (Auto) Immature Gran # (Auto) Neutrophils % (Manual) Band Neutrophils % Lymphocytes % (Manual) Prolymphocyte % Reactive Lymphs % (Man) Monocytes % (Manual) Eosinophils % (Manual) Basophils % (Manual) Metamyelocytes % (Man) Myelocytes % (Man) Promyelocytes % (Man) Blast Cells % (Manual) Plasma Cell % (Manual) Other Cells % Nucleated RBC % Neutrophils # (Manual) Band Neutrophils # Total Absolute Neuts Lymphocytes # (Manual) Prolymphocyte # Reactive Lymphs # Total Abs Lymphocytes Monocytes # (Manual) Eosinophils # (Manual) Basophils # (Manual) Metamyelocytes # (Man) Myelocytes # (Manual) Promyelocytes # (Man) Blast Cells # (Man) Plasma Cell # (Manual) Other Cells # Nucleated RBCs # (Man) Hypersegmented Neuts Hyposegmented Neuts Hypogranular Neuts Large Granular Lymphs # Lrg Granular Lymphs Hairy Cells Smudge Cells Toxic Granulation Toxic Vacuolation Dohle Bodies Bubba Rods Platelet Estimate Hypogranular Platelets Giant Platelets Platelet Satelliting RBC Morphology Polychromasia Hypochromasia Poikilocytosis Basophilic Stippling Anisocytosis Microcytosis Macrocytosis Spherocytes Pappenheimer Bodies Sickle Cells Target Cells Tear Drop Cells Ovalocytes Stomatocytes [place] Bodies Echinocytes Acanthocytes (Spur) Rouleaux RBC Agglutinates Schistocytes Peripher Smr Path Cons Sezary Cell Haptoglobin PT INR APTT PTT Ratio Fibrinogen Sodium Potassium Chloride Carbon Dioxide Anion Gap BUN Creatinine Est Cr Clr Drug Dosing Est GFR ( Amer) Est GFR (Non-Af Amer) BUN/Creatinine Ratio Glucose POC Glucose 107 H Estimat Average Glucose Hemoglobin A1c Lactate Calcium Phosphorus Magnesium Ferritin Total Bilirubin Direct Bilirubin AST ALT Alkaline Phosphatase Lactate Dehydrogenase Troponin I High Sens Total Protein Albumin Triglycerides Interleukin 2-Receptor Procalcitonin TSH Random Cortisol Urine Color Urine Appearance Urine pH Ur Specific [place] Urine Protein Urine Glucose (UA) Urine Ketones Urine Blood Urine Nitrite Urine Bilirubin Urine Urobilinogen Ur Leukocyte Esterase Urine WBC (Auto) Urine RBC (Auto) U Hyaline Cast (Auto) U Epithel Cells (Auto) Urine Bacteria (Auto) Nasal Screen MRSA (PCR) Salicylates Acetaminophen Adenovirus (PCR) Anaplasma Smear A. phagocytophilum DNA Babesia Smear Babesia microti DNA PCR B. pertussis DNA (PCR) B.parapertussis DNA PCR Lyme Disease IgG Ab Lyme IgG (Western Blot) Lyme IgG 18 kDa Band Lyme IgG 23 kDa Band Lyme IgG 28 kDa Band Lyme IgG 30 kDa Band Lyme IgG 39 kDa Band Lyme IgG 41 kDa Band Lyme IgG 45 kDa Band Lyme IgG 58 kDa Band Lyme IgG 66 kDa Band Lyme IgG 93 kDa Band Lyme IgM Ab (WB) Lyme Disease IgM Ab Lyme IgM 23 kDa Band Lyme IgM 39 kDa Band Lyme IgM 41 kDa Band C. pneumoniae DNA (PCR) Coronavirus OC43 (PCR) Coronavirus HKU1 (PCR) Coronavirus 229E (PCR) SARS-CoV-2 (PCR) Coronavirus NL63 (PCR) E. chaffeensis IgG Ab E. chaffeensis IgM Ab E.chaffeensis DNA (PCR) E. chaffeensis Interp E. chaffeensis Comment Monoscreen Human Metapneumovir PCR Influenza Type A (PCR) Influenza Type B (PCR) M. pneumoniae (PCR) Parainfluenza 1 (PCR) Parainfluenza 2 (PCR) Parainfluenza 3 (PCR) Parainfluenza 4 (PCR) Parvovirus Source Pending Parvovirus B19 Detect Pending RSV (PCR) Entero/Rhino (PCR) Rickettsia IgG Ab Pending Rickettsia IgM Ab Pending Blood Parasites ID Miscellaneous Test Blood Type A Positive Blood Type Recheck A Positive Antibody Screen NEGATIVE Crossmatch See Detail 04/01/23 04/01/23 04/01/23 00:27 02:40 03:51 WBC 0.34 L* RBC 2.85 L Hgb 8.8 L Hct 26.9 L MCV 94.4 MCH 30.9 MCHC 32.7 RDW Std Deviation 57.5 H RDW Coeff of Don 16.8 H Plt Count 22 L* MPV Immature Gran % (Auto) Cancelled Neut % (Auto) Cancelled Lymph % (Auto) Cancelled [place] % (Auto) Cancelled Eos % (Auto) Cancelled Baso % (Auto) Cancelled Neut # (Auto) Cancelled Lymph # (Auto) Cancelled [place] # (Auto) Cancelled Eos # (Auto) Cancelled Baso # (Auto) Cancelled Immature Gran # (Auto) Cancelled Neutrophils % (Manual) Cancelled Band Neutrophils % Cancelled Lymphocytes % (Manual) Cancelled Prolymphocyte % Cancelled Reactive Lymphs % (Man) Cancelled Monocytes % (Manual) Cancelled Eosinophils % (Manual) Cancelled Basophils % (Manual) Cancelled Metamyelocytes % (Man) Cancelled Myelocytes % (Man) Cancelled Promyelocytes % (Man) Cancelled Blast Cells % (Manual) Cancelled Plasma Cell % (Manual) Cancelled Other Cells % Cancelled Nucleated RBC % Cancelled Neutrophils # (Manual) Cancelled Band Neutrophils # Cancelled Total Absolute Neuts Cancelled Lymphocytes # (Manual) Cancelled Prolymphocyte # Cancelled Reactive Lymphs # Cancelled Total Abs Lymphocytes Cancelled Monocytes # (Manual) Cancelled Eosinophils # (Manual) Cancelled Basophils # (Manual) Cancelled Metamyelocytes # (Man) Cancelled Myelocytes # (Manual) Cancelled Promyelocytes # (Man) Cancelled Blast Cells # (Man) Cancelled Plasma Cell # (Manual) Cancelled Other Cells # Cancelled Nucleated RBCs # (Man) Cancelled Hypersegmented Neuts Cancelled Hyposegmented Neuts Cancelled Hypogranular Neuts Cancelled Large Granular Lymphs Cancelled # Lrg Granular Lymphs Cancelled Hairy Cells Cancelled Smudge Cells Cancelled Toxic Granulation Cancelled Toxic Vacuolation Cancelled Dohle Bodies Cancelled Bubba Rods Cancelled Platelet Estimate Hypogranular Platelets Cancelled Giant Platelets Cancelled Platelet Satelliting Cancelled RBC Morphology Cancelled Polychromasia Cancelled Hypochromasia Cancelled Poikilocytosis Cancelled Basophilic Stippling Cancelled Anisocytosis Cancelled Microcytosis Cancelled Macrocytosis Cancelled Spherocytes Cancelled Pappenheimer Bodies Cancelled Sickle Cells Cancelled Target Cells Cancelled Tear Drop Cells Cancelled Ovalocytes Cancelled Stomatocytes Cancelled [place] Bodies Cancelled Echinocytes Cancelled Acanthocytes (Spur) Cancelled Rouleaux Cancelled RBC Agglutinates Cancelled Schistocytes Cancelled Peripher Smr Path Cons Sezary Cell Cancelled Haptoglobin Pending PT 12.8 H INR 1.2 H APTT 50 H PTT Ratio 1.8 Fibrinogen 90 L* Sodium 134 L Potassium 4.6 Chloride 107 Carbon Dioxide 18 L Anion Gap 9 BUN 22 Creatinine 0.78 Est Cr Clr Drug Dosing 95.8 Est GFR ( Amer) 106.4 Est GFR (Non-Af Amer) 91.8 BUN/Creatinine Ratio 28.2 H Glucose 122 H POC Glucose Estimat Average Glucose 137 Hemoglobin A1c 6.4 H Lactate Calcium 7.7 L Phosphorus 2.1 L Magnesium 2.1 Ferritin > 7500.0 H Total Bilirubin 2.6 H Direct Bilirubin 1.4 H AST 114 H ALT 37 Alkaline Phosphatase 212 H Lactate Dehydrogenase Troponin I High Sens Total Protein 4.9 L Albumin 2.3 L Triglycerides 399 H Interleukin 2-Receptor Procalcitonin TSH 2.907 Random Cortisol Urine Color Dark Yellow Urine Appearance Clear Urine pH 6.0 Ur Specific [place] 1.018 Urine Protein 1+ H Urine Glucose (UA) Negative Urine Ketones Negative Urine Blood Negative Urine Nitrite Negative Urine Bilirubin Negative Urine Urobilinogen Negative Ur Leukocyte Esterase Negative Urine WBC (Auto) 1-5 Urine RBC (Auto) 0-4 U Hyaline Cast (Auto) 1-5 U Epithel Cells (Auto) >30 H Urine Bacteria (Auto) Negative Nasal Screen MRSA (PCR) Salicylates < 3.0 L Acetaminophen 5 L Adenovirus (PCR) Anaplasma Smear A. phagocytophilum DNA Babesia Smear Babesia microti DNA PCR B. pertussis DNA (PCR) B.parapertussis DNA PCR Lyme Disease IgG Ab Lyme IgG (Western Blot) Lyme IgG 18 kDa Band Lyme IgG 23 kDa Band Lyme IgG 28 kDa Band Lyme IgG 30 kDa Band Lyme IgG 39 kDa Band Lyme IgG 41 kDa Band Lyme IgG 45 kDa Band Lyme IgG 58 kDa Band Lyme IgG 66 kDa Band Lyme IgG 93 kDa Band Lyme IgM Ab (WB) Lyme Disease IgM Ab Lyme IgM 23 kDa Band Lyme IgM 39 kDa Band Lyme IgM 41 kDa Band C. pneumoniae DNA (PCR) Coronavirus OC43 (PCR) Coronavirus HKU1 (PCR) Coronavirus 229E (PCR) SARS-CoV-2 (PCR) Coronavirus NL63 (PCR) E. chaffeensis IgG Ab E. chaffeensis IgM Ab E.chaffeensis DNA (PCR) E. chaffeensis Interp E. chaffeensis Comment Monoscreen Human Metapneumovir PCR Influenza Type A (PCR) Influenza Type B (PCR) M. pneumoniae (PCR) Parainfluenza 1 (PCR) Parainfluenza 2 (PCR) Parainfluenza 3 (PCR) Parainfluenza 4 (PCR) Parvovirus Source Parvovirus B19 Detect RSV (PCR) Entero/Rhino (PCR) Rickettsia IgG Ab Rickettsia IgM Ab Blood Parasites ID Cancelled Miscellaneous Test Blood Type Blood Type Recheck Antibody Screen Crossmatch 04/01/23 04/01/23 04/01/23 08:35 08:37 Unknown WBC RBC Hgb Hct MCV MCH MCHC RDW Std Deviation RDW Coeff of Don Plt Count MPV Immature Gran % (Auto) Neut % (Auto) Lymph % (Auto) [place] % (Auto) Eos % (Auto) Baso % (Auto) Neut # (Auto) Lymph # (Auto) [place] # (Auto) Eos # (Auto) Baso # (Auto) Immature Gran # (Auto) Neutrophils % (Manual) Band Neutrophils % Lymphocytes % (Manual) Prolymphocyte % Reactive Lymphs % (Man) Monocytes % (Manual) Eosinophils % (Manual) Basophils % (Manual) Metamyelocytes % (Man) Myelocytes % (Man) Promyelocytes % (Man) Blast Cells % (Manual) Plasma Cell % (Manual) Other Cells % Nucleated RBC % Neutrophils # (Manual) Band Neutrophils # Total Absolute Neuts Lymphocytes # (Manual) Prolymphocyte # Reactive Lymphs # Total Abs Lymphocytes Monocytes # (Manual) Eosinophils # (Manual) Basophils # (Manual) Metamyelocytes # (Man) Myelocytes # (Manual) Promyelocytes # (Man) Blast Cells # (Man) Plasma Cell # (Manual) Other Cells # Nucleated RBCs # (Man) Hypersegmented Neuts Hyposegmented Neuts Hypogranular Neuts Large Granular Lymphs # Lrg Granular Lymphs Hairy Cells Smudge Cells Toxic Granulation Toxic Vacuolation Dohle Bodies Bubba Rods Platelet Estimate Hypogranular Platelets Giant Platelets Platelet Satelliting RBC Morphology Polychromasia Hypochromasia Poikilocytosis Basophilic Stippling Anisocytosis Microcytosis Macrocytosis Spherocytes Pappenheimer Bodies Sickle Cells Target Cells Tear Drop Cells Ovalocytes Stomatocytes [place] Bodies Echinocytes Acanthocytes (Spur) Rouleaux RBC Agglutinates Schistocytes Peripher Smr Path Cons Sezary Cell Haptoglobin PT INR APTT PTT Ratio Fibrinogen Sodium Potassium Chloride Carbon Dioxide Anion Gap BUN Creatinine Est Cr Clr Drug Dosing Est GFR ( Amer) Est GFR (Non-Af Amer) BUN/Creatinine Ratio Glucose POC Glucose Estimat Average Glucose Hemoglobin A1c Lactate Calcium Phosphorus Magnesium Ferritin Total Bilirubin Direct Bilirubin AST ALT Alkaline Phosphatase Lactate Dehydrogenase Troponin I High Sens Total Protein Albumin Triglycerides Interleukin 2-Receptor Pending Procalcitonin TSH Random Cortisol Urine Color Urine Appearance Urine pH Ur Specific [place] Urine Protein Urine Glucose (UA) Urine Ketones Urine Blood Urine Nitrite Urine Bilirubin Urine Urobilinogen Ur Leukocyte Esterase Urine WBC (Auto) Urine RBC (Auto) U Hyaline Cast (Auto) U Epithel Cells (Auto) Urine Bacteria (Auto) Nasal Screen MRSA (PCR) Negative Salicylates Acetaminophen Adenovirus (PCR) Anaplasma Smear A. phagocytophilum DNA Babesia Smear Babesia microti DNA PCR B. pertussis DNA (PCR) B.parapertussis DNA PCR Lyme Disease IgG Ab Lyme IgG (Western Blot) Lyme IgG 18 kDa Band Lyme IgG 23 kDa Band Lyme IgG 28 kDa Band Lyme IgG 30 kDa Band Lyme IgG 39 kDa Band Lyme IgG 41 kDa Band Lyme IgG 45 kDa Band Lyme IgG 58 kDa Band Lyme IgG 66 kDa Band Lyme IgG 93 kDa Band Lyme IgM Ab (WB) Lyme Disease IgM Ab Lyme IgM 23 kDa Band Lyme IgM 39 kDa Band Lyme IgM 41 kDa Band C. pneumoniae DNA (PCR) Coronavirus OC43 (PCR) Coronavirus HKU1 (PCR) Coronavirus 229E (PCR) SARS-CoV-2 (PCR) Coronavirus NL63 (PCR) E. chaffeensis IgG Ab E. chaffeensis IgM Ab E.chaffeensis DNA (PCR) E. chaffeensis Interp E. chaffeensis Comment Monoscreen Human Metapneumovir PCR Influenza Type A (PCR) Influenza Type B (PCR) M. pneumoniae (PCR) Parainfluenza 1 (PCR) Parainfluenza 2 (PCR) Parainfluenza 3 (PCR) Parainfluenza 4 (PCR) Parvovirus Source Parvovirus B19 Detect RSV (PCR) Entero/Rhino (PCR) Rickettsia IgG Ab Rickettsia IgM Ab Blood Parasites ID Miscellaneous Test Pending Blood Type Blood Type Recheck Antibody Screen Crossmatch Pathologist review of peripheral smear 04/01/2023 Peripheral smear for review of moderate complexity: This peripheral smear for review reveals mild anisocytosis of the red blood cells, scattered echinocytes, markedly decreased numbers of platelets, and only extremely rare leukocytes. Platelet clumping is not seen. Very rare cytologically unremarkable PMN leukocytes and cytologically unremarkable lymphocytes are seen. I am unable to identify monocytes. Review of the patient's CBC reveals pancytopenia with a white blood cell count at 0.34 x 10 to the 9/L, hemoglobin concentration at 8.8 g/dL and a platelet count of 22 x 10 to the 9/L. Review of the electronic medical record indicates the patient is a 47-year-old woman who had fevers for 2.5 weeks and has been treated with doxycycline for approximately 10 days for a recent diagnosis of anaplasmosis. She now presents with acute pancytopenia. According to the record, the patient presented to the emergency department complaining of fevers x 2.5 weeks and doxycycline treatment for approximately 10 days. She had increased lactate level in the serum and acute pancytopenia along with splenomegaly. She is described as chronically immunosuppressed. The record indicates the patient has diabetes mellitus, hearing loss and metabolic acidosis. Thus, the most important finding in this peripheral smear for review there is no evidence of circulating blasts or lymphoma cells. The patient clearly is cytopenic. Monocytes and histiocytes are not seen and thus there is no evidence of hemophagocytocytosis in the peripheral blood but of course that is a finding more commonly found in bone marrow in terms of HLH (hemophagocytic lymphohistiocytosis). As such, please note that I spoke with Dr. Ba Restrepo at 0858 hours on April 01, 2023 and the current plan is to transfer the patient to the [facility]. Peripheral smear for review: #1. Severe pancytopenia is seen. #2. Blasts, schistocytes, and spherocytes are all not seen. #3. There is no evidence of leukemia or lymphoma in terms of the presence of blasts or lymphoma cells in this peripheral smear for review. #4. Rare cytologically unremarkable PMN leukocytes and cytologically unremarkable lymphocytes are seen, but monocytes and histiocytes are not present and there is no evidence of hemophagocytosis in the peripheral blood. #5. Please see above discussion. Diagnostic Findings Chest X-Ray 03/31/23 19:14 XR chest 1V portable HISTORY: 47 years-old Female Sepsis acute sepsis COMPARISON: Chest CT of same day TECHNIQUE: AP view of the chest FINDINGS: Cardiomediastinal and hilar silhouettes are within normal limits. Mild reticular interstitial coarsening. No pneumothorax, pleural effusion or lobar airspace consolidation. The bones appear grossly intact. IMPRESSION: Mild reticular interstitial coarsening correlates with intralobular septal thickening on the comparison chest CT suggestive of pulmonary vascular congestion. ACT 112: Negative or not required by law. The above report was generated using voice recognition software. It may contain grammatical, syntax or spelling errors. Electronically signed by: Cam Sharif M.D. 04/01/2023 7:44 AM Abdomen/Pelvis CT 03/31/23 21:34 Exam(s): CT ABDOMEN + PELVIS Without Contrast EXAM: CT Abdomen and Pelvis Without Intravenous Contrast CLINICAL HISTORY: Reason for exam: elevated lfts. sepsis. TECHNIQUE: Axial computed tomography images of the abdomen and pelvis without intravenous contrast. CTDI is 45.81 mGy and DLP is 1928.24 mGy-cm. Automated exposure control was utilized for the study. A dose lowering technique was utilized adhering to the principles of ALARA. COMPARISON: CT abdomen pelvis March 18, 2023 FINDINGS: Lung bases: Unremarkable. No mass. No consolidation. ABDOMEN: Liver: Unremarkable. Gallbladder and bile ducts: Unremarkable. No calcified stones. No ductal dilation. Pancreas: Unremarkable. No ductal dilation. Spleen: Splenomegaly measuring up to 19.7 cm. This has increased when compared to CT scan from March 18, 2023. Correlate for etiology (correlate for lymphoma or mononucleosis). Indeterminate, peripherally calcified lesion in the spleen measures 5.0 x 4.7 cm. Stable when compared to March 18, 2023. Adrenals: Unremarkable. No mass. Kidneys and ureters: Unremarkable. No obstructing stones. No hydronephrosis. Stomach and bowel: Diverticulosis, without acute diverticulitis. No small bowel obstruction. PELVIS: Appendix: No findings to suggest acute appendicitis. Bladder: Unremarkable. No stones. Reproductive: IUD in the uterus. Calcified uterine fibroid measures 1. 8 cm. ABDOMEN and PELVIS: Intraperitoneal space: Unremarkable. No free air. No significant fluid collection. Bones/joints: No acute fracture. No dislocation. Soft tissues: Unremarkable. Vasculature: Unremarkable. No abdominal aortic aneurysm. Lymph nodes: Unremarkable. No enlarged lymph nodes. IMPRESSION: 1. Splenomegaly measuring up to 19.7 cm. This has increased when compared to CT scan from March 18, 2023. Correlate for etiology (correlate for lymphoma or mononucleosis). 2. Indeterminate, peripherally calcified lesion in the spleen measures 5. 0 x 4.7 cm. Stable when compared to March 18, 2023. 3. IUD in the uterus. 4. Diverticulosis, without acute diverticulitis. No small bowel obstruction. 5. No CT evidence of hepatic cirrhosis. Electronically signed by: Karthikeyan Barron MD 03/31/23 23:[address] 03/31/23 22:16 Exam(s): CT CHEST Without Contrast EXAM: CT Chest Without Intravenous Contrast CLINICAL HISTORY: Reason for exam: eval for opacity/lymphadenopathy. TECHNIQUE: Axial computed tomography images of the chest without intravenous contrast. CTDI is 45.81 mGy and DLP is 1928.24 mGy-cm. Automated exposure control was utilized for the study. A dose lowering technique was utilized adhering to the principles of ALARA. COMPARISON: No relevant prior studies available. FINDINGS: Lungs: Unremarkable. No mass. No consolidation. Pleural space: Unremarkable. No focal infiltrate, pleural effusion, or pneumothorax. Heart: Unremarkable. No cardiomegaly. No significant pericardial effusion. No significant coronary artery calcifications. Bones/joints: Unremarkable. No acute fracture. No dislocation. Soft tissues: Unremarkable. Vasculature: Unremarkable. No thoracic aortic aneurysm. Lymph nodes: Unremarkable. No enlarged lymph nodes. Spleen: Enlarged spleen measures 19.7 cm. Correlate for lymphoma or mononucleosis. IMPRESSION: 1. No focal infiltrate, pleural effusion, or pneumothorax. 2. Enlarged spleen measures 19.7 cm. Correlate for lymphoma or mononucleosis. Electronically signed by: Karthikeyan Barron MD 03/31/23 23:13 PM PG Care Time/CCT Total # of Minutes Spent Total Time Spent with Patient: Total time spent is greater than 50% in coordination of care (as documented) at patient's floor/unit and/or counseling patient: [place] [address] IN/OBS CONSULT LVL 4,60M Patient Type New History Expanded Problem Focused Exam Problem Focused Medical Decision Making High Complexity Diagnoses Pancytopenia D61.818 Spleen enlarged R16.1 Headache R51 Sepsis A41.9 Sepsis acute organ dysfunction status: unspecified Sepsis type: sepsis due to unspecified organism (4) Sepsis Sepsis acute organ dysfunction status: unspecified Sepsis type: sepsis due to unspecified organism Qualified Code(s): A41.9 - Sepsis, unspecified organism
--- NOTE | 2023-04-01 18:02 | Electrocardiogram Report ---
Test Reason : Blood Pressure : / mmHG Vent. Rate : 134 BPM Atrial Rate : 134 BPM P-R Int : 140 ms QRS Dur : 072 ms QT Int : 276 ms P-R-T Axes : 053 046 080 degrees QTc Int : 412 ms Sinus tachycardia T wave abnormality, consider inferior ischemia Abnormal ECG When compared with ECG of 25-MAR-2021 12:57, Nonspecific T wave abnormality now evident in Inferior leads Nonspecific T wave abnormality now evident in Anterolateral leads Confirmed by Daniel Mercedes [id number]) on 04/01/2023 6:02:12 PM Referred By: REFERRED SELF Confirmed By:Daniel Mercedes
--- NOTE | 2023-04-01 19:15 | Discharge Summary ---
Date of Service April 01, 2023 Admission HPI Per Admitting Provider 47-year-old female with past medical history significant for type 2 diabetes, diabetic polyneuropathy, hypertension, GERD, history of urinary retention, osteoporosis, history of autoimmune inner ear disease, bilateral cataracts, history of vertigo, states ongoing fevers, headaches and bodyaches going on since prior to . Patient went to urgent on March 14 and her resp biofire was negative and she was prescribed doxycycline She was in the ER on March 16 as well still having high fevers UA was positive and she was sent home on cefdinir and also complete the doxycycline course.She was seen by PCP next monady and as she was not improving she was switched to Ceftin and doxycycline was stopped after 4 days. Patient again came to ER on March 18 as she was having high fevers 103.9. Prior urine cultures were unremarkable. But Anaplasma screen came back positive. She was given doxycycline. Again she went to PCP on March 28 complaining of nausea, heart racing short of breath and weakness. There is a plan to get IV fluids but IV line could not be established. She comes to the ER today with complaining of shortness of breath, fevers, body aches, feeling of exhaustion, dry cough, headaches, poor appetite generalized weakness. Found to have Pancytopenia and tachycardia and temp spikes. Past Anaplasma DNA test came back negative. Labs are again sent for tick borne illness Lyme screen came back positive. Question of babesiosis. Denies any chest pain. No runny nose. No diarrhea . No hematuria. Patient is somewhat hard of hearing. Has cochlear implant. 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 Initial lactic acid was 4.2 and repeat is 2.8. Denies any blood in stools or hematuria. In the ER after cefepime developed itchiness and rash that resolved now Past medical history. As mentioned above. Past surgical history. 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 Biopsy of soft tissue left ankle. Dental surgery. Cochlear device implantation with mastoidectomy right side. Left wrist surgery. Exploratory surgery on left wrist scar tissue removed. Social history. Quit smoking in 2010. Smoked half pack for 12 years. Alcohol glass of wine every month. No drug use Family history. Mother has diabetes. Hypertension. Father has hypertension. Glaucoma. Brother has hypertension Principal Diagnosis pancytopenia Discharge Exam After temperature of 38.1 on presentation this admission her temperatures have been less than 38 since. Pulse ox is excellent on room air, she does have a moderate tachycardia at 112 with BP 102/56 I cannot examine the patient myself currently but note that the admission history and physical from the hospital service suggest no ongoing skin rash, major petechiae/bruising or bleeding, adenopathy, abdominal tenderness, or other major focal change Discharge Data Allergies Allergy/AdvReac Type Severity Reaction Status Date / Time clindamycin Allergy Intermediate Hives Verified 03/21/23 10:41 morphine Allergy Intermediate HIVES Verified 03/21/23 10:41 Penicillins Allergy Intermediate HIGH FEVER Verified 03/21/23 10:41 AND HIVES Sulfa (Sulfonamide Allergy Intermediate HIVES Verified 03/21/23 10:41 Antibiotics) Consultations 03/31/23 20:02 ED Decision to Admit Stat 03/31/23 23:30 Consult Phd Internship Routine 04/01/23 08:09 Consult Physician Routine 04/01/23 09:00 Consult Infectious Diseases Routine 04/01/23 09:07 Burn CD for patient Stat Ordered Studies 03/31/23 21:34 CT Abd and Pelvis [CT abd pelvis wo con] Stat 03/31/23 22:16 CT chest diagnostic wo con Stat Hospital Course (1) Pancytopenia: 3-week illness with headaches, bodyaches, and high fevers (though not on this admission) and failure to improve after series of antibiotics. Now with trilineage pancytopenia though a pathologist review of peripheral smear that is relatively unremarkable except for those low blood counts and specifically does not suggest microangiopathic changes, immature/pathologic cell forms, or other acute process Patient did have an initial positive smear for intracytoplasmic neutrophilic inclusions though those are not seen on a more recent study, PCR for Anaplasma is pending. She did have positive IgM studies for Lyme and both HSV-1 and 2. We note that she is somewhat immunocompromised with long-term treatment with Imuran/prednisone and therefore may be more susceptible to both common and unusual infections. Her symptoms have not resolved even after antibiotics including doxycycline. Current database is significant for significant pancytopenia, notably hemoglobin improved after single unit of red cell transfusion overnight. Coagulation times are moderately prolonged with a depressed fibrinogen level and markedly elevated D-dimer suggesting an element of consumptive coagulopathy. Creatinine is quite stable, ferritin is severely elevated with liver enzymes moderately elevated noting the bilirubin of 2.6 but with normal ALT, AST only approximately 3 times normal, and alk phos only twice normal triglycerides are moderately increased, TSH is normal. Imaging shows a significant evolution of splenomegaly though without marked adenopathy or other major findings in the chest/abdomen/pelvis of concern Notably the LDH is only moderately elevated. The normal creatinine, and only moderate elevation of LDH with no schistocytes on peripheral smear all suggest against a microangiopathic process. While that does not exclude HLH seems to go somewhat against that as well. There is no evidence of immature forms in the peripheral circulation but that certainly does not exclude an acute leukemia, major lymphoproliferative process, or even a malignancy involving the marrow though the latter would be unlikely in the absence of peripheral manifestations on the CT scan. Aplastic anemia is a consideration and indeed the response to Red cell transfusion suggests that we are dealing with a hypoproductive process at least with regards to red cells rather than a destructive process. Haptoglobin and reticulocyte count are pending for further assessment of that. Aplastic anemia would not usually be associated with the high fevers and systemic manifestations that she showsit can be a late consequence of hepatitis C infection but not necessarily part of the initial presentation. Secondary pancytopenia due to a significant infectious process and/or drug effect (rare from cephalosporins but not completely excluded; azathioprine can certainly be associated with pancytopenia if there has been some alteration of his recent metabolixm) are certainly in the differential diagnosis as well Marrow aspiration and biopsy early on will be an important part of her overall evaluation to quickly and more definitively understand the presence or absence of a primary hematologic process both for prognostication but also for specific treatment planning. the case discussed with hematology and the following visit recommendation: Not clear that we are dealing with a primary hematologic disorder. Marrow aspiration biopsy could be pivotal in understanding the pancytopenia and the splenomegaly that might be primarily hematologic in origin. We can certainly p erform marrow aspiration and biopsy here and get good initial interpretation though our turnaround on a more sophisticated studies is delayed because our lab is not set up to do those in house. Among the hematologic differentials, HLH and acute leukemia in particular and for that matter aplastic anemia would require quaternary center care. I think in a younger patient who is previously reasonably healthy, it would be far more prudent to transfer her to such a center earlier rather than later so that diagnostics can be more efficiently pursued and she has a focused hematology/ID/rheumatology team to help look after her Subsequently patient was transferred to [facility] (2) Spleen enlarged: Acute onset of splenic enlargement could be secondary to a severe infection but as well could be an indicator for lymphoproliferative process even in the absence of pathologic adenopathy and a peripheral lymphocytosis. It is far preferable to avoid any biopsy, aspiration, removal of the spleen especially in acute circumstances. Marrow aspiration biopsy may indirectly offer diagnostic possibilities. Given that acute enlargement, she is at some risk for splenic rupture and any acute change in vital signs, abdominal symptoms, or mentation should include that in the differential. (3) Headache: History of headache with low blood counts and a febrile illness suggests a need for rigorous evaluation ICT ANALYST to exclude bleed, any signs of inflammation/infection or discrete lymphoma like mass. MRI of the brain might be more sensitive for meningeal changes that might accompany what ever systemic process she has. Depending on those findings and ongoing symptoms as well as any peripheral diagnosis of HLH, may have to also consider CSF sampling (4) Sepsis: Especially given her medication-induced immunocompromise, have to be very careful to appropriately treat her for sepsis empirically even as we pursue a more broad differential diagnosis. She does have some elements of DIC but the available chart data does not suggest that there is any major signs of hemostasis. In general, treatment of the latter condition specifically would focus primarily on addressing the underlying cause. Up-to-Date does not suggest plasma or platelet transfusions based on numbers alone (except for platelets less than 10-20,000) though it would be aggressive with those supplements if there are signs of any concern over bleeding. ID consultation and ongoing assistance in management will be critical to be sure we are incorporating appropriate empiric treatment for atypical etiologies pending more complete data Plan 1. Not clear that we are dealing with a primary hematologic disorder. Marrow aspiration biopsy could be pivotal in understanding the pancytopenia and the splenomegaly that might be primarily hematologic in origin. We can certainly perform marrow aspiration and biopsy here and get good initial interpretation though our turnaround on a more sophisticated studies is delayed because our lab is not set up to do those in house. Among the hematologic differentials, HLH and acute leukemia in particular and for that matter aplastic anemia would require quaternary center care. I think in a younger patient who is previously reasonably healthy, it would be far more prudent to transfer her to such a center earlier rather than later so that diagnostics can be more efficiently pursued and she has a focused hematology/ID/rheumatology team to help look after her 2. To supplement the current database, we will submit folic acid, B12, reticulocyte counts and request for an acute hepatitis and CMV IgM screen. Given her previous treatment with immunosuppressive medications we will check immunoglobulin levels - if IgG is low it may be worthwhile supplementing that to help overcome any infection. Would strongly suggest that patient be approached for consent to perform HIV screening to complete appropriate background assessmentsthis is not based on any concern that she has particular behaviors that put her at higher risk but unfortunately any patient who has been involved in medical care may have had inadvertent exposures through suboptimally sterilized equipment. This is extremely rare but would be important to exclude rigorously 3. The infectious disease spectrum of the differential is a very important part of our overall concern. ID consultation is pending here but again there may be richer resources available in a quaternary center. Given the history of autoimmune disorder, rheumatology evaluation may be part of her ongoing assessment and management. ID and pharmacy may also be able to get perspectives on any drug related concerns. Certainly the Imuran may contribute to pancytopenia especially if there has been a compromise of metabolism during this evolving illness and should remain on hold until we have a better understanding of her overall situation. 4. Need to be acutely aware of the risk for splenic rupture and rapidly react to any suggestive changes in status 5. In the absence of bleeding, would be prudent with transfusions. Would probably be worthwhile to keep her platelet counts above the 10-20,000 range as per up-to-date recommendations but it is not clear that we need to immediately supplement with plasma or cryoprecipitate based on their recommendations. Would be very conservative with cellular blood transfusions overall, aplastic anemia is unlikely but if she does have that diagnosis and is at all considered a candidate for aggressive and early transplant, cumulative transfusions may impact upon its outcome. In a younger patient who is oxygenating well and without major history of cardiovascular issues I would be fairly strict using a 7 g/dL threshold for transfusion of red cells and would radiate all transfused products for now Apparently plans are underway for her transfer to [facility]. I remain available electronically through [employer] if there are any issues or concerns that arise prior to the completion of that transfer Total Time Total Time Spent Total Time Spent (In Minutes): 45 Discharge Plan Discharge Items Patient Disposition: Transfer Acute Care Hospital Reason For Visit: SEVERE SEPSIS, PANCYTOPENIA Discharge Diagnosis: Anaplastosis Condition on Discharge: Serious Activity: Resume your previous activity Bathing: No limitations Sexual Activity: When tolerated Exercise/Sports: None Driving/Machine Use: No limitations Weightbearing: Full weightbearing Non-emergency contact: Primary Care Provider and Oncologist Call non-emergency contact if: you have any medication questions Follow-up/Referrals: John Matt DO [Primary Care Provider] - Diet: Carb Count or DM1 and Low Sodium (2gm) Addtl Attending Provider Instructions: the patient will be tranferred to another facility Pending Studies at Discharge: No Stand-Alone Forms: My [facility] Skilled Items Patient informed of condition?: Yes DNR: No Discharge Level of Care: Other Communicable Disease: No Discharge Prognosis: Stable Lines: None Urinary Catheter: No Medications and DC Order Prescriptions: Continued prednisone 5 mg tablet 7.5 mg PO QAM cholecalciferol (vitamin D3) [Vitamin D3] 1,000 unit Capsule 1,000 unit PO QAM azathioprine 50 mg tablet 100 mg PO BID ibuprofen 200 mg Tablet 600 mg PO QID PRN (Reason: Pain) omeprazole 20 mg capsule,delayed release(DR/EC) 20 mg PO QAM acetaminophen 500 mg Tablet 1,000 mg PO DIRECTED PRN (Reason: Fever/PAIN) lisinopril 20 mg tablet 20 mg PO QAM cyanocobalamin (vitamin B-12) [Vitamin B-12] 1,000 mcg Tablet 1,000 mcg PO DAILY valacyclovir 500 mg tablet 500 mg PO QPM ferrous sulfate [iron] 325 mg (65 mg iron) Tablet 325 mg PO DAILY Ozempic 1 mg/dose (4 mg/3 mL) pen injector 1 mg SUBCUT WK Rx Instructions: WEDNESDAYS doxycycline hyclate 100 mg tablet 100 mg PO Q12H 14 Days Qty: 28 0RF ondansetron HCl 4 mg tablet 4 mg PO Q6 PRN (Reason: Nausea) Discharge Orders: Discharge Order (Routine); Ordered 04/01/23 Ordered By: Esteban Christensen/Other Patient Handouts: Managing Type 2 Diabetes Admission Data Admit Date/Time: 03/31/23 21:43 Attending Provider: Esteban Bonilla Admit Provider: Jose M Masters Primary Care Provider: John Matt Other Providers: Jose M Masters; Chan Nguyen; Fly Guerin; Adria Norwood; Olamide Cardenas; Cam Castellanos I.; Nino Mcdonough II; Kathleen Latham; Ray Whitaker; Nii Lee; Robert Montiel Other Interventions: Discharge Summary Assessment (RN) Last Done: 04/01/23 10:11 Coding Level of Care Code 57452 INP/OBS DISCH >30 MIN Diagnoses Pancytopenia D61.818 Spleen enlarged R16.1 Headache R51 Sepsis A41.9 Sepsis acute organ dysfunction status: unspecified Sepsis type: sepsis due to unspecified organism
[2023-04-01] MEDS ORDERED: AZITHROMYCIN 500 MG in DEXTROSE 5% 250 ML IV SCH (20:00)
[2023-04-01] MEDS ORDERED: valACYclovir HCL 500 MG TABLET PO SCH (21:00)
[2023-04-03 03:37] LABS: 18KDIGG Band NON-REACTIVE; 23KDIGG Band NON-REACTIVE; 23KDIGM Band REACTIVE; 28KDIGG Band NON-REACTIVE; 30KDIGG Band NON-REACTIVE; 39KDIGG Band NON-REACTIVE; 39KDIGM Band REACTIVE; 41KDIGG Band NON-REACTIVE; 41KDIGM Band NON-REACTIVE; 45KDIGG Band NON-REACTIVE; 58KDIGG Band NON-REACTIVE; 66KDIGG Band NON-REACTIVE; 93KDIGG Band NON-REACTIVE; Lyme Antibodies, WB IgG NEGATIVE (NEGATIVE); Lyme Antibodies, WB IgM POSITIVE (NEGATIVE)
[2023-04-04 07:08] LABS: Ehrlichia chaff DNA Bld Negative (Negative)
[2023-04-04 13:52] LABS: Babesia microti DNA Not Detected (Not Detected); Ehrlichia chaff IgG Ab <1:64 (<1:64); Ehrlichia chaff IgM Ab <1:20 (<1:20)
--- NOTE | 2023-04-05 08:11 | Coding Query ---
SEPSIS To promote full compliance with coding requirements relating to patient care, physician participation is requested in all cases of personal care aide uncertainty. Please assist us with the question(s) below: I The medical record reflects the following clinical findings: H/P documented Sepsis / Septic shock. Please check below the diagnosis if applicable, that was treated during this inpatient stay. Please note [place] [facility] ____ ( )Bacteremia (Nonspecific laboratory finding of bacteria in the blood) Specify Organism ( ) Present on Admission ( ) Not present on admission ( ) Unable to clinically determine ( ) Septicemia (Systemic disease associated with the presence of pathogenic microorganisms in the blood): Specify Organism ( ) Present on Admission ( ) Not present on admission ( ) Unable to clinically determine ( ) Sepsis Specify Organism Specify Associated Condition/Diagnosis ( ) Present on Admission ( ) Not present on admission ( ) Unable to clinically determine ( ) Severe Sepsis (Sepsis associated with acute organ dysfunction) Specify Organism Specify Associated Condition/Diagnosis ( ) Present on Admission ( ) Not present on admission ( ) Unable to clinically determine ( ) Septic Shock (Severe sepsis with acute circulatory failure, unexplained by other causes) ( ) Present on Admission ( ) Not present on admission ( ) Unable to clinically determine ( ) Other, patient has: MTDD
[2023-04-08 10:16] LABS: Parvovirus B19 Qual Source PLASMA; RMSF IgG Ab Not Detected (Not Detected); RMSF IgM Ab Not Detected (Not Detected)
== END 2023-04-01 11:37 | disposition short-term general hospital (02) | DRG 871 ==
LOC: ED 18:59 → SUATTDRO 21:43 → 1E 21:43